=== PATIENT | female | born 1980 | race Caucasian/White ===

== ENCOUNTER 2020-09-02 14:42 | Emergency (ER) | payer MEDICAID, SELFPAY | END 2020-09-02 16:33 | disposition left against medical advice (07) | PROVIDERS: Emergency Provider Emergency Medicine | DX: R10.9 Unspecified abdominal pain (principal) ==

== ENCOUNTER → 2020-09-09 14:49 | Outpatient (BNVA) | payer MEDICAID, SELFPAY | PROVIDERS: Visit Provider Advanced Practice Midwife | DX: O09.899 Supervision of other high risk pregnancies, unspecified trimester (principal); E66.01 Morbid (severe) obesity due to excess calories; Z68.43 Body mass index [BMI] 50.0-59.9, adult; N92.6 Irregular menstruation, unspecified; F17.210 Nicotine dependence, cigarettes, uncomplicated | CPT/HCPCS: 81025; 99212 ==

== ENCOUNTER 2020-09-11 14:24 | Outpatient (REF) | payer MEDICAID, SELFPAY ==
--- NOTE | ~2020-09-11 | US_ITS ---
EXAMINATION: OBSTETRICAL ULTRASOUND, FIRST TRIMESTER HISTORY: 40-year-old with the uncertain dates AMA LMP: 07/10/2020 COMPARISON: None TECHNIQUE: Real time transabdominal imaging with color and M-mode Doppler. FINDINGS: A single, live IUP CRL of 22 mm c/w 8.6wks is noted. Heart Rate: 167 beats per minute. Unable to visualize the ovaries due to bowel gas. GESTATIONAL AGE: 1. GA from LMP: 9.0 wks 2. GA from AUA: 8.6 wks ESTIMATED DATE OF DELIVERY: 1. VILLA from LMP: 04/16/2020 2. VILLA from AUA: 04/17/2021 US/US OB <= 14 weeks fetus IMPRESSION: A single live IUP CRL is consistent with 8.6 weeks of gestation confirming her VILLA of 04/16/2021 Unable to visualize ovaries. Thank you very much for this referral. This note was generated with a voice recognition program. Please excuse any errors which may have been overlooked during my review of this note. Sometimes these errors may affect the content or meaning of a given sentence.
== END 2020-09-11 14:25 | disposition home or self-care (01) ==
LOC: HO.US 14:24
PROVIDERS: Visit Provider Family Medicine
DX: O09.511 Supervision of elderly primigravida, first trimester (principal); Z3A.08 8 weeks gestation of pregnancy
CPT/HCPCS: 76801

== ENCOUNTER 2020-10-02 12:46 | Outpatient (REF) | payer MEDICAID, SELFPAY ==
--- NOTE | ~2020-10-02 | US_ITS ---
EXAMINATION: OBSTETRICAL ULTRASOUND, FIRST TRIMESTER HISTORY: 40-year-old at 12.0 weeks of gestation AMA High BMI Family history of congenital abnormalities NT screening COMPARISON: 09/11/2020 TECHNIQUE: Real time transabdominal imaging with color and M-mode Doppler. FINDINGS: A single, live IUP CRL of 59 mm c/w 12.3wks is noted. Heart Rate: 165 beats per minute. Normal yolk sac seen. NT was 1.5.mm. NB Present The embryo appears sonographically wnl for this GA. Right ovary is within normal limits. The left ovary was not seen. GESTATIONAL AGE: 1. Established GA: 12.0 wks 2. GA from AUA: 12.3 wks ESTIMATED DATE OF DELIVERY: 1. Established VILLA: 04/16/2021 2. VILLA from [facility]: 04/13/2021 US/US OB 1T nuc measure IMPRESSION: 1. A single live IUP 2. Size equals dates 3. NT of 1.5 mm MFM Consultation: I reviewed the ultrasound findings along with significance of NT measurement. The NT of less than 3mm is generally reassuring. However, the sensitivity for T21 detection is only 60%. I reviewed the availability of serum aneuploidy screening which includes cell-free DNA and placental protein based tests. I discussed the sensitivity, false-positive rate, and other limitations associated with each test. I also reviewed the availability of invasive diagnostic tests that are associated small but definite risk of miscarriage. We also reviewed the differences between screening tests and diagnostic tests. After our discussion, she opted for the First trimester screening that is based on cell-free DNA or non-invasive testing (NIPT). She has a son who was born with hydrocephalus, open spina bifida and VSD that the closed spontaneously. He has multiple issues secondary to be open neural tube defect. Her first child was a healthy girl. Given her history, the risk to her fetus is approximately 3-5% for open neural tube defect. I recommended that she get maternal serum AFP screening for open neural tube defect at approximately 16 weeks of gestation. This should be followed by a survey at approximately 18-20 weeks of gestation. echo cardiography may be considered. I informed the patient that the survey and mid second trimester has 90% sensitivity for open neural tube defect. She is scheduled for an MFM consultation at the [facility] on October 30. Thank you very much for this referral. Total time 30 minutes. The time spent was devoted to counseling the patient about the disease and diagnosis, coordinating care including reviewing her records, pertinent lab data and studies, as well as discussing diagnostic evaluation and workup, plan therapeutic interventions and future disposition of care. This includes any additional research needed to obtain further information in formulating the plan of care of this patient. This note was generated with a voice recognition program. Please excuse any errors which may have been overlooked during my review of this note. Sometimes these errors may affect the content or meaning of a given sentence.
== END 2020-10-02 12:47 | disposition home or self-care (01) ==
LOC: HO.US 12:46
PROVIDERS: Visit Provider Advanced Practice Midwife
DX: Z36.82 Encounter for antenatal screening for nuchal translucency (principal); O09.511 Supervision of elderly primigravida, first trimester; Z3A.12 12 weeks gestation of pregnancy
CPT/HCPCS: 76813

== ENCOUNTER 2020-10-10 17:11 | Emergency (ER) | payer MEDICAID, SELFPAY ==
--- NOTE | ~2020-10-10 | US_ITS ---
EXAMINATION: US OBSTETRICAL ULTRASOUND CLINICAL INFORMATION: 13 weeks, vaginal bleeding COMPARISON: None. LMP: 07/10/2020. Gestational age by maternal dates is 13 weeks 1 day. Estimated date of delivery by maternal dates is 04/16/2021. TECHNIQUE: Ultrasound of the maternal pelvis is performed using transabdominal transducer. M-mode Doppler is also performed. FINDINGS: There is a single intrauterine gestational sac with a fetus and cardiac activity. There is no significant subchorionic hemorrhage or hematoma. HR: 169 beats per minute. CRL (crown rump length): 7.8 cm (13 weeks 6 days +/- 4 days). VILLA (estimated date of delivery): 04/11/2021 +/- 4 days. MATERNAL ADNEXA: Maternal right ovary not seen. Normal-appearing maternal left ovary measuring 2.8 x 2.3 x 1.8 cm. There is no significant maternal adnexal mass. No maternal pelvic ascites. US/US OB <= 14 weeks fetus IMPRESSION: 1. Single intrauterine gestation with ultrasound gestational age 13 weeks 6 days, 5 days less than dates. 2. Sonographic VILLA 04/11/2021. 3. No maternal adnexal mass or pelvic ascites.
[2020-10-10 17:15] VITALS: BP 130/67; PULSE 110; RESP 18; TEMP 36.9; O2SAT 97; BMI 42.0
[2020-10-10 18:38] VITALS: BP 106/68; PULSE 97; RESP 18; TEMP 36.6; O2SAT 97
[2020-10-10] MEDS: ondansetron HCL 4 MG/2 ML VIAL IVPUSH (18:57)
--- NOTE | 2020-10-10 19:00 | PC.NURSE ---
SUPPLIES FOR PELVIC EXAM BROUGHT TO BEDSIDE. AWAITING PROVIDER EVAL.
--- NOTE | 2020-10-10 19:02 | ED_ITS ---
HPI - General Chief complaint: Vaginal Bleeding Stated complaint: abd pain, bleeding 13 wks preg Time Seen by Provider: 10/10/20 18:34 Source: patient Mode of arrival: ambulatory Limitations: no limitations History of Present Illness HPI Narrative: 40-year-old female past medical history of morbid obesity, tobacco dependent, asthma, 4, para 2, both emergent with complications, miscarriage at age 20 prior to her children presents with sudden onset of lower abdominal cramping and vaginal bleeding. She is 13 weeks , and has not had any complications with her until this point. She was seen for constipation, given some medications and after large BM she noted vaginal bleeding. Vaginal bleeding has not stopped, approximately 1 pad per hour. She does not report any trauma or assault, chest pain or pressure, palpitations, shortness of breath, abdominal distention, dysuria, and edema. Related Data : 4 Para: 2 Total number of abortions (spontaneous and elective): 1 Home Medications Medication Instructions Recorded Confirmed albuterol sulfate 90 mcg/actuation 2 inh INHALATION Q4-6H PRN 09/09/20 breath activated powder inhaler Allergies Allergy/AdvReac Type Severity Reaction Status Date / Time No Known Allergies Allergy Verified 10/10/20 17:14 Review of Systems Review of Systems: Constitutional: No Fever, No Chills ENT/Mouth: No sore throat, No Rhinorrhea Eyes: No Eye Pain, No Redness Cardiovascular: No Chest Pain, No SOB Respiratory: No Cough, No Sputum, No Wheezing Gastrointestinal: positive Nausea, No Vomiting, No Diarrhea, positive abdominal pain, Genitourinary: Positive , positive irregular bleeding, No Dysuria, No Urinary Frequency, positive pelvic pain Musculoskeletal: No Myalgias Skin: No rash Neuro: No Weakness, No Headache Psych: No Anxiety/Panic, No Depression Heme/Lymph: No bruising, No Lymphadenopathy Endocrine: No Polyuria, No Polydipsia Yes all other systems are reviewed and are negative PMFSH Past Medical History Attestation statement: The following information was validated with the patient. Source: old records reviewed Medical History Asthma Bronchitis Cigarette smoker Morbid obesity with body mass index (BMI) of 50.0 to 59.9 in adult Tuberculosis Surgical History History of 2 sections : 4 Para: 2 Total number of abortions (spontaneous and elective): 1 Family History Family History Mother Diabetes mellitus Father Diabetes mellitus Sister Diabetes mellitus Social History Social History Alcohol intake: never Smoking Status: Never smoker Tobacco Type: Cigarette Cigarettes Per Day: 4 Use of substances other than those prescribed or required for medical reasons: No Advance Directives: No Advance Directives Information Provided: No Physical Exam Vital Signs: Vital Signs: Last Vital Signs Temp 98.4 F 10/10/20 21:53 Pulse 95 10/10/20 21:53 Resp 18 10/10/20 21:53 BP 113/67 10/10/20 21:53 Pulse Ox 97 10/10/20 21:53 Body Mass Index 42.0 Appearance: Alert. Oriented X3. No acute distress. Eyes: Pupils equal, round and reactive to light. EOMI, sclera nonicteric ENT: Pharynx normal. Moist mucous membranes Neck: Normal inspection. Neck supple. CVS: Normal heart rate and rhythm. Pulses normal. Respiratory: No respiratory distress. Breath sounds normal. Abdomen: Soft, obese, and nontender. Skin: Skin warm and dry. Normal skin color. Normal skin turgor. Extremities: No lower extremity edema. Moves all extremities against resistance. Neuro: No motor deficit. No sensory deficit. Cranial nerves 2-12 intact, no focal neural deficits. : General: Yes bladder normal to palpation External Female Exam: normal external appearance and normal appearance of the urethra Speculum Exam - Vagina: normal appearance of the vagina and normal palpation Speculum Exam - Cervix: normal appearance of the cervix, Cervical os closed (Two C sections, cervix appears nulliparous) and Abnormal cervical discharge present bloody Bimanual exam- vagina & uterus: normal bimanual exam, normal palpation, bladder normal to palpation and uterine mobility normal Bimanual Exam- Adnexa, other: normal adnexae, normal rectovaginal exam and no masses Course Course Course Narrative: 40-year-old female past medical history of morbid obesity, tobacco dependent, asthma, 4, para 2, both emergent with complications, miscarriage at age 20 prior to her children presents with sudden onset of lower abdominal cramping and vaginal bleeding. She is 13 weeks pr egnant, and has not had any complications with her until this point. Plan of care is for CBC, Chem 7, pelvic exam, AB0, hCG quant, and pelvic ultrasound. Labs are unremarkable, hCG quant over 15,000, A positive, there is bleeding from the os, os appears nulliparous secondary to C-sections. Pelvic ultrasound shows live intrauterine with heart rate of 165. At 9:13 p.m., discussion with Dr Wang, patient has a live intrauterine , plan is for patient to have bed rest, pelvic rest, and follow up with her OBGYN. This highly recommended that she follow up at [facility] in case she needs an emergent D and C as they have the medical equipment and providers on site. This recommendation will be discussed with the patient. Patient verbalized understanding of and agrees to plan of care discharge home. MDM - OB/Uterine Contractions MDM Narrative Medical decision making narrative: Abnormal vaginal bleeding, threatened , ectopic Medical Records Attestation: I reviewed the patient's medical records. Lab Data Attestation: I reviewed the patient's lab results. Result diagrams: 10/10/20 18:56 10/10/20 18:56 Labs: Lab Results 10/10/20 10/10/20 10/10/20 Range/Units 18:56 18:56 18:56 WBC 9.5 (4.8-10.8) X10*3/uL RBC 4.36 (4.20-5.50) X10*6/uL Hgb 12.7 (12.0-16.0) g/dl Hct 38.5 (37-47) % MCV 88.3 (80-98) fL MCH 29.1 (27.0-33.0) pg MCHC 33.0 (31.0-35.0) g/dl RDW 13.6 (11.0-16.0) % Plt Count 267 (160-400) X10*3/uL MPV 9.8 (9.4-12.3) fL Immature Gran % (Auto) 0.3 (0.0-0.4) % Neut % (Auto) 75.4 H (45-73) % Lymph % (Auto) 16.3 L (20-40) % [place] % (Auto) 6.8 (2-11) % Eos % (Auto) 0.8 (0-4) % Baso % (Auto) 0.4 (0-2) % Lymph # (Auto) 1.5 (1.2-4.9) X10*3/uL [place] # (Auto) 0.6 (0.1-1.2) X10*3/uL Eos # (Auto) 0.1 (0.0-0.4) X10*3/uL Baso # (Auto) 0.0 (0.0-0.2) X10*3/uL Abs Immat Gran (auto) 0.03 (0.00-0.03) X10*3/uL Absolute Neuts (auto) 7.1 (2.0-8.3) X10*3/uL Absolute Nucleated RBC 0.000 (0.0-0.012) X10*3/uL Nucleated RBC % (auto) 0.0 (0.0-0.2) /100WBC PT 12.1 (10.8-13.0) SEC INR 1.0 (0.9-1.1) APTT 32.1 (24.1-38.0) SEC Sodium 136 (135-145) mmol/L Potassium 4.0 (3.3-5.1) mmol/L Chloride 103 (96-108) mmol/L Carbon Dioxide 21 L (22-29) mmol/L Anion Gap 16 (12-20) BUN 6 L (9-16) mg/dL Creatinine 0.63 (0.5-1.4) mg/dL Estim Creat Clear Calc 135.8 Estimated GFR > 60 Random Glucose 82 (60-115) mg/dL Calcium 9.1 (8.4-10.2) mg/dL Beta HCG, Quant > 28015 mIU/mL Urine Color Urine Appearance Urine pH (5.0-8.0) Ur Specific [place] (1.005-1.025) Urine Protein (NEG-TRACE) MG/DL Urine Glucose (UA) (NEG) MG/DL Urine Ketones (NEG) MG/DL Urine Blood (NEG) Urine Nitrite (NEG) Ur Leukocyte Esterase (NEG) Urine RBC (0) /HPF Urine WBC (0-4) /HPF Ur Squamous Epith Cells /LPF Urine Bacteria /LPF Blood Type 10/10/20 10/10/20 Range/Units 19:11 21:15 WBC (4.8-10.8) X10*3/uL RBC (4.20-5.50) X10*6/uL Hgb (12.0-16.0) g/dl Hct (37-47) % MCV (80-98) fL MCH (27.0-33.0) pg MCHC (31.0-35.0) g/dl RDW (11.0-16.0) % Plt Count (160-400) X10*3/uL MPV (9.4-12.3) fL Immature Gran % (Auto) (0.0-0.4) % Neut % (Auto) (45-73) % Lymph % (Auto) (20-40) % [place] % (Auto) (2-11) % Eos % (Auto) (0-4) % Baso % (Auto) (0-2) % Lymph # (Auto) (1.2-4.9) X10*3/uL [place] # (Auto) (0.1-1.2) X10*3/uL Eos # (Auto) (0.0-0.4) X10*3/uL Baso # (Auto) (0.0-0.2) X10*3/uL Abs Immat Gran (auto) (0.00-0.03) X10*3/uL Absolute Neuts (auto) (2.0-8.3) X10*3/uL Absolute Nucleated RBC (0.0-0.012) X10*3/uL Nucleated RBC % (auto) (0.0-0.2) /100WBC PT (10.8-13.0) SEC INR (0.9-1.1) APTT (24.1-38.0) SEC Sodium (135-145) mmol/L Potassium (3.3-5.1) mmol/L Chloride (96-108) mmol/L Carbon Dioxide (22-29) mmol/L Anion Gap (12-20) BUN (9-16) mg/dL Creatinine (0.5-1.4) mg/dL Estim Creat Clear Calc Estimated GFR Random Glucose (60-115) mg/dL Calcium (8.4-10.2) mg/dL Beta HCG, Quant mIU/mL Urine Color RED Urine Appearance TURBID Urine pH 7.0 (5.0-8.0) Ur Specific [place] 1.025 (1.005-1.025) Urine Protein 2+ H (NEG-TRACE) MG/DL Urine Glucose (UA) NEG (NEG) MG/DL Urine Ketones 5 (NEG) MG/DL Urine Blood 3+ H (NEG) Urine Nitrite NEG (NEG) Ur Leukocyte Esterase NEG (NEG) Urine RBC 30-49 H (0) /HPF Urine WBC 0-2 (0-4) /HPF Ur Squamous Epith Cells 1+ /LPF Urine Bacteria 1+ /LPF Blood Type A Positive Imaging Data Ob transvaginal sound: Attestation: I personally reviewed and interpreted this imaging study as follows: Radiologist's impression: EXAMINATION: US OBSTETRICAL ULTRASOUND CLINICAL INFORMATION: 13 weeks, vaginal bleeding COMPARISON: None. LMP: 07/10/2020. Gestational age by maternal dates is 13 weeks 1 day. Estimated date of delivery by maternal dates is 04/16/2021. TECHNIQUE: Ultrasound of the maternal pelvis is performed using transabdominal transducer. M-mode Doppler is also performed. FINDINGS: There is a single intrauterine gestational sac with a fetus and cardiac activity. There is no significant subchorionic hemorrhage or hematoma. HR: 169 beats per minute. CRL (crown rump length): 7.8 cm (13 weeks 6 days +/- 4 days). VILLA (estimated date of delivery): 04/11/2021 +/- 4 days. MATERNAL ADNEXA: Maternal right ovary not seen. Normal-appearing maternal left ovary measuring 2.8 x 2.3 x 1.8 cm. There is no significant maternal adnexal mass. No maternal pelvic ascites. US/US OB <= 14 weeks fetus IMPRESSION: 1. Single intrauterine gestation with ultrasound gestational age 13 weeks 6 days, 5 days less than dates. 2. Sonographic VILLA 04/11/2021. 3. No maternal adnexal mass or pelvic ascites. Discharge Plan Discharge Clinical Impression: Morbid obesity with body mass index (BMI) of 50.0 to 59.9 in adult, Threatened , Dysfunctional uterine bleeding Patient Disposition: Home, Self-Care Instructions: Threatened Miscarriage (ED), at 11 to 14 Weeks (ED) Additional Instructions: You were evaluated for vaginal bleeding during 1st trimester . Your pelvic ultrasound shows intrauterine with a rate of 165, gestational age 13 weeks 6 days. Pelvic exam indicates bleeding from cervical os, you must follow-up with your OBGYN. It is highly recommended that you follow-up with [facility] as they have the equipment acquired for emergency procedures and . This was highly recommended by Dr. Wang. He also recommends pelvic rest, meaning nothing in the vagina, and bed rest until you see your OBGYN. Thank you for choosing this emergency department for evaluation. Please follow-up with primary care physician as needed. Return to the emergency department for any new, concerning, or worsening symptoms. Prescriptions: No Action albuterol sulfate 90 mcg/actuation aerosol powdr breath activated 2 inh inhalation Q4-6H PRNRF: 0 Referrals: Sang Wang MD [Physician] - 2 days (Abnormal uterine bleeding at 13 weeks 6 days .) Interventions: ED Discharge Assessment Last Done: 10/10/20 21:56 Discharge Date/Time: 10/10/20 21:56
[2020-10-10 19:05] LABS: MANUAL DIFF FLAG NO
[2020-10-10 19:07] LABS: Basophils Percent Auto 0.4 % (0-2); Eosinophils Absolute Auto 0.1 X10*3/uL (0.0-0.4); Eosinophils Percent Auto 0.8 % (0-4); Hematocrit 38.5 % (37-47); Hemoglobin 12.7 g/dl (12.0-16.0); Imm Gran Abs Auto 0.03 X10*3/uL (0.00-0.03); Imm Gran Pct Auto 0.3 % (0.0-0.4); Lymphocytes Absolute Auto 1.5 X10*3/uL (1.2-4.9); Lymphocytes Percent Auto 16.3 % (20-40); Mean Corpuscular Hemoglobin 29.1 pg (27.0-33.0); Mean Corpuscular Volume 88.3 fL (80-98); Mean Platelet Volume 9.8 fL (9.4-12.3); Monocytes Absolute Auto 0.6 X10*3/uL (0.1-1.2); Monocytes Percent Auto 6.8 % (2-11); Neutrophils Absolute Auto 7.1 X10*3/uL (2.0-8.3); Neutrophils Percent Auto 75.4 % (45-73); Platelet Count 267 X10*3/uL (160-400); Red Blood Count 4.36 X10*6/uL (4.20-5.50); Red Cell Distribution Width 13.6 % (11.0-16.0); White Blood Count 9.5 X10*3/uL (4.8-10.8)
[2020-10-10 19:20] LABS: Prothrombin Time 12.1 SEC (10.8-13.0)
[2020-10-10 19:23] LABS: Partial Thromboplastin Time 32.1 SEC (24.1-38.0)
[2020-10-10 19:31] LABS: Anion Gap 16 (12-20); Blood Urea Nitrogen 6 mg/dL (9-16); Calcium 9.1 mg/dL (8.4-10.2); Carbon Dioxide 21 mmol/L (22-29); Chloride 103 mmol/L (96-108); Creatinine Clr Calc Pharmacy 135.8; Estimated Glomerular Filt Rate > 60; Glucose Random 82 mg/dL (60-115); Sodium 136 mmol/L (135-145)
[2020-10-10 20:02] LABS: HCG Quantitative > 15000 mIU/mL
[2020-10-10 20:13] VITALS: BP 104/69; PULSE 95; RESP 18; TEMP -12.5; TEMP 9.5; O2SAT 97
[2020-10-10 21:22] LABS: Glucose Urine UA NEG (NEG); Leukocyte Esterase Urine NEG (NEG); Nitrite Urine NEG (NEG); Specific Gravity - Urine 1.025 (1.005-1.025); Urine Blood 3+ (NEG); Urine Ketones 5 MG/DL (NEG); Urine Protein 2+ MG/DL (NEG-TRACE)
[2020-10-10 21:23] LABS: Appearance Urine TURBID; Color Urine RED
[2020-10-10 21:38] LABS: RBC Urine 30-49 /HPF (0); WBC Urine 0-2 /HPF (0-4)
[2020-10-10 21:39] LABS: Bacteria Urine 1+ /LPF; Squamous Epithelial Cell Urine 1+ /LPF
[2020-10-10 21:53] VITALS: BP 113/67; PULSE 95; RESP 18; TEMP 36.9; O2SAT 97
--- NOTE | 2020-10-10 23:48 | P.CONOB_ITS ---
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 CBC within normal, Rh positive, ultrasound showed 13 weeks and 6 days gestational sac intrauterine, heart rate 169 beats per spent. cc:: CC: [employer] - Review of Systems Review of Systems ROS Unobtainable: All systems reviewed & are unremarkable except as noted in HPI and below Cardiovascular: Denies Palpatations, Loss of consciousness and Chest pain Respiratory: Denies Cough, Wheezing and Shortness of breath Musculoskeletal: Denies Low back pain Gastrointestinal: Denies Heartburn, Constipation, Diarrhea, Nausea and Vomiting Genitourinary: Denies Pain with urination, Burning with urination and Urinary frequency Neurological: Denies Migranes Psychological: Denies Depression OB PMFSH Past Medical History Medical History Asthma Bronchitis Cigarette smoker Morbid obesity with body mass index (BMI) of 50.0 to 59.9 in adult Tuberculosis Family History Family History Mother Diabetes mellitus Father Diabetes mellitus Sister Diabetes mellitus Surgical History Surgical History History of 2 sections Social History Social History Alcohol intake: never Smoking Status: Never smoker Tobacco Type: Cigarette Cigarettes Per Day: 4 Use of substances other than those prescribed or required for medical reasons: No Advance Directives: No Advance Directives Information Provided: No Meds Allergies Allergy/AdvReac Type Severity Reaction Status Date / Time No Known Allergies Allergy Verified 10/10/20 17:14 Home Medications Medication Instructions Recorded Confirmed Last Taken Type albuterol sulfate 90 mcg/actuation 2 inh INHALATION Q4-6H PRN 09/09/20 Unknown History breath activated powder inhaler [employer]HOUSE [employer] Physical Exam Vitals Vital signs: Temp Pulse Resp BP Pulse Ox 98.4 F 95 18 113/67 97 10/10/20 21:53 10/10/20 21:53 10/10/20 21:53 10/10/20 21:53 10/10/20 21:53 Body Mass Index 42.0 Additional Comments: Exam per Rina Didonoato , abdominal exam benign, Pelvic exam closed cervix with no active bleeding [employer]HOU[employer] - Results Labs CBC & Chem 7: 10/10/20 18:56 10/10/20 18:56 Labs: Short CBC 10/10/20 Range/Units 18:56 WBC 9.5 (4.8-10.8) X10*3/uL Hgb 12.7 (12.0-16.0) g/dl Hct 38.5 (37-47) % Plt Count 267 (160-400) X10*3/uL BMP 10/10/20 18:56 Sodium 136 Potassium 4.0 Chloride 103 Carbon Dioxide 21 L BUN 6 L Creatinine 0.63 Calcium 9.1 Urine 10/10/20 Range/Units 21:15 Urine Color RED Urine Appearance TURBID Urine pH 7.0 (5.0-8.0) Ur Specific [place] 1.025 (1.005-1.025) Urine Protein 2+ H (NEG-TRACE) MG/DL Urine Glucose (UA) NEG (NEG) MG/DL Assessment and Plan (1) Threatened : Status: Acute Recommended the following instructions to be given to patient , SAB warnings, she is to go to emergency room in case of heavy bleeding or worsening of the abdominal pain preferrably at [facility] given her gestational age being above 12 weeks and possible need for a D and E, otherwise follow-up with her OBGYN appointment as scheduled on October 20
== END 2020-10-10 21:56 | disposition home or self-care (01) ==
PROVIDERS: Nurse Practitioner Family; Emergency Provider Student in an Organized Health Care Education/Training Program; PCP Internal Medicine
DX: O20.0 Threatened abortion (principal); N93.8 Other specified abnormal uterine and vaginal bleeding; O99.211 Obesity complicating pregnancy, first trimester; O09.521 Supervision of elderly multigravida, first trimester; O99.331 Smoking (tobacco) complicating pregnancy, first trimester; Z3A.13 13 weeks gestation of pregnancy
CPT/HCPCS: 36415; 76801; 80048; 81001; 84702; 85025; 85610; 85730; 86900; 86901; 96374; 99282; 99284; J2405

== ENCOUNTER 2020-11-05 15:19 | Emergency (ER) | payer MEDICAID, SELFPAY ==
[2020-11-05 16:00] VITALS: BP 103/63; PULSE 100; RESP 20; TEMP 36.5; O2SAT 97; BMI 43.9
[2020-11-05 16:56] LABS: Glucose Urine UA NEG (NEG); Leukocyte Esterase Urine TRACE (NEG); Nitrite Urine NEG (NEG); PH 6.5 (5.0-8.0); UACC Culture Trigger YES; Urine Blood NEG (NEG); Urine Ketones NEG (NEG); Urine Protein NEG (NEG-TRACE)
[2020-11-05 17:05] LABS: Appearance Urine CLEAR; Color Urine YELLOW
[2020-11-05 17:26] LABS: RBC Urine 0-2 /HPF (0); Squamous Epithelial Cell Urine 2+ /LPF; WBC Urine 0-2 /HPF (0-4)
== END 2020-11-05 18:25 | disposition left against medical advice (07) ==
PROVIDERS: Nurse Practitioner Family; Emergency Provider Emergency Medicine; PCP Family Medicine
DX: O26.92 Pregnancy related conditions, unspecified, second trimester (principal); Z3A.16 16 weeks gestation of pregnancy
CPT/HCPCS: 81001; 81003; 87086; 99283

== ENCOUNTER 2020-11-08 10:30 | Emergency (ER) | payer MEDICAID, SELFPAY ==
--- NOTE | ~2020-11-08 | US_ITS ---
EXAMINATION: LIMITED OBSTETRIC ULTRASOUND - SECOND TRIMESTER CLINICAL INFORMATION: Pelvic pain. Last menstrual period 07/10/2020 COMPARISON: 10/10/2020 TECHNIQUE: Transabdominal imaging of the uterus was performed utilizing quesada scale and color doppler technique, with m-mode imaging. FINDINGS: Single live intrauterine fetus in the transverse position with cardiac activity detected at 156bpm. movement is present. Amniotic fluid is grossly within normal limits. Posterior placenta. No perigestational hemorrhage. . US/US OB limited IMPRESSION: * Single live intrauterine fetus with estimated gestational age by ultrasound of 17 weeks, 2 days, for an estimated date of delivery 04/16/2021 (by last menstrual period). * No perigestational hemorrhage.
--- NOTE | ~2020-11-08 | US_ITS ---
EXAMINATION: US RETROPERITONEAL LIMITED (RENAL ONLY) CLINICAL INFORMATION: UTI with CVA tenderness. Assess for bilateral.. COMPARISON: Ultrasound of October 06, [address] of April 05, 2015 TECHNIQUE: Renal ultrasound. FINDINGS: RIGHT KIDNEY: 12.6 x 6.2 x 6.4 cm (SAG x AP x TRV). The kidney is normal in size, contour, and echogenicity. Renal cortical thickness is normal. No calculi or focal parenchymal lesions. No hydronephrosis. LEFT KIDNEY: 12.6 x 5.5 x 6.5 cm (SAG x AP x TRV). The kidney is normal in size, contour, and echogenicity. Renal cortical thickness is normal. No calculi or focal parenchymal lesions. No hydronephrosis. US/US renal BI IMPRESSION: No renal abnormality appreciated.
[2020-11-08 10:32] VITALS: BP 126/66; PULSE 108; RESP 20; TEMP 37.2; O2SAT 97; BMI 43.9
--- NOTE | 2020-11-08 11:06 | ED_ITS ---
HPI - Female Genitourinary General Chief complaint: Urogenital-Female Stated complaint: pain w/ urination Time Seen by Provider: 11/08/20 10:41 Source: patient Mode of arrival: ambulatory Limitations: no limitations History of Present Illness HPI Narrative: 40 y/o who is currently 17 weeks presents to the ER with 1 week of on/off painful urination and increased bladder pressure and pain. She reports a history of UTI in the past and reports this feels similar. She denies blood in her urine or abdominal pain. She reports bilateral middle and lower back pain. She has had vomiting and nausea throughout her but has been tolerating PO for the most part. No fever or chills. No vaginal bleedi ng, cramping, contractions or vaginal discharge. MD elicited complaint: dysuria and flank pain Onset (ago): day(s) (5-7) Location of symptoms: suprapubic and urethra Severity: moderate Female Urogenital Radiation: Non-Radiating Quality of pain: burning Consistency: intermittent Vaginal discharge: none Vaginal bleeding: none Urinary symptoms: Dysuria and Flank Pain Exacerbating factors: urination and movement Relieving factors: none Associated symptoms: nausea and vomiting Treatment prior to arrival: none Sexual activity: No Patient : Yes Related Data : 4 Para: 2 Total number of abortions (spontaneous and elective): 1 Home Medications Medication Instructions Recorded Confirmed albuterol sulfate 90 mcg/actuation 2 inh INHALATION Q4-6H PRN 09/09/20 breath activated powder inhaler Allergies Allergy/AdvReac Type Severity Reaction Status Date / Time No Known Allergies Allergy Verified 11/08/20 10:36 Review of Systems Review of Systems: Constitutional: No Fever, No Chills Cardiovascular: No Chest Pain, No SOB, No Orthopnea, No Edema Respiratory: No Cough, No Sputum Gastrointestinal: + Nausea, + Vomiting, No Diarrhea, No abdominal Pain, No Hematochezia, No Melena Genitourinary: + Dysuria, + Urinary Frequency, No Hematuria Musculoskeletal: No joint pain, + Myalgias Skin: No Skin Lesions, No rash Neuro: No Weakness, No Numbness, No Dizziness, No Headache Psych: + Anxiety/Panic, No Depression Heme/Lymph: No Bruising, No Lymphadenopathy Endocrine: No Polyuria, No Polydipsia PMFSH Past Medical History Medical History Asthma Bronchitis Cigarette smoker Morbid obesity with body mass index (BMI) of 50.0 to 59.9 in adult Tuberculosis Surgical History History of 2 sections : 4 Para: 2 Total number of abortions (spontaneous and elective): 1 Family History Family History Mother Diabetes mellitus Father Diabetes mellitus Sister Diabetes mellitus Social History Social History Alcohol intake: never Smoking Status: Current every day smoker Tobacco Type: Cigarette Cigarettes Per Day: 4 Use of substances other than those prescribed or required for medical reasons: No Advance Directives: No Advance Directives Information Provided: No Physical Exam Vital Signs: Vital Signs: Last Vital Signs Temp 99 F 11/08/20 10:32 Pulse 108 H 11/08/20 10:32 Resp 20 11/08/20 10:32 BP 126/66 11/08/20 10:32 Pulse Ox 97 11/08/20 10:32 Body Mass Index 43.9 Appearance: Alert. Oriented X3. No acute distress. Eyes: Pupils equal, round and reactive to light. ENT: Pharynx normal. Neck: Normal inspection. Neck supple. CVS: Tachycardic, regular rhythm. Pulses normal. Respiratory: No respiratory distress. Breath sounds normal. Abdomen: morbidly obese, Soft and with suprapubic tendernss. unable to appreciate uterine fundus due to body habitus. +BS x4. +CVA tenderness bilaterally. Pelvic exam deferred. Skin: Skin warm and dry. Normal skin color. Normal skin turgor. No rashes. Extremities: No lower extremity edema. Neuro: Oriented X 3. No motor deficit. No sensory deficit. Course Course Course Narrative: 40 y/o female who is 17 weeks presents to the ED with dyuria and back pain x1 week. Tachycardic on arrival and appears uncomfortable. She is not febrile. Concern for UTI with possible ascending infection. Will get labs and UA as well as renal ultrasound to assess for changes of pyelonephritis vs obstruction. She is very anxious about having another miscarriage. She had a spontaneous at 13 weeks in the past. She is requesting a ultrasound. She denies vaginal bleeding or cramping. Will order for reassurance. Reevaluation(s) Reevaluation #1: UA completely negative. No leukocytosis. Renal US normal and US is normal 17 week fetus w/ HR 150's. No signs of infeciton. She was given tylenol for back pain with significant improvement. She is reassured with her negative workup. She has an appointment with her OB at [facility] on 11/[facility]. She is stable for discharge with plans for outpatient follow up. MDM - Female Genitourinary Lab Data Result diagrams: 11/08/20 11:05 11/08/20 11:05 Labs: Lab Results 11/08/20 11/08/20 11/08/20 Range/Units 11:05 11:05 11:05 WBC 9.4 (4.8-10.8) X10*3/uL RBC 4.06 L (4.20-5.50) X10*6/uL Hgb 11.9 L (12.0-16.0) g/dl Hct 36.0 L (37-47) % MCV 88.7 (80-98) fL MCH 29.3 (27.0-33.0) pg MCHC 33.1 (31.0-35.0) g/dl RDW 13.4 (11.0-16.0) % Plt Count 263 (160-400) X10*3/uL MPV 9.7 (9.4-12.3) fL Immature Gran % (Auto) 0.5 H (0.0-0.4) % Neut % (Auto) 79.4 H (45-73) % Lymph % (Auto) 12.8 L (20-40) % [place] % (Auto) 6.3 (2-11) % Eos % (Auto) 0.7 (0-4) % Baso % (Auto) 0.3 (0-2) % Lymph # (Auto) 1.2 (1.2-4.9) X10*3/uL [place] # (Auto) 0.6 (0.1-1.2) X10*3/uL Eos # (Auto) 0.1 (0.0-0.4) X10*3/uL Baso # (Auto) 0.0 (0.0-0.2) X10*3/uL Abs Immat Gran (auto) 0.05 H (0.00-0.03) X10*3/uL Absolute Neuts (auto) 7.5 (2.0-8.3) X10*3/uL Absolute Nucleated RBC 0.000 (0.0-0.012) X10*3/uL Nucleated RBC % (auto) 0.0 (0.0-0.2) /100WBC Sodium 135 (135-145) mmol/L Potassium 4.0 (3.3-5.1) mmol/L Chloride 104 (96-108) mmol/L Carbon Dioxide 21 L (22-29) mmol/L Anion Gap 14 (12-20) BUN 5 L (9-16) mg/dL Creatinine 0.58 (0.5-1.4) mg/dL Estim Creat Clear Calc 151.3 Estimated GFR > 60 Random Glucose 98 (60-115) mg/dL Lactic Acid 1.8 (0.5-2.0) mmol/L Calcium 9.0 (8.4-10.2) mg/dL Magnesium 2.0 (1.6-2.6) mg/dL Total Bilirubin < 0.2 (0.0-1.0) mg/dL Direct Bilirubin < 0.2 (0.0-0.5) mg/dL AST 7 (5-31) U/L ALT < 6 (0-31) U/L Alkaline Phosphatase 64 (39-117) U/L Total Protein 6.6 (6.5-8.0) g/dL Albumin 3.4 L (3.5-5.0) g/dL Beta HCG, Quant 9184 mIU/mL Urine Color Urine Appearance Urine pH (5.0-8.0) Ur Specific [place] (1.005-1.025) Urine Protein (NEG-TRACE) MG/DL Urine Glucose (UA) (NEG) MG/DL Urine Ketones (NEG) MG/DL Urine Blood (NEG) Urine Nitrite (NEG) Ur Leukocyte Esterase (NEG) 11/08/20 Range/Units 11:26 WBC (4.8-10.8) X10*3/uL RBC (4.20-5.50) X10*6/uL Hgb (12.0-16.0) g/dl Hct (37-47) % MCV (80-98) fL MCH (27.0-33.0) pg MCHC (31.0-35.0) g/dl RDW (11.0-16.0) % Plt Count (160-400) X10*3/uL MPV (9.4-12.3) fL Immature Gran % (Auto) (0.0-0.4) % Neut % (Auto) (45-73) % Lymph % (Auto) (20-40) % [place] % (Auto) (2-11) % Eos % (Auto) (0-4) % Baso % (Auto) (0-2) % Lymph # (Auto) (1.2-4.9) X10*3/uL [place] # (Auto) (0.1-1.2) X10*3/uL Eos # (Auto) (0.0-0.4) X10*3/uL Baso # (Auto) (0.0-0.2) X10*3/uL Abs Immat Gran (auto) (0.00-0.03) X10*3/uL Absolute Neuts (auto) (2.0-8.3) X10*3/uL Absolute Nucleated RBC (0.0-0.012) X10*3/uL Nucleated RBC % (auto) (0.0-0.2) /100WBC Sodium (135-145) mmol/L Potassium (3.3-5.1) mmol/L Chloride (96-108) mmol/L Carbon Dioxide (22-29) mmol/L Anion Gap (12-20) BUN (9-16) mg/dL Creatinine (0.5-1.4) mg/dL Estim Creat Clear Calc Estimated GFR Random Glucose (60-115) mg/dL Lactic Acid (0.5-2.0) mmol/L Calcium (8.4-10.2) mg/dL Magnesium (1.6-2.6) mg/dL Total Bilirubin (0.0-1.0) mg/dL Direct Bilirubin (0.0-0.5) mg/dL AST (5-31) U/L ALT (0-31) U/L Alkaline Phosphatase (39-117) U/L Total Protein (6.5-8.0) g/dL Albumin (3.5-5.0) g/dL Beta HCG, Quant mIU/mL Urine Color YELLOW Urine Appearance HAZY Urine pH 7.0 (5.0-8.0) Ur Specific [place] <= 1.005 (1.005-1.025) Urine Protein NEG (NEG-TRACE) MG/DL Urine Glucose (UA) NEG (NEG) MG/DL Urine Ketones NEG (NEG) MG/DL Urine Blood NEG (NEG) Urine Nitrite NEG (NEG) Ur Leukocyte Esterase NEG (NEG) Discharge Plan Discharge Clinical Impression: Dysuria Patient Disposition: Home, Self-Care Instructions: Dysuria (ED), at 15 to 18 Weeks (ED) Additional Instructions: Your lab workup today was unremarkable. Your urine test was normal, no signs of infection. Your kidney ultrasounds were normal. Your ultrasound was normal. Estimated delivery date of 04/16/21. Follow up with your OB on November 20 as scheduled. Take Tylenol as needed for pain. If you have worsening symptoms come back to the ER for further evaluation. Prescriptions: No Action albuterol sulfate 90 mcg/actuation aerosol powdr breath activated 2 inh inhalation Q4-6H PRNRF: 0 Discharge Date/Time: 11/08/20 13:04
[2020-11-08] MEDS: 0.9 % Sodium Chloride 1,000 ML 999 ML IVCONT (11:08)
[2020-11-08 11:11] LABS: MANUAL DIFF FLAG NO
[2020-11-08 11:13] LABS: Basophils Percent Auto 0.3 % (0-2); Eosinophils Absolute Auto 0.1 X10*3/uL (0.0-0.4); Eosinophils Percent Auto 0.7 % (0-4); Hemoglobin 11.9 g/dl (12.0-16.0); Imm Gran Abs Auto 0.05 X10*3/uL (0.00-0.03); Imm Gran Pct Auto 0.5 % (0.0-0.4); Lymphocytes Absolute Auto 1.2 X10*3/uL (1.2-4.9); Lymphocytes Percent Auto 12.8 % (20-40); Mean Corpuscular HGB Conc 33.1 g/dl (31.0-35.0); Mean Corpuscular Hemoglobin 29.3 pg (27.0-33.0); Mean Corpuscular Volume 88.7 fL (80-98); Mean Platelet Volume 9.7 fL (9.4-12.3); Monocytes Absolute Auto 0.6 X10*3/uL (0.1-1.2); Monocytes Percent Auto 6.3 % (2-11); Neutrophils Absolute Auto 7.5 X10*3/uL (2.0-8.3); Neutrophils Percent Auto 79.4 % (45-73); Platelet Count 263 X10*3/uL (160-400); Red Blood Count 4.06 X10*6/uL (4.20-5.50); Red Cell Distribution Width 13.4 % (11.0-16.0); White Blood Count 9.4 X10*3/uL (4.8-10.8)
[2020-11-08] MEDS: Acetaminophen 325 MG TABLET 975 MG PO (11:24)
--- NOTE | 2020-11-08 11:32 | PC.NURSE ---
patient a&ox3, vss, iv inserted, labs drawn, urine obtained, pt medicated per order, will continue to monitor.
[2020-11-08 11:35] LABS: Glucose Urine UA NEG (NEG); Leukocyte Esterase Urine NEG (NEG); Nitrite Urine NEG (NEG); Specific Gravity - Urine <= 1.005 (1.005-1.025); Urine Blood NEG (NEG); Urine Ketones NEG (NEG); Urine Protein NEG (NEG-TRACE)
[2020-11-08 11:36] LABS: Lactic Acid 1.8 mmol/L (0.5-2.0)
[2020-11-08 11:38] LABS: Appearance Urine HAZY; Color Urine YELLOW
[2020-11-08 11:42] LABS: Alanine Aminotransferase < 6 U/L (0-31); Albumin Level 3.4 g/dL (3.5-5.0); Alkaline Phosphatase 64 U/L (39-117); Anion Gap 14 (12-20); Aspartate Amino Transferase 7 U/L (5-31); Bilirubin Direct < 0.2 mg/dL (0.0-0.5); Bilirubin Total < 0.2 mg/dL (0.0-1.0); Blood Urea Nitrogen 5 mg/dL (9-16); Carbon Dioxide 21 mmol/L (22-29); Chloride 104 mmol/L (96-108); Creatinine Clr Calc Pharmacy 151.3; Estimated Glomerular Filt Rate > 60; Glucose Random 98 mg/dL (60-115); Sodium 135 mmol/L (135-145); Total Protein 6.6 g/dL (6.5-8.0)
[2020-11-08 11:58] LABS: HCG Quantitative 9184 mIU/mL
--- NOTE | 2020-11-08 12:01 | PC.NURSE ---
bedside US performed
== END 2020-11-08 13:04 | disposition home or self-care (01) ==
PROVIDERS: Physician Assistant; Emergency Provider Emergency Medicine; PCP Family Medicine
DX: O26.92 Pregnancy related conditions, unspecified, second trimester (principal); R10.2 Pelvic and perineal pain; Z3A.15 15 weeks gestation of pregnancy
CPT/HCPCS: 36415; 76775; 76815; 80048; 80076; 81003; 83605; 83735; 84702; 85025; 87040; 96360; 99284

== ENCOUNTER 2021-01-24 11:21 | Emergency (ER) | payer MEDICAID, SELFPAY ==
[2021-01-24 11:25] VITALS: BP 105/68; PULSE 104; RESP 18; TEMP 36.7; O2SAT 96; BMI 47.5
== END 2021-01-24 13:17 | disposition left against medical advice (07) ==
PROVIDERS: Emergency Provider Emergency Medicine; PCP Family Medicine
DX: R05 Cough (principal)
CPT/HCPCS: 99281; 99282

== ENCOUNTER 2021-02-14 15:03 | Emergency (ER) | payer MEDICAID, SELFPAY ==
--- NOTE | ~2021-02-14 | US_ITS ---
EXAMINATION: ULTRASOUND OB LIMITED CLINICAL INFORMATION: 32 weeks unable to feel movement. COMPARISON: Ultrasound of the 11/08/2020. TECHNIQUE: Transabdominal ultrasound imaging was performed. FINDINGS: There is a single live intrauterine fetus with a heart rate of 135 bpm and cephalic presentation. On biophysical profile there is normal tone-2, breathing-2, motion-2 and amniotic fluid-2. The MAZIN is 15.5. Placenta is posterior posterior. Gestational age is 31 weeks 2 days based on previous ultrasound imaging. US/US OB limited IMPRESSION: Biophysical profile is 8/8. Adequate amniotic fluid with an MAZIN of 15.5. heart rate is 135 bpm.
--- NOTE | ~2021-02-14 | US_ITS ---
EXAMINATION: US DIAGNOSTIC ULTRASOUND BREAST, RIGHT CLINICAL INFORMATION: Pain. COMPARISON: Breast ultrasound dated 10/25/2019. TECHNIQUE: Ultrasound of the breast is performed with real-time quesada scale imaging and color Doppler. FINDINGS: There is a complicated juxta dermal fluid collection measuring 4.1 x 2.2 x 3.7 cm along the 2-3:00 axis with surrounding parenchymal hyperemia. No internal blood flow. Appearance is most compatible with an abscess. US/US breast RT limited IMPRESSION: Findings compatible with a breast abscess as described ASSESSMENT: BI-RADS 2: Benign RECOMMENDATION: 1. Patient should be managed based on the clinical impression. Decision to proceed with biopsy should be based on clinical grounds and degree of clinical concern. 2. Otherwise, routine annual screening mammography beginning at age 40. This patient's information was entered into a reminder system with a target due date for their next mammogram.
[2021-02-14 15:08] VITALS: BP 107/56; PULSE 112; RESP 18; TEMP 36; O2SAT 97; BMI 42.0
[2021-02-14 16:08] LABS: Basophils Percent Auto 0.2 % (0-2); Eosinophils Absolute Auto 0.1 X10*3/uL (0.0-0.4); Hematocrit 32.9 % (37-47); Hemoglobin 10.9 g/dl (12.0-16.0); Imm Gran Abs Auto 0.19 X10*3/uL (0.00-0.03); Imm Gran Pct Auto 1.8 % (0.0-0.4); Lymphocytes Absolute Auto 1.3 X10*3/uL (1.2-4.9); Lymphocytes Percent Auto 12.7 % (20-40); MANUAL DIFF FLAG NO; Mean Corpuscular HGB Conc 33.1 g/dl (31.0-35.0); Mean Corpuscular Hemoglobin 29.5 pg (27.0-33.0); Mean Corpuscular Volume 88.9 fL (80-98); Mean Platelet Volume 9.6 fL (9.4-12.3); Monocytes Absolute Auto 0.6 X10*3/uL (0.1-1.2); Monocytes Percent Auto 6.1 % (2-11); Neutrophils Absolute Auto 8.1 X10*3/uL (2.0-8.3); Neutrophils Percent Auto 78.2 % (45-73); Platelet Count 322 X10*3/uL (160-400); Red Cell Distribution Width 13.3 % (11.0-16.0); White Blood Count 10.4 X10*3/uL (4.8-10.8)
--- NOTE | 2021-02-14 16:11 | ED.GENADULT ---
HPI - General Adult General Chief complaint: General Medical Stated complaint: 32 preg no fetus movement x2days Time Seen by Provider: 02/14/21 15:33 Source: patient Mode of arrival: ambulatory Limitations: no limitations History of Present Illness HPI narrative: 40-year-old female who is [id number] who is currently 31 weeks with a due date of April 16 being followed by [facility] presenting to the ED with multiple complaints which include intermittent dizziness. She reports that it does not worsen with change in movement. And nothing seems to make the dizziness better it is just intermittent. Her 2nd complaint is she has been unable to feel movement for the past 2 days and she is concerned. Her 3rd complaint is that she has a large abscess to her right breast near the nipple for the past few days as well. She denies any fevers, chills, headaches, neck pain/stiffness, chest pain, shortness of breath, dyspnea on exertion, orthopnea, palpitations, abdominal pain, back pain, vaginal bleeding, hematuria, abnormal vaginal discharge, dysuria, diarrhea, constipation or any other symptoms complaints or concerns at this time. Related Data Home Medications Medication Instructions Recorded Confirmed albuterol sulfate 90 mcg/actuation 2 inh INHALATION Q4-6H PRN 09/09/20 breath activated powder inhaler Previous Rx's Medication Instructions Recorded cephalexin 500 mg capsule 500 mg PO Q6H 10 Days #40 cap 02/14/21 Allergies Allergy/AdvReac Type Severity Reaction Status Date / Time No Known Allergies Allergy Verified 11/08/20 10:36 Review of Systems Review of Systems: Constitutional : No Weight loss, No Fever, No Chills, No Night Sweats, No Fatigue, No Malaise ENT/Mouth: No ear pain, No sore throat, No Difficulty swallowing Cardiovascular : No Chest Pain, No SOB, No Dyspnea on Exertion, No Orthopnea, No Edema, No Palpitations Respiratory : No Cough, No Sputum, No Wheezing, No Dyspnea Gastrointestinal : No Nausea, No Vomiting, No abdominal pain, No Diarrhea, No blood streaked emesis, No coffee-ground emesis, No gross hematemesis, No blood streak stool, No gross hematochezia, No Melena Genitourinary : No irregular bleeding, No Dysuria, No Urinary Frequency, No Hematuria,No Urinary Incontinence, No Urgency, No Flank Pain Musculoskeletal : No joint pain, No Myalgias, No Joint Swelling Skin :+ abscess to right breast c surrounding erythema, No Skin Lesions, No rash Neuro : + intermittent dizziness, No Weakness, No Numbness, No Paresthesias, No Loss of Consciousness, No Headache Psych : No Social Issues, Heme/Lymph: No Bruising, No Bleeding,No Lymphadenopathy Endocrine : No Polyuria, No Polydipsia, No Temperature Intolerance Yes all other systems are reviewed and are negative [facility] Past Medical History Attestation statement: The following information was validated with the patient. Medical History Asthma Bronchitis Cigarette smoker Gestational diabetes Morbid obesity with body mass index (BMI) of 50.0 to 59.9 in adult Tuberculosis Surgical History History of 2 sections Family History Family History Mother Diabetes mellitus Father Diabetes mellitus Sister Diabetes mellitus Social History Social History Alcohol intake: never Cigarettes Per Day: 4 Advance Directives: No Advance Directives Information Provided: Yes Patient : Yes Physical Exam Vital Signs: Vital Signs: Last Vital Signs Temp 96.8 F 02/14/21 15:08 Pulse 105 H 02/14/21 16:44 Resp 18 02/14/21 16:44 BP 103/64 02/14/21 16:44 Pulse Ox 97 02/14/21 16:44 Body Mass Index 42.0 vital signs have been reviewed as normal and appeared to be correct. Blood pressure hypotensive at 107/56 Heart rate tachycardic at 112. Respiration rate normal. Temperature normal. Oxygen saturation normal. Appearance: Alert. Oriented X3. No acute distress. Head: Normal external exam. Normocephalic. Atraumatic. Eyes: PERRLA. EOMI. Conjunctiva and sclera normal. Eyelids normal. ENT: Pharynx normal. Uvula midline. Moist mucous membranes. Neck: Normal inspection. Neck supple. FROM. No adenopathy. Thyroid Normal. No meningeal signs. No neck mass noted. CVS: Normal heart rate and rhythm. Heart sound normal. Pulses normal throughout. No murmurs/rales/gallops. Breast Exam: To right breast at the 3-4:00 o'clock aspect patient has moderate fluctuance with moderate surrounding erythema. No streaking/induration/drainage or foreign bodies noted. No axillary lymphadenopathy is noted. No rashes are noted. Respiratory: No respiratory distress. Painless inspiration. Breath sounds normal. No wheezes/rales/rhonchi noted. Chest nontender. No accessory muscle usage noted or decreased air movement noted. Abdomen: Soft and nontender. Bowel sounds normal in all 4 quadrants. No distention noted. No organomegaly noted. No visible injury noted. Normal tones at 144. Gravid uterus consistent with 32 weeks. Back: No CVA tenderness. Full range of motion noted. No rashes/lesion/induration/fluctuance or signs of infection noted. Skin: Skin warm and dry. Normal skin color. Normal skin turgor. No rashes/lesions/lacerations noted. Extremities: No lower extremity edema. No calf tenderness. Extremities exhibit normal range of motion. Extremities nontender. Neuro: Oriented X 3. No motor deficit. No sensory deficit. Reflexes normal. Moving all extremities. No focal motor deficits. Cranial nerves II-XI intact bilaterally. Facial strength normal. Normal cognition. Speech normal. Gait normal. Strength 5/5 throughout. No pronator drift. No tremor noted. No fasciculations noted. No rigidity noted. Muscle tone normal throughout. No asterixis noted. [id number] test normal. Heel to nguyen test normal. Tandem gait normal. Does not sway with eyes open. Romberg test negative. Rapid alternating movement upper extremity normal. Rapid alternating movement lower extremity normal. Hand drop from overhead Misses face. Vascular: + radial pulses/+ 2 distal pedal pulses/+2 dorsalis pedis b/l. Normal cap refill. No cyanosis noted to upper extremity nails and lower extremity toes nails. Course Course Course Narrative: 15:40pm - 40-year-old female who is [id number] who is currently 31 weeks with a due date of April 16 being followed by [facility] presenting to the ED with multiple complaints which include intermittent dizziness. She reports that it does not worsen with change in movement. And nothing seems to make the dizziness better it is just intermittent. Her 2nd complaint is she has been unable to feel movement for the past 2 days and she is concerned. Her 3rd complaint is that she has a large abscess to her right breast near the nipple for the past few days as well. Plan: Labs, Blood cultures, Lactic acid, orthostatic vitals, OB abd US and Right breast US. Provide IVF's and Zosyn for Right breast abscess and consult with Dr. Wang. Reevaluation(s) Reevaluation #1: - orthostatic vitals negative. - patient with mild baseline anemia similar when compared to prior. Carbon dioxide 19. BUN 7. Alkaline phosphate 137. Albumin 3.1. Serum quant 2767. Otherwise all other Labs are within normal limits. - UA with 5 ketones and +1 protein otherwise no evidence of UTI. - COVID swab negative. - pending ultrasound of right breast and OB ultrasound will re-evaluate. Time: 16:45 Reevaluation #2: - ultrasound revealed FINDINGS: There is a single live intrauterine fetus with a heart rate of 135 bpm and cephalic presentation. On biophysical profile there is normal tone-2, breathing-2, motion-2 and amniotic fluid-2. The MAZIN is 15.5. Placenta is posterior posterior. Gestational age is 31 weeks 2 days based on previous ultrasound imaging. US/US OB limited IMPRESSION: Biophysical profile is? 8/8. Adequate amniotic fluid with an MAZIN of 15.5.? heart rate is 135 bpm.? - Therefore I consulted with Dr. Wang the OBGYN and he reported that the patient will need to be transferred for monitoring therefore will contact based at this time to transfer. Contacting [facility] At this time Time: 16:54 Reevaluation #3: - When I explained to the patient that she needed to be transferred to [facility] for NST and heart rate monitoring she refused and was very upset reported that if she wanted to go to [facility] she would've went there in the [address]st place and that is why she came here for treatment that she does not want to be transferred to the [facility] and she will definitely not be admitted at [facility]. She attempted to pull out her own IV out. Then Dr. Wang the OBGYN consulted was able to speak to her over the phone and explained the importance of her being transferred for NST and heart monitoring due to she is at risk for , her fetus is at risk for or disability and she reports she understands this and despite all of this she refuses to be transferred. - We explained to her that her right breast abscess and her dizziness will be evaluated after NST and heart rate is assured although patient still wants to leave against medical advice. - Patient is alert and oriented x3. She is able to make her own medical decisions. And her decision at this time is to leave against medical advice despite myself and Dr. Wang explaining to her the importance of being transferred multiple times. Time: 17:31 Medical Decision Making Medical Records Medical records reviewed: Yes I reviewed the patient's medical records. Lab Data Lab results reviewed: Yes I reviewed the patient's lab results. Result diagrams: 02/14/21 15:56 02/14/21 15:56 Labs: Lab Results 02/14/21 02/14/21 02/14/21 Range/Units 15:55 15:55 15:55 WBC (4.8-10.8) X10*3/uL RBC (4.20-5.50) X10*6/uL Hgb (12.0-16.0) g/dl Hct (37-47) % MCV (80-98) fL MCH (27.0-33.0) pg MCHC (31.0-35.0) g/dl RDW (11.0-16.0) % Plt Count (160-400) X10*3/uL MPV (9.4-12.3) fL Immature Gran % (Auto) (0.0-0.4) % Neut % (Auto) (45-73) % Lymph % (Auto) (20-40) % [place] % (Auto) (2-11) % Eos % (Auto) (0-4) % Baso % (Auto) (0-2) % Lymph # (Auto) (1.2-4.9) X10*3/uL [place] # (Auto) (0.1-1.2) X10*3/uL Eos # (Auto) (0.0-0.4) X10*3/uL Baso # (Auto) (0.0-0.2) X10*3/uL Abs Immat Gran (auto) (0.00-0.03) X10*3/uL Absolute Neuts (auto) (2.0-8.3) X10*3/uL Absolute Nucleated RBC (0.0-0.012) X10*3/uL Nucleated RBC % (auto) (0.0-0.2) /100WBC Hold Purple Top PT 12.3 (9.9-13.0) SEC INR 1.1 (0.9-1.1) Sodium (135-145) mmol/L Potassium (3.3-5.1) mmol/L Chloride (96-108) mmol/L Carbon Dioxide (22-29) mmol/L Anion Gap (12-20) BUN (9-16) mg/dL Creatinine (0.5-1.4) mg/dL Estim Creat Clear Calc Estimated GFR Random Glucose (60-115) mg/dL Lactic Acid 1.1 (0.5-2.0) mmol/L Calcium (8.4-10.2) mg/dL Magnesium (1.6-2.6) mg/dL Total Bilirubin (0.0-1.0) mg/dL AST (5-31) U/L ALT (0-31) U/L Alkaline Phosphatase (39-117) U/L Total Protein (6.5-8.0) g/dL Albumin (3.5-5.0) g/dL Beta HCG, Quant mIU/mL Urine Color Urine Appearance Urine pH (5.0-8.0) Ur Specific [place] (1.005-1.025) Urine Protein (NEG-TRACE) MG/DL Urine Glucose (UA) (NEG) MG/DL Urine Ketones (NEG) MG/DL Urine Blood (NEG) Urine Nitrite (NEG) Ur Leukocyte Esterase (NEG) Urine RBC (0) /HPF Urine WBC (0-4) /HPF Ur Squamous Epith Cells /LPF Urine Bacteria /LPF COVID-19 ([facility]) Negative (Negative) COVID-19 Clin Com See Note 02/14/21 02/14/21 02/14/21 Range/Units 15:56 15:56 15:56 WBC 10.4 (4.8-10.8) X10*3/uL RBC 3.70 L (4.20-5.50) X10*6/uL Hgb 10.9 L (12.0-16.0) g/dl Hct 32.9 L (37-47) % MCV 88.9 (80-98) fL MCH 29.5 (27.0-33.0) pg MCHC 33.1 (31.0-35.0) g/dl RDW 13.3 (11.0-16.0) % Plt Count 322 (160-400) X10*3/uL MPV 9.6 (9.4-12.3) fL Immature Gran % (Auto) 1.8 H (0.0-0.4) % Neut % (Auto) 78.2 H (45-73) % Lymph % (Auto) 12.7 L (20-40) % [place] % (Auto) 6.1 (2-11) % Eos % (Auto) 1.0 (0-4) % Baso % (Auto) 0.2 (0-2) % Lymph # (Auto) 1.3 (1.2-4.9) X10*3/uL [place] # (Auto) 0.6 (0.1-1.2) X10*3/uL Eos # (Auto) 0.1 (0.0-0.4) X10*3/uL Baso # (Auto) 0.0 (0.0-0.2) X10*3/uL Abs Immat Gran (auto) 0.19 H (0.00-0.03) X10*3/uL Absolute Neuts (auto) 8.1 (2.0-8.3) X10*3/uL Absolute Nucleated RBC 0.000 (0.0-0.012) X10*3/uL Nucleated RBC % (auto) 0.0 (0.0-0.2) /100WBC Hold Purple Top SEE NOTE PT (9.9-13.0) SEC INR (0.9-1.1) Sodium 136 (135-145) mmol/L Potassium 3.9 (3.3-5.1) mmol/L Chloride 106 (96-108) mmol/L Carbon Dioxide 19 L (22-29) mmol/L Anion Gap 15 (12-20) BUN 7 L (9-16) mg/dL Creatinine 0.64 (0.5-1.4) mg/dL Estim Creat Clear Calc 133.7 Estimated GFR > 60 Random Glucose 107 (60-115) mg/dL Lactic Acid (0.5-2.0) mmol/L Calcium 8.7 (8.4-10.2) mg/dL Magnesium 1.8 (1.6-2.6) mg/dL Total Bilirubin 0.2 (0.0-1.0) mg/dL AST 11 D (5-31) U/L ALT 6 (0-31) U/L Alkaline Phosphatase 137 H D (39-117) U/L Total Protein 6.5 (6.5-8.0) g/dL Albumin 3.1 L (3.5-5.0) g/dL Beta HCG, Quant 2767 mIU/mL Urine Color Urine Appearance Urine pH (5.0-8.0) Ur Specific [place] (1.005-1.025) Urine Protein (NEG-TRACE) MG/DL Urine Glucose (UA) (NEG) MG/DL Urine Ketones (NEG) MG/DL Urine Blood (NEG) Urine Nitrite (NEG) Ur Leukocyte Esterase (NEG) Urine RBC (0) /HPF Urine WBC (0-4) /HPF Ur Squamous Epith Cells /LPF Urine Bacteria /LPF COVID-19 ([facility]) (Negative) COVID-19 Clin Com 02/14/21 Range/Units 15:56 WBC (4.8-10.8) X10*3/uL RBC (4.20-5.50) X10*6/uL Hgb (12.0-16.0) g/dl Hct (37-47) % MCV (80-98) fL MCH (27.0-33.0) pg MCHC (31.0-35.0) g/dl RDW (11.0-16.0) % Plt Count (160-400) X10*3/uL MPV (9.4-12.3) fL Immature Gran % (Auto) (0.0-0.4) % Neut % (Auto) (45-73) % Lymph % (Auto) (20-40) % [place] % (Auto) (2-11) % Eos % (Auto) (0-4) % Baso % (Auto) (0-2) % Lymph # (Auto) (1.2-4.9) X10*3/uL [place] # (Auto) (0.1-1.2) X10*3/uL Eos # (Auto) (0.0-0.4) X10*3/uL Baso # (Auto) (0.0-0.2) X10*3/uL Abs Immat Gran (auto) (0.00-0.03) X10*3/uL Absolute Neuts (auto) (2.0-8.3) X10*3/uL Absolute Nucleated RBC (0.0-0.012) X10*3/uL Nucleated RBC % (auto) (0.0-0.2) /100WBC Hold Purple Top PT (9.9-13.0) SEC INR (0.9-1.1) Sodium (135-145) mmol/L Potassium (3.3-5.1) mmol/L Chloride (96-108) mmol/L Carbon Dioxide (22-29) mmol/L Anion Gap (12-20) BUN (9-16) mg/dL Creatinine (0.5-1.4) mg/dL Estim Creat Clear Calc Estimated GFR Random Glucose (60-115) mg/dL Lactic Acid (0.5-2.0) mmol/L Calcium (8.4-10.2) mg/dL Magnesium (1.6-2.6) mg/dL Total Bilirubin (0.0-1.0) mg/dL AST (5-31) U/L ALT (0-31) U/L Alkaline Phosphatase (39-117) U/L Total Protein (6.5-8.0) g/dL Albumin (3.5-5.0) g/dL Beta HCG, Quant mIU/mL Urine Color YELLOW Urine Appearance HAZY Urine pH 6.5 (5.0-8.0) Ur Specific [place] 1.025 (1.005-1.025) Urine Protein 1+ H (NEG-TRACE) MG/DL Urine Glucose (UA) NEG (NEG) MG/DL Urine Ketones 5 (NEG) MG/DL Urine Blood NEG (NEG) Urine Nitrite NEG (NEG) Ur Leukocyte Esterase NEG (NEG) Urine RBC 0 (0) /HPF Urine WBC 0-2 (0-4) /HPF Ur Squamous Epith Cells 3+ /LPF Urine Bacteria 2+ /LPF COVID-19 ([facility]) (Negative) COVID-19 Clin Com Imaging Data Obstetric ultrasound: Attestation: I personally reviewed and interpreted this imaging study as follows: Radiologist's impression: FINDINGS: There is a single live intrauterine fetus with a heart rate of 135 bpm and cephalic presentation. On biophysical profile there is normal tone-2, breathing-2, motion-2 and amniotic fluid-2. The MAZIN is 15.5. Placenta is posterior posterior. Gestational age is 31 weeks 2 days based on previous ultrasound imaging. US/US OB limited IMPRESSION: Biophysical profile is? 02/21. ? Adequate amniotic fluid with an MAZIN of 15.5. ? heart rate is 135 bpm.? Critical Care Time Critical Care Time Critical Care Time: Yes Total Critical Care Time: 60 Attestation: I personally attest to this time spent taking care of the patient Discharge Plan Discharge Clinical Impression: Abscess of right breast, Dizziness, 31 to 32 weeks gestation of , Left against medical advice, Cellulitis of right breast Patient Disposition: Left Against Medical Advice Instructions: Against Medical Advice (ED) Prescriptions: New cephalexin 500 mg capsule 500 mg PO Q6H 10 Days Qty: 40 RF: 0 No Action albuterol sulfate 90 mcg/actuation aerosol powdr breath activated 2 inh inhalation Q4-6H PRNRF: 0 Referrals: Rosa Maria Jang RN [Emergency Nurse] - 2 days (and your OBGYN) Print Language: Burkinan
--- NOTE | 2021-02-14 16:11 | PC.NURSE ---
pt to ultrasound priro to 2nd set blood cultures drawn.
[2021-02-14 16:15] LABS: INTERNATIONAL NORM RATIO 1.1 (0.9-1.1); Prothrombin Time 12.3 SEC (9.9-13.0)
[2021-02-14 16:22] LABS: COVID-19 Test Negative (Negative)
[2021-02-14 16:30] LABS: Glucose Urine UA NEG (NEG); Leukocyte Esterase Urine NEG (NEG); Nitrite Urine NEG (NEG); PH 6.5 (5.0-8.0); Specific Gravity - Urine 1.025 (1.005-1.025); UACC Culture Trigger NO; Urine Blood NEG (NEG); Urine Ketones 5 MG/DL (NEG); Urine Protein 1+ MG/DL (NEG-TRACE)
[2021-02-14 16:31] LABS: Lactic Acid 1.1 mmol/L (0.5-2.0)
[2021-02-14 16:36] LABS: Alanine Aminotransferase 6 U/L (0-31); Albumin Level 3.1 g/dL (3.5-5.0); Alkaline Phosphatase 137 U/L (39-117); Anion Gap 15 (12-20); Aspartate Amino Transferase 11 U/L (5-31); Bilirubin Total 0.2 mg/dL (0.0-1.0); Blood Urea Nitrogen 7 mg/dL (9-16); Calcium 8.7 mg/dL (8.4-10.2); Carbon Dioxide 19 mmol/L (22-29); Chloride 106 mmol/L (96-108); Creatinine Clr Calc Pharmacy 133.7; Estimated Glomerular Filt Rate > 60; Glucose Random 107 mg/dL (60-115); Magnesium 1.8 mg/dL (1.6-2.6); Potassium 3.9 mmol/L (3.3-5.1); Sodium 136 mmol/L (135-145); Total Protein 6.5 g/dL (6.5-8.0)
[2021-02-14 16:41] VITALS: BP 109/67; PULSE 95
[2021-02-14 16:42] VITALS: BP 103/64; PULSE 105
[2021-02-14 16:42] LABS: Appearance Urine HAZY; Color Urine YELLOW; HCG Quantitative 2767 mIU/mL
[2021-02-14 16:43] VITALS: BP 119/69; PULSE 102
[2021-02-14 16:44] VITALS: BP 103/64; PULSE 105; RESP 18; O2SAT 97
--- NOTE | 2021-02-14 16:54 | PM.OBCN ---
OB Consult Note - HPI Data Service Date: 02/14/21 Primary Care Provider: Maribel Avendaño MD Narrative I was contacted by Whitney Rivera at 16:52 regarding Lynsey Casas who is a 40 year old female who presented emergency room with multiple complaints including decreased movement breast abscess and dizziness. 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 - Review of Systems Review of Systems ROS Unobtainable: All systems reviewed & are unremarkable except as noted in HPI and below OB PMFSH Past Medical History Medical History Asthma Bronchitis Cigarette smoker Gestational diabetes Morbid obesity with body mass index (BMI) of 50.0 to 59.9 in adult Tuberculosis Family History Family History Mother Diabetes mellitus Father Diabetes mellitus Sister Diabetes mellitus Surgical History Surgical History History of 2 sections Social History Social History Alcohol intake: never Cigarettes Per Day: 4 Advance Directives: No Advance Directives Information Provided: Yes Patient : Yes Meds Allergies Allergy/AdvReac Type Severity Reaction Status Date / Time No Known Allergies Allergy Verified 11/08/20 10:36 Home Medications Medication Instructions Recorded Confirmed Last Taken Type albuterol sulfate 90 mcg/actuation 2 inh INHALATION Q4-6H PRN 09/09/20 Unknown History breath activated powder inhaler OB Flowsheet OB Flowsheet & Tools History 4 Elective abortions 0 Para 2 Spontaneous abortions 1 Hx # Term Pregnancies 2 Ectopic pregnancies 0 Hx # Pregnancies 0 Multiple births 0 OB Consult Results Labs CBC & Chem 7: 02/14/21 15:56 02/14/21 15:56 Labs: Short CBC 02/14/21 Range/Units 15:56 WBC 10.4 (4.8-10.8) X10*3/uL Hgb 10.9 L (12.0-16.0) g/dl Hct 32.9 L (37-47) % Plt Count 322 (160-400) X10*3/uL BMP 02/14/21 15:56 Sodium 136 Potassium 3.9 Chloride 106 Carbon Dioxide 19 L BUN 7 L Creatinine 0.64 Calcium 8.7 Liver Function 02/14/21 Range/Units 15:56 Total Bilirubin 0.2 (0.0-1.0) mg/dL AST 11 D (5-31) U/L ALT 6 (0-31) U/L Alkaline Phosphatase 137 H D (39-117) U/L Albumin 3.1 L (3.5-5.0) g/dL Urine 02/14/21 Range/Units 15:56 Urine Color YELLOW Urine Appearance HAZY Urine pH 6.5 (5.0-8.0) Ur Specific [place] 1.025 (1.005-1.025) Urine Protein 1+ H (NEG-TRACE) MG/DL Urine Glucose (UA) NEG (NEG) MG/DL OB - CN: A/P Assessment and Plan (1) Decreased movement: Status: Acute Assessment and Plan: Recommended transfer to [facility] for NST and heart rate monitoring. I was contacted on the phone regarding this patient, and did not take history nor examined her (2) Breast abscess: Status: Acute Assessment and Plan: Other complaint are to be evaluated after NSTs reactive and heart rate is reassured (3) Dizziness: Status: Acute Assessment and Plan: Other complaint are to be evaluated after NSTs reactive and heart rate is reassured
[2021-02-14 17:11] LABS: Bacteria Urine 2+ /LPF; RBC Urine 0 /HPF (0); Squamous Epithelial Cell Urine 3+ /LPF; WBC Urine 0-2 /HPF (0-4)
[2021-02-14] MEDS: Piperacillin Sodium/Tazobactam 3.375 GM in 0.9 % Sodium Chloride 50 ML IV (17:16)
--- NOTE | 2021-02-14 17:34 | PC.NURSE ---
PT BECOMING INCREASINGLY RESISTANT TO CARE. PT REFUSES TRANSFER TO [facility] I AIN'T STAYING THERE . ADVISED BY PA OF RISKS ASSOCIATED WITH LEAVING AMA, PT REMAINED STRONGLY OPPOSED. REFUSING IVF, CONVINCED TO ACCEPT IV ABX.
--- NOTE | 2021-02-14 18:09 | PC.NURSE ---
PT AGREEABLE TO SINGLE DOSE IV ABX. DISCHARGED AMA WITH RISKS OF SPREAD OF INFECTION AND HARM TO FETUS WITH REFUSAL TO TRANSFER TO [facility]. ENCOURAGED TO SEEK MEDICAL CARE WITH WORSENING SXS. ALL QUESTIONS ANSWERED.
== END 2021-02-14 18:12 | disposition left against medical advice (07) ==
PROVIDERS: Physician Assistant Medical; Emergency Provider Internal Medicine; PCP Family Medicine
DX: O91.113 Abscess of breast associated with pregnancy, third trimester (principal); R42 Dizziness and giddiness; Z3A.31 31 weeks gestation of pregnancy; Z20.822 Contact with and (suspected) exposure to COVID-19; F17.210 Nicotine dependence, cigarettes, uncomplicated; Z71.6 Tobacco abuse counseling; Z79.899 Other long term (current) drug therapy
CPT/HCPCS: 36415; 76642; 76815; 80053; 81001; 83605; 83735; 84702; 85025; 85610; 87040; 87635; 96360; 99284; 99291; J2543

== ENCOUNTER 2021-05-07 19:20 | Emergency (ER) | payer MEDICAID, SELFPAY ==
[2021-05-07 20:35] VITALS: BP 117/74; PULSE 100; RESP 20; TEMP 36.6; O2SAT 98; BMI 35.8
[2021-05-07] MEDS: Clindamycin HCL 300 MG CAPSULE PO (22:14)
[2021-05-07] MEDS: Lidocaine HCl 1 % MPF 5 ML VIAL INFILTRATI (22:14)
--- NOTE | 2021-05-07 22:14 | ED.SKABFB ---
HPI - Skin/Abscess/Foreign Bdy General Chief complaint: Skin/Abscess/Foreign Body Stated complaint: cyst Time Seen by Provider: 05/07/21 21:00 Source: patient Mode of arrival: ambulatory Limitations: no limitations History of Present Illness HPI narrative: Patient history of recurrent abscesses notice small pimple which gradually increased in size on the right breast for last 3 days with surrounding erythema no fever no chills patient breast-feeding but unable to breast-feed for last 1 week Related Data Home Medications Medication Instructions Recorded Confirmed albuterol sulfate 90 mcg/actuation 2 inh INHALATION Q4-6H PRN 09/09/20 breath activated powder inhaler Previous Rx's Medication Instructions Recorded cephalexin 500 mg capsule 500 mg PO Q6H 10 Days #40 cap 02/14/21 clindamycin HCl 300 mg capsule 300 mg PO QID #40 cap 05/07/21 doxycycline hyclate 100 mg tablet 100 mg PO BID #20 tab 05/07/21 tramadol 50 mg tablet 50 mg PO Q6H PRN #20 tab 05/07/21 Allergies Allergy/AdvReac Type Severity Reaction Status Date / Time No Known Allergies Allergy Verified 05/07/21 20:42 Review of Systems Review of Systems: Yes all other systems are reviewed and are negative PMFSH Past Medical History Medical History Asthma Bronchitis Cigarette smoker Gestational diabetes Morbid obesity with body mass index (BMI) of 50.0 to 59.9 in adult Tuberculosis Surgical History History of 2 sections Family History Family History Mother Diabetes mellitus Father Diabetes mellitus Sister Diabetes mellitus Social History Social History Alcohol intake: never Cigarettes Per Day: 4 Advance Directives: No Advance Directives Information Provided: No Patient : No Physical Exam Vital Signs: Vital Signs: Last Vital Signs Temp 97.8 F 05/07/21 20:35 Pulse 100 05/07/21 20:35 Resp 20 05/07/21 20:35 BP 117/74 05/07/21 20:35 Pulse Ox 98 05/07/21 20:35 Body Mass Index 35.8 Const: General: no acute distress Chest: Chest/axillae images: 1. 3 x 3 cm abscess with surrounding cellulitis Resp: Effort & Inspection: normal respiratory effort Auscultation: clear to auscultation bilaterally Cardio: Palpation: normal PMI Rate: regular rate Rhythm: regular rhythm Heart sounds: S1 normal heart sound present and S2 normal heart sound present MDM - Skin/Abscess/Foreign Bdy MDM Narrative Medical decision making narrative: Patient had a large abscess of right breast I and D was done and packed Procedures Abscess I/D Site: face ([place]) Local Anesthetic: lidocaine 2% Amount of anesthesia used (mL): 5 Technique: incised with blade Amount of fluid expressed (mL): 10 Sent for culture/gram staining?: Yes Packing used?: iodoform Discharge Plan Discharge Clinical Impression: Abscess of breast Patient Disposition: Home, Self-Care Instructions: Abscess (ED) Additional Instructions: Local care as advised Packing removal in 2 days Antibiotics as prescribed Recheck of wound in 2 days in ER/PCP Follow-up with surgery Prescriptions: New doxycycline hyclate 100 mg tablet 100 mg PO BID Qty: 20 RF: 0 clindamycin HCl 300 mg capsule 300 mg PO QID Qty: 40 RF: 0 tramadol 50 mg tablet 50 mg PO Q6H PRN (Reason: pain) Qty: 20 RF: 0 No Action cephalexin 500 mg capsule 500 mg PO Q6H 10 Days Qty: 40 RF: 0 albuterol sulfate 90 mcg/actuation aerosol powdr breath activated 2 inh inhalation Q4-6H PRNRF: 0 Referrals: Darshan Mccarthy MD [Physician] - 3 days Interventions: ED Discharge Assessment Last Done: 05/07/21 22:38 Discharge Date/Time: 05/07/21 22:39
== END 2021-05-07 22:39 | disposition home or self-care (01) ==
PROVIDERS: Emergency Provider Internal Medicine; PCP Nurse Practitioner Pediatrics
DX: N61.1 Abscess of the breast and nipple (principal); F17.210 Nicotine dependence, cigarettes, uncomplicated; Z71.6 Tobacco abuse counseling; Z79.899 Other long term (current) drug therapy
CPT/HCPCS: 10060; 87071; 87205; 99284

== ENCOUNTER 2021-05-09 15:53 | Emergency (ER) | payer MEDICAID, SELFPAY ==
[2021-05-09 16:00] VITALS: BP 112/74; PULSE 92; RESP 16; TEMP 36.1; O2SAT 98; BMI 34.7
--- NOTE | 2021-05-09 16:28 | ED.WOUNDLAC ---
HPI - Wound/Laceration General Chief Complaint: Wound/Laceration Stated Complaint: Wound check Time Seen by Provider: 05/09/21 16:28 Source: patient Mode of arrival: ambulatory Limitations: no limitations History of Present Illness HPI narrative: Patient status post I&D for right abscess 2 days ago came here for packing removal taking doxycycline and clindamycin. Patient denies any fever had significant pus discharge plan to see surgery in next 1-2 days Onset (ago): day(s) Related Data Home Medications Medication Instructions Recorded Confirmed albuterol sulfate 90 mcg/actuation 2 inh INHALATION Q4-6H PRN 09/09/20 breath activated powder inhaler Previous Rx's Medication Instructions Recorded cephalexin 500 mg capsule 500 mg PO Q6H 10 Days #40 cap 02/14/21 clindamycin HCl 300 mg capsule 300 mg PO QID #40 cap 05/07/21 doxycycline hyclate 100 mg tablet 100 mg PO BID #20 tab 05/07/21 tramadol 50 mg tablet 50 mg PO Q6H PRN #20 tab 05/07/21 Allergies Allergy/AdvReac Type Severity Reaction Status Date / Time No Known Allergies Allergy Verified 05/09/21 16:00 Review of Systems Review of Systems: Yes all other systems are reviewed and are negative PMFSH Past Medical History Medical History Asthma Bronchitis Cigarette smoker Gestational diabetes Morbid obesity with body mass index (BMI) of 50.0 to 59.9 in adult Tuberculosis Surgical History History of 2 sections Family History Family History Mother Diabetes mellitus Father Diabetes mellitus Sister Diabetes mellitus Social History Social History Alcohol intake: never Cigarettes Per Day: 4 Advance Directives: No Advance Directives Information Provided: No Physical Exam Vital Signs: Vital Signs: Last Vital Signs Temp 97.0 F 05/09/21 16:00 Pulse 92 05/09/21 16:00 Resp 16 05/09/21 16:00 BP 112/74 05/09/21 16:00 Pulse Ox 98 05/09/21 16:00 Body Mass Index 34.7 Chest: Chest/axillae images: 1. Packing in place with surrounding erythema MDM - Wound/Laceration MDM Narrative Medical decision making narrative: Packing removed from right breast abscess patient advised to follow with surgeon as scheduled and take antibiotics as prescribed Discharge Plan Discharge Clinical Impression: Breast abscess Patient Disposition: Home, Self-Care Instructions: Abscess Follow-up (ED) Additional Instructions: Local care as advised See surgeon in 1-2 days as planned Continue antibiotics as prescribed Prescriptions: No Action cephalexin 500 mg capsule 500 mg PO Q6H 10 Days Qty: 40 RF: 0 doxycycline hyclate 100 mg tablet 100 mg PO BID Qty: 20 RF: 0 clindamycin HCl 300 mg capsule 300 mg PO QID Qty: 40 RF: 0 tramadol 50 mg tablet 50 mg PO Q6H PRN (Reason: pain) Qty: 20 RF: 0 albuterol sulfate 90 mcg/actuation aerosol powdr breath activated 2 inh inhalation Q4-6H PRNRF: 0 Referrals: Darshan Mccarthy MD [Physician] - 2 days Interventions: ED Discharge Assessment Last Done: 05/09/21 16:46 Discharge Date/Time: 05/09/21 16:47
== END 2021-05-09 16:47 | disposition home or self-care (01) ==
PROVIDERS: Emergency Provider Internal Medicine; PCP Nurse Practitioner Pediatrics
DX: Z48.00 Encounter for change or removal of nonsurgical wound dressing (principal); Z79.899 Other long term (current) drug therapy
CPT/HCPCS: 99283; 99284

== ENCOUNTER 2022-09-17 17:27 | Emergency (ER) | payer MEDICAID, SELFPAY ==
--- NOTE | ~2022-09-17 | XR_ITS ---
EXAMINATION: XR LUMBAR SPINE XR HIP, RIGHT CLINICAL INFORMATION: Pain following fall. COMPARISON: Lumbar spine and hip radiographs dated 08/21/2015. TECHNIQUE: AP, lateral, and coned-down views of the lumbar spine. AP view of the pelvis as well as AP and frog-leg lateral views of the right hip. FINDINGS: LUMBAR SPINE: Normal vertebral body alignment. The lumbar lordosis is maintained. No acute fracture or subluxation. No loss of vertebral body height. No loss of intervertebral disc height. Tiny anterior endplate osteophytes at L2-L3 and L3-L4, similar when compared to the prior examination. No concerning lytic or blastic osseous lesion. No abnormal soft tissue calcification. RIGHT HIP: No acute fracture or dislocation. Mild right hip joint space narrowing with tiny lateral acetabular marginal osteophytes, slightly more prominent when compared to the prior examination. No concerning lytic or blastic osseous lesion. No abnormal soft tissue calcification. XR/XR hip RT min 2V IMPRESSION: LUMBAR SPINE: No acute osseous abnormality. Minimal degenerative disc disease at L2-L3 and L3-L4, similar when compared to the prior examination. RIGHT HIP: No acute osseous abnormality. Mild right hip osteoarthritis, slightly more prominent when compared to the prior examination.
--- NOTE | ~2022-09-17 | XR_ITS ---
EXAMINATION: XR LUMBAR SPINE XR HIP, RIGHT CLINICAL INFORMATION: Pain following fall. COMPARISON: Lumbar spine and hip radiographs dated 08/21/2015. TECHNIQUE: AP, lateral, and coned-down views of the lumbar spine. AP view of the pelvis as well as AP and frog-leg lateral views of the right hip. FINDINGS: LUMBAR SPINE: Normal vertebral body alignment. The lumbar lordosis is maintained. No acute fracture or subluxation. No loss of vertebral body height. No loss of intervertebral disc height. Tiny anterior endplate osteophytes at L2-L3 and L3-L4, similar when compared to the prior examination. No concerning lytic or blastic osseous lesion. No abnormal soft tissue calcification. RIGHT HIP: No acute fracture or dislocation. Mild right hip joint space narrowing with tiny lateral acetabular marginal osteophytes, slightly more prominent when compared to the prior examination. No concerning lytic or blastic osseous lesion. No abnormal soft tissue calcification. XR/XR lumbar spine 2-3V IMPRESSION: LUMBAR SPINE: No acute osseous abnormality. Minimal degenerative disc disease at L2-L3 and L3-L4, similar when compared to the prior examination. RIGHT HIP: No acute osseous abnormality. Mild right hip osteoarthritis, slightly more prominent when compared to the prior examination.
--- NOTE | 2022-09-17 17:58 | ED_ITS ---
HPI - Back Pain/Injury General Chief Complaint: Back Pain/Injury <Francesca Caceres CNP - Last Filed: 09/17/22 18:02> Stated Complaint: lower back pain <Francesca Caceres CNP - Last Filed: 09/17/22 18:02> Time Seen by Provider: 09/17/22 18:55 <Francesca Caceres CNP - Last Filed: 09/17/22 18:02> History of Present Illness HPI Narrative: Patient complains of right-sided back pain radiating to the right leg for the past 3 days after a slip and fall which she twisted her back and then fell on her back at home, she fell from standing height and has no neck pain no headache did not lose consciousness has no extremity injuries or pains, denies any weakness, no difficulty ambulating no changes to bowel or bladder no incontinence no dysuria <CRISTY Ta - Last Filed: 09/17/22 19:21> Related Data Home Medications: Home Medications Medication Instructions Recorded Confirmed albuterol sulfate 90 mcg/actuation 2 inh inhalation Q4-6H PRN 09/09/20 breath activated powder inhaler Previous Rx's Medication Instructions Recorded cephalexin 500 mg capsule 500 mg PO Q6H 10 days #40 caps 02/14/21 clindamycin HCl 300 mg capsule 300 mg PO QID #40 caps 05/07/21 doxycycline hyclate 100 mg tablet 100 mg PO BID #20 tabs 05/07/21 tramadol 50 mg tablet 50 mg PO Q6H PRN pain #20 tabs 05/07/21 acetaminophen 500 mg capsule 1,000 mg PO Q8H PRN pain #30 caps 09/17/22 diazepam 5 mg tablet (Valium) 5 mg PO BID PRN muscle spasm #10 09/17/22 tabs ibuprofen 600 mg tablet 600 mg PO Q6H PRN pain #20 tabs 09/17/22 oxycodone 5 mg tablet 5 mg PO Q6H PRN pain #14 tabs 09/17/22 prednisone 20 mg tablet 60 mg PO DAILY 3 days #9 tabs 09/17/22 <Francesca Caceres CNP - Last Filed: 09/17/22 18:02> Allergies/Adverse Reactions: Allergies Allergy/AdvReac Type Severity Reaction Status Date / Time No Known Allergies Allergy Verified 09/17/22 18:03 <Francesca Caceres CNP - Last Filed: 09/17/22 18:02> [facility] Past Medical History Source: nursing notes reviewed <CRISTY Ta - Last Filed: 09/17/22 19:21> Medical History: Medical History Asthma Bronchitis Cigarette smoker Gestational diabetes Morbid obesity with body mass index (BMI) of 50.0 to 59.9 in adult Tuberculosis <Francesca Caceres CNP - Last Filed: 09/17/22 18:02> Surgical History: Surgical History History of 2 sections <Francesca Caceres CNP - Last Filed: 09/17/22 18:02> Family History Family History: Family History Mother Diabetes mellitus Father Diabetes mellitus Sister Diabetes mellitus <Francesca Caceres CNP - Last Filed: 09/17/22 18:02> Social History Social History: Social History Alcohol intake: never Cigarettes Per Day: 4 Advance Directives: No Advance Directives Information Provided: No <Francesca Caceres CNP - Last Filed: 09/17/22 18:02> Physical Exam Vital Signs: Vital Signs: Last Vital Signs Temp 97.8 F 09/17/22 18:00 Pulse 105 H 09/17/22 18:00 Resp 20 09/17/22 18:00 BP 118/74 09/17/22 18:00 Pulse Ox 95 09/17/22 18:00 O2 Del Method 09/17/22 18:00 BMI result Body Mass Index 40.2 <Francesca Caceres CNP - Last Filed: 09/17/22 18:02> Vital Signs: Last Vital Signs Temp 97.8 F 09/17/22 18:00 Pulse 105 H 09/17/22 18:00 Resp 20 09/17/22 18:00 BP 118/74 09/17/22 18:00 Pulse Ox 95 09/17/22 18:00 O2 Del Method 09/17/22 18:00 BMI result Body Mass Index 40.2 <CRISTY Ta - Last Filed: 09/17/22 19:21> General appearance uncomfortable but no distress Head is normocephalic atraumatic Neck is supple nontender Respiratory no distress Chest clear to auscultation bilateral no chest wall tenderness Abdomen soft nontender The back had right lower lumbar soft tissue tenderness, there was no focal bony tenderness, skin of the back was normal Extremities full range of motion x4 Neuro gait and balance are normal, motor is 5/5 x4 and sensation is intact and symmetrical <CRISTY Ta - Last Filed: 09/17/22 19:21> Course Course Course Narrative: This is an RME: Additional HPI, ROS, PE not included below will be deferred to primary provider. Patient is a 42-year-old female who presents to the emergency department for evaluation of back pain. onset 3 days ago, after a mechanical fall, landing on her right side. Denies any head strike or loss of consciousness. Pain is present to the right lower back and right hip and extends all the way down the leg. Has associated numbness intermittently. She has trialed Tylenol, ibuprofen, Flexeril without any significant improvement. She has the Flexeril due to chronic lumbar radiculopathy. Denies any bladder bowel dysfunction. <Francesca Caceres CNP - Last Filed: 09/17/22 18:02> This is an RME: Additional HPI, ROS, PE not included below will be deferred to primary provider. Patient is a 42-year-old female who presents to the emergency department for evaluation of back pain. onset 3 days ago, after a mechanical fall, landing on her right side. Denies any head strike or loss of c onsciousness. Pain is present to the right lower back and right hip and extends all the way down the leg. Has associated numbness intermittently. She has trialed Tylenol, ibuprofen, Flexeril without any significant improvement. She has the Flexeril due to chronic lumbar radiculopathy. Denies any bladder bowel dysfunction. Patient with right-sided sciatica, x-ray negative for fracture of the the right hip or lumbar spine, is treated with prednisone which may reduce inflammation around the nerve and analgesics She is neuro vascular intact, able to ambulate and is discharged from the ER to follow with her doctor <CRISTY Ta - Last Filed: 09/17/22 19:21> Discharge Plan Discharge Clinical Impression: Sciatica <Francesca Caceres CNP - Last Filed: 09/17/22 18:02> Patient Disposition: Home, Self-Care <Francesca Caceres CNP - Last Filed: 09/17/22 18:02> Additional Instructions: X-rays of your hip and back showed arthritis but no broken bones Your exam is consistent with strained muscles and pinched nerve on the right side shooting pain down her leg We are trying prednisone which sometimes reduce is inflammation around the nerve You said Valium is sometimes more helpful than Flexeril for muscle relaxer so I wrote for a few Valiums You can use oxycodone if needed for severe pain, otherwise the Tylenol and Motrin you have at home Follow with primary doctor for further evaluation if pain continues Return any time for weakness incontinence any worse condition or any concerns <Francesca Caceres CNP - Last Filed: 09/17/22 18:02> Prescriptions: New oxycodone 5 mg tablet 5 mg PO Q6H PRN (Reason: pain) Qty: 14 0RF Rx Instructions: Partial Fill upon patient request. diazepam [Valium] 5 mg tablet 5 mg PO BID PRN (Reason: muscle spasm) Qty: 10 0RF prednisone 20 mg tablet 60 mg PO DAILY 3 Days Qty: 9 0RF ibuprofen 600 mg tablet 600 mg PO Q6H PRN (Reason: pain) Qty: 20 0RF acetaminophen 500 mg capsule 1,000 mg PO Q8H PRN (Reason: pain) Qty: 30 0RF No Action cephalexin 500 mg capsule 500 mg PO Q6H 10 Days Qty: 40 0RF doxycycline hyclate 100 mg tablet 100 mg PO BID Qty: 20 0RF clindamycin HCl 300 mg capsule 300 mg PO QID Qty: 40 0RF tramadol 50 mg tablet 50 mg PO Q6H PRN (Reason: pain) Qty: 20 0RF albuterol sulfate 90 mcg/actuation aerosol powdr breath activated 2 inh inhalation Q4-6H PRN <Francesca Caceres CNP - Last Filed: 09/17/22 18:02>
[2022-09-17 18:00] VITALS: BP 118/74; PULSE 105; RESP 20; TEMP 36.6; O2SAT 95; BMI 40.2
[2022-09-17] MEDS: NaPROXEN 500 MG TABLET PO (19:29)
[2022-09-17] MEDS: predniSONE 20 MG TABLET 60 MG PO (19:29)
[2022-09-17] MEDS: Acetaminophen 325 MG TABLET 975 MG PO (19:30)
== END 2022-09-17 19:31 | disposition home or self-care (01) ==
PROVIDERS: Emergency Provider Emergency Medicine Emergency Medical Services
DX: M54.41 Lumbago with sciatica, right side (principal); F17.210 Nicotine dependence, cigarettes, uncomplicated; E66.01 Morbid (severe) obesity due to excess calories; Z68.41 Body mass index [BMI] 40.0-44.9, adult
CPT/HCPCS: 72100; 73502; 99283

== ENCOUNTER → 2022-09-19 12:59 | Outpatient (BNVA) | payer MEDICAID, SELFPAY | PROVIDERS: Visit Provider Nurse Practitioner Family | DX: M47.816 Spondylosis without myelopathy or radiculopathy, lumbar region (principal); M25.561 Pain in right knee; M54.16 Radiculopathy, lumbar region; E66.01 Morbid (severe) obesity due to excess calories; Z68.43 Body mass index [BMI] 50.0-59.9, adult | CPT/HCPCS: 99202 ==

== ENCOUNTER 2022-10-06 21:57 | Emergency (ER) | payer MEDICAID, SELFPAY ==
[2022-10-06 22:15] VITALS: BP 125/76; PULSE 105; RESP 20; TEMP 35.8; O2SAT 94; BMI 39.9
[2022-10-06 22:48] LABS: Appearance Urine Turbid; Color Urine RED; Glucose Urine UA Negative (Negative); Leukocyte Esterase Urine Trace (Negative); Nitrite Urine Negative (Negative); Specific Gravity - Urine >= 1.030 (1.005-1.025); UMIC TRIGGER UACC YES; Urine Blood Large (3+) (Negative); Urine Ketones Negative (Negative); Urine Protein 100 (2+) mg/dL (Neg-Trace)
[2022-10-06 22:49] LABS: UACC Culture Trigger YES; WBC Urine 21-50 /HPF (0-5)
[2022-10-06 22:50] LABS: Bacteria Urine 1+ (None Seen); Hyaline Casts Urine 0-2 /LPF (0-2); RBC Urine >20 /HPF (0-2); Squamous Epithelial Cell Urine 0-2 /HPF (0-2); WBC Clumps Urine Present
[2022-10-06 22:51] LABS: UPreg QC Valid YES; Urine Pregnancy NEGATIVE (NEGATIVE)
[2022-10-06 22:53] LABS: Basophils Absolute Auto 0.1 X10*3/uL (0.0-0.2); Basophils Percent Auto 0.6 % (0-2); Eosinophils Absolute Auto 0.2 X10*3/uL (0.0-0.4); Eosinophils Percent Auto 1.7 % (0-4); Hematocrit 38.6 % (37.0-47.0); Hemoglobin 12.4 g/dl (12.0-16.0); Imm Gran Abs Auto 0.04 X10*3/uL (0.00-0.03); Imm Gran Pct Auto 0.4 % (0.0-0.4); Lymphocytes Absolute Auto 2.1 X10*3/uL (1.2-4.9); Lymphocytes Percent Auto 20.6 % (20-40); MANUAL DIFF FLAG NO; Mean Corpuscular HGB Conc 32.1 g/dl (31.0-35.0); Mean Corpuscular Hemoglobin 27.8 pg (27.0-33.0); Mean Corpuscular Volume 86.5 fL (80.0-98.0); Mean Platelet Volume 9.4 fL (9.4-12.3); Monocytes Absolute Auto 0.5 X10*3/uL (0.1-1.2); Neutrophils Absolute Auto 7.4 x10*3/uL (2.0-8.3); Neutrophils Percent Auto 71.7 % (45-73); Platelet Count 330 X10*3/uL (160-400); Red Blood Count 4.46 X10*6/uL (4.20-5.50); Red Cell Distribution Width 13.2 % (11.0-16.0); White Blood Count 10.3 X10*3/uL (4.8-10.8)
[2022-10-06 23:03] LABS: Prothrombin Time 10.9 SEC (10.0-13.1)
[2022-10-06 23:07] LABS: Anion Gap 14 (12-20); Blood Urea Nitrogen 16 mg/dL (9-16); Calcium 8.6 mg/dL (8.4-10.2); Carbon Dioxide 21 mmol/L (22-29); Chloride 109 mmol/L (96-108); Creatinine Clr Calc Pharmacy 105.7; Estimated Glomerular Filt Rate > 60; Glucose Random 135 mg/dL (60-115); Potassium 3.9 mmol/L (3.3-5.1); Sodium 140 mmol/L (135-145)
--- NOTE | 2022-10-07 | ED_ITS ---
HPI - General Adult General Chief complaint: Vaginal Bleeding Stated complaint: lower back and abd pain Time Seen by Provider: 10/06/22 23:44 Source: patient and family Mode of arrival: ambulatory Limitations: no limitations History of Present Illness HPI narrative: A 42-year-old female presented with lower abdominal pain and vaginal bleeding. Patient's symptoms started since early today had to change multiple pads for the heavy vaginal bleeding, patient been feeling cramps and contractions pain in the lower abdomen that radiates to the right groin/right flank area. Frequent urination, dysuria is also present. No nausea, no vomiting, no diarrhea. Related Data Home Medications Medication Instructions Recorded Confirmed albuterol sulfate 90 mcg/actuation 2 inh inhalation Q4-6H PRN 09/09/20 breath activated powder inhaler fluticasone propionate 50 1 - 2 spray intranasal DAILY PRN 09/19/22 mcg/actuation nasal spray,suspension naloxone 4 mg/actuation nasal spray intranasal 09/19/22 nicotine (polacrilex) 2 mg buccal 2 mg PO Q2H PRN 09/19/22 lozenge nicotine (polacrilex) 4 mg buccal 4 mg PO Q2H PRN 09/19/22 lozenge Previous Rx's Medication Instructions Recorded cephalexin 500 mg capsule 500 mg PO Q6H 10 days #40 caps 02/14/21 doxycycline hyclate 100 mg tablet 100 mg PO BID #20 tabs 05/07/21 acetaminophen 500 mg capsule 1,000 mg PO Q8H PRN pain #30 caps 09/17/22 diazepam 5 mg tablet (Valium) 5 mg PO BID PRN muscle spasm #10 09/17/22 tabs ibuprofen 600 mg tablet 600 mg PO Q6H PRN pain #20 tabs 09/17/22 oxycodone 5 mg tablet 5 mg PO Q6H PRN pain #14 tabs 09/17/22 prednisone 20 mg tablet 60 mg PO DAILY 3 days #9 tabs 09/17/22 cane #1 ea 09/19/22 lidocaine 5 % topical patch 2 patch topical DAILY pain 30 days 09/19/22 #30 ea walker #1 ea 09/19/22 cefuroxime axetil 500 mg tablet 500 mg PO BID #14 tabs 10/07/22 Allergies Allergy/AdvReac Type Severity Reaction Status Date / Time No Known Allergies Allergy Verified 10/06/22 22:20 Review of Systems Review of Systems: All other systems are reviewed and are negative Constitutional: Reports as per HPI and Reports no additional constitutional complaints Eyes: Reports as per HPI and Reports no additional eye complaints Reports system reviewed and no additional complaints, except as documented Cardiovascular: Reports as per HPI and Reports no additional cardiovascular complaints Respiratory: Reports as per HPI and Reports no additional respiratory complaints Gastrointestinal: Reports as per HPI and Reports no additional gastrointestinal complaints Genitourinary: Reports no additional female genitourinary complaints Musculoskeletal: Reports no additional musculoskeletal complaints Skin/Breast: Reports system reviewed and no additional complaints, except as docu Psychiatric: Reports no additional psychiatric complaints Endocrine: Reports no additional endocrine complaints Hematologic/Lymphatic: Reports no additional hematologic/lymphatic complaints Allergic/Immunologic: Reports no additional allergic/immunologic complaints Reports system reviewed and no additional complaints, except as documented and Reports Abnormal speech present [facility] Past Medical History Medical History Asthma Bipolar disorder Bronchitis Chronic low back pain Cigarette smoker Gestational diabetes Hidradenitis suppurativa Morbid obesity with body mass index (BMI) of 50.0 to 59.9 in adult Tuberculosis Surgical History History of 2 sections Family History Family History Mother Diabetes mellitus Father Diabetes mellitus Sister Diabetes mellitus Social History Social History Alcohol intake: never Cigarettes Per Day: 4 Advance Directives: No Physical Exam ED Vital Signs: Vital Signs - 24 hr 10/06/22 22:15 Temperature 96.5 F L Pulse Rate 105 H Respiratory Rate 20 Blood Pressure 125/76 Pulse Oximetry 94 Oxygen Delivery Method Room Air BMI result Body Mass Index 39.9 Vital signs have been reviewed as appeared to be correct. Blood pressure nor mal. Heart rate normal. Respiration rate normal. Temperature normal. Oxygen saturation normal. Appearance: Alert. Oriented X3. No acute distress. Head: Normal external exam. Normocephalic. Atraumatic. No Ross signs noted. No raccoon eyes noted Eyes: PERRLA. EOMI. Conjunctiva and sclera normal. Eyelids normal. ENT: TM's Normal. Pharynx normal. Uvula midline. Moist mucous membranes. No trismus noted. No drooling noted. No muffled voice noted. Neck: Normal inspection. Neck supple. FROM. No adenopathy. Thyroid Normal. No meningeal signs. No neck mass noted. CVS: Normal heart rate and rhythm. Heart sound normal. No murmurs noted. Pulses normal throughout. Respiratory: No respiratory distress. Painless inspiration. Breath sounds normal. No wheezes/rales/rhonchi noted. Chest nontender. No accessory muscle usage noted or decreased air movement noted. Abdomen: Soft and nontender. Bowel sounds normal in all 4 quadrants. No distention noted. No organomegaly noted. No visible injury noted. Pelvic exam: Patient refused pelvic exam. Back: No CVA tenderness. Full range of motion noted. Skin: Skin warm and dry. Normal skin color. Normal skin turgor. No rashes/lesions/lacerations noted. Extremities: No lower extremity edema. Extremities exhibit normal range of motion. Extremities nontender. Neuro: Oriented X 3. Cranial nerve exam: II-XII are grossly intact No motor deficit. No sensory deficit. Reflexes normal. Course Course Course Narrative: 42-year-old female came in with lower abdominal pain and vaginal bleeding, patient is refusing pelvic exam for complete evaluation of the presentation I explained to the patient that I am the only provider available to do the pelvic exam and I will be using a female global clinical leader in the room, VSS, patient fully understand that it is important to do the pelvic exam in order to complete the workup she still refuse patient understand the risk of signing out against medical advise and still would leave against medical advice. UTI in the urine will start the patient on antibiotic and drink plenty of fluids. Medical Decision Making Differential Diagnosis Differential Diagnoses: The differential diagnosis associated with the presentation includes (Abdominal pain, vaginal bleeding, appendicitis, colitis, pyelonephritis, UTI.) Lab Data MDM Lab Attestation statement: I reviewed the patient's lab results. 10/06/22 22:46 10/06/22 22:46 Labs: Lab Results 10/06/22 10/06/22 10/06/22 Range/Units 22:34 22:34 22:46 WBC 10.3 (4.8-10.8) X10*3/uL RBC 4.46 (4.20-5.50) X10*6/uL Hgb 12.4 (12.0-16.0) g/dl Hct 38.6 (37.0-47.0) % MCV 86.5 (80.0-98.0) fL MCH 27.8 (27.0-33.0) pg MCHC 32.1 (31.0-35.0) g/dl RDW 13.2 (11.0-16.0) % Plt Count 330 (160-400) X10*3/uL MPV 9.4 (9.4-12.3) fL Immature Gran % (Auto) 0.4 (0.0-0.4) % Neut % (Auto) 71.7 (45-73) % Lymph % (Auto) 20.6 (20-40) % Davis % (Auto) 5.0 (2-11) % Eos % (Auto) 1.7 (0-4) % Baso % (Auto) 0.6 (0-2) % Lymph # (Auto) 2.1 (1.2-4.9) X10*3/uL Davis # (Auto) 0.5 (0.1-1.2) X10*3/uL Eos # (Auto) 0.2 (0.0-0.4) X10*3/uL Baso # (Auto) 0.1 (0.0-0.2) X10*3/uL Abs Immat Gran (auto) 0.04 H (0.00-0.03) X10*3/uL Absolute Neuts (auto) 7.4 (2.0-8.3) x10*3/uL Absolute Nucleated RBC 0.000 (0.0-0.012) X10*3/uL Nucleated RBC % (auto) 0.0 (0.0-0.2) /100WBC PT (10.0-13.1) SEC INR (0.9-1.1) Sodium (135-145) mmol/L Potassium (3.3-5.1) mmol/L Chloride (96-108) mmol/L Carbon Dioxide (22-29) mmol/L Anion Gap (12-20) BUN (9-16) mg/dL Creatinine (0.5-1.4) mg/dL Estim Creat Clear Calc Estimated GFR Random Glucose (60-115) mg/dL Calcium (8.4-10.2) mg/dL Urine Color RED Urine Appearance Turbid Urine pH 6.0 (5.0-9.0) Ur Specific [place] >= 1.030 H (1.005-1.025) Urine Protein 100 (2+) H (Neg-Trace) mg/dL Urine Glucose (UA) Negative (Negative) mg/dL Urine Ketones Negative (Negative) mg/dL Urine Blood Large (3+) H (Negative) Urine Nitrite Negative (Negative) Ur Leukocyte Esterase Trace H (Negative) Urine RBC >20 H (0-2) /HPF Urine WBC 21-50 H (0-5) /HPF Urine WBC Clumps Present Ur Squamous Epith Cells 0-2 (0-2) /HPF Urine Bacteria 1+ (None Seen) Hyaline Casts 0-2 (0-2) /LPF Urine Test NEGATIVE (NEGATIVE) Blood Type Antibody Screen 10/06/22 10/06/22 10/06/22 Range/Units 22:46 22:46 22:46 WBC (4.8-10.8) X10*3/uL RBC (4.20-5.50) X10*6/uL Hgb (12.0-16.0) g/dl Hct (37.0-47.0) % MCV (80.0-98.0) fL MCH (27.0-33.0) pg MCHC (31.0-35.0) g/dl RDW (11.0-16.0) % Plt Count (160-400) X10*3/uL MPV (9.4-12.3) fL Immature Gran % (Auto) (0.0-0.4) % Neut % (Auto) (45-73) % Lymph % (Auto) (20-40) % Davis % (Auto) (2-11) % Eos % (Auto) (0-4) % Baso % (Auto) (0-2) % Lymph # (Auto) (1.2-4.9) X10*3/uL Davis # (Auto) (0.1-1.2) X10*3/uL Eos # (Auto) (0.0-0.4) X10*3/uL Baso # (Auto) (0.0-0.2) X10*3/uL Abs Immat Gran (auto) (0.00-0.03) X10*3/uL Absolute Neuts (auto) (2.0-8.3) x10*3/uL Absolute Nucleated RBC (0.0-0.012) X10*3/uL Nucleated RBC % (auto) (0.0-0.2) /100WBC PT 10.9 (10.0-13.1) SEC INR 1.0 (0.9-1.1) Sodium 140 (135-145) mmol/L Potassium 3.9 (3.3-5.1) mmol/L Chloride 109 H (96-108) mmol/L Carbon Dioxide 21 L (22-29) mmol/L Anion Gap 14 (12-20) BUN 16 (9-16) mg/dL Creatinine 0.77 (0.5-1.4) mg/dL Estim Creat Clear Calc 105.7 Estimated GFR > 60 Random Glucose 135 H (60-115) mg/dL Calcium 8.6 (8.4-10.2) mg/dL Urine Color Urine Appearance Urine pH (5.0-9.0) Ur Specific [place] (1.005-1.025) Urine Protein (Neg-Trace) mg/dL Urine Glucose (UA) (Negative) mg/dL Urine Ketones (Negative) mg/dL Urine Blood (Negative) Urine Nitrite (Negative) Ur Leukocyte Esterase (Negative) Urine RBC (0-2) /HPF Urine WBC (0-5) /HPF Urine WBC Clumps Ur Squamous Epith Cells (0-2) /HPF Urine Bacteria (None Seen) Hyaline Casts (0-2) /LPF Urine Test (NEGATIVE) Blood Type A Positive Antibody Screen NEGATIVE Discharge Plan Discharge Clinical Impression: Abdominal pain, Vaginal bleeding, UTI (urinary tract infection) Patient Disposition: Left Against Medical Advice Instructions: Urinary Tract Infection in Women (DC), Abdominal Pain (ED) Prescriptions: New cefuroxime axetil 500 mg tablet 500 mg PO BID Qty: 14 0RF No Action cephalexin 500 mg capsule 500 mg PO Q6H 10 Days Qty: 40 0RF doxycycline hyclate 100 mg tablet 100 mg PO BID Qty: 20 0RF oxycodone 5 mg tablet 5 mg PO Q6H PRN (Reason: pain) Qty: 14 0RF Rx Instructions: Partial Fill upon patient request. diazepam [Valium] 5 mg tablet 5 mg PO BID PRN (Reason: muscle spasm) Qty: 10 0RF prednisone 20 mg tablet 60 mg PO DAILY 3 Days Qty: 9 0RF ibuprofen 600 mg tablet 600 mg PO Q6H PRN (Reason: pain) Qty: 20 0RF acetaminophen 500 mg capsule 1,000 mg PO Q8H PRN (Reason: pain) Qty: 30 0RF albuterol sulfate 90 mcg/actuation aerosol powdr breath activated 2 inh inhalation Q4-6H PRN naloxone 4 mg/actuation spray,non-aerosol intranasal nicotine (polacrilex) 2 mg lozenge 2 mg PO Q2H PRN nicotine (polacrilex) 4 mg lozenge 4 mg PO Q2H PRN fluticasone propionate 50 mcg/actuation spray,suspension 1 - 2 spray intranasal DAILY PRN lidocaine 5 % adhesive patch,medicated 2 patch topical DAILY 30 Days Qty: 30 1RF (DME) cane Device See Rx Instructions .Route Qty: 1 0RF Rx Instructions: As directed (DME) [facility] [place] .Route Qty: 1 0RF Rx Instructions: As directed Referrals: Sang Wang MD [Physician] - Stand Alone Forms: Against Medical Advice
--- NOTE | 2022-10-07 00:24 | PC.NURSE ---
patient upset at time of discharge. patient declining pelvic examination because the doctor is male. patient requesting female doctor to do the pelvic examination. patient informed that there are no female providers on and able to do the exam for her at this time. 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 instructed to either return back during the day shift when there are more providers on in hopes of getting a female doctor to do examination, or follow up with pcp for further evaluation of symptoms, also provided with contact information for obgyn here at [facility] [place]. patient leaving AMA, declining pelvic examination by MD Krause. reassured lab work within normal limits, no cause for concern at this time per MD Krause. urinalysis showing slight urinary infection. antibiotics prescribed and sent over to patient preferred pharmacy. patient signed AMA form and discharge papers. instructed to complete full course of antibiotics for UTI. no further questions, no apparent distress at time of discharge, ambulatory with steady gait out of treatment room.
== END 2022-10-07 00:28 | disposition left against medical advice (07) ==
PROVIDERS: Emergency Provider Emergency Medicine
DX: N93.9 Abnormal uterine and vaginal bleeding, unspecified (principal); N39.0 Urinary tract infection, site not specified; R10.30 Lower abdominal pain, unspecified; E66.9 Obesity, unspecified; Z68.39 Body mass index [BMI] 39.0-39.9, adult
CPT/HCPCS: 36415; 80048; 81001; 81025; 85025; 85610; 86850; 86900; 86901; 87086; 99282; 99283

== ENCOUNTER 2023-02-20 14:05 | Emergency (ER) | payer MEDICAID, SELFPAY ==
--- NOTE | 2023-02-20 14:10 | ED.GENADULT ---
HPI - General Adult General Chief complaint: General Medical Stated complaint: Vomiting/R flank pain Time Seen by Provider: 02/20/23 15:13 Source: patient Mode of arrival: EMS Limitations: no limitations History of Present Illness HPI narrative: Patient comes to the emergency room complaining of lumbar pain radiating towards the right leg. Patient states it started 3 days ago, patient denies any fall or heavy lifting, no obvious injuries. Patient has tried Flexeril, Tylenol, Motrin without relief. Patient denies lower extremity weakness, no urinary/fecal incontinence/retention. Related Data Home Medications Medication Instructions Recorded Confirmed albuterol sulfate 90 mcg/actuation 2 inh inhalation Q4-6H PRN 09/09/20 breath activated powder inhaler fluticasone propionate 50 1 - 2 spray intranasal DAILY PRN 09/19/22 mcg/actuation nasal spray,suspension naloxone 4 mg/actuation nasal spray intranasal 09/19/22 nicotine (polacrilex) 2 mg buccal 2 mg PO Q2H PRN 09/19/22 lozenge nicotine (polacrilex) 4 mg buccal 4 mg PO Q2H PRN 09/19/22 lozenge Previous Rx's Medication Instructions Recorded cephalexin 500 mg capsule 500 mg PO Q6H 10 days #40 caps 02/14/21 doxycycline hyclate 100 mg tablet 100 mg PO BID #20 tabs 05/07/21 acetaminophen 500 mg capsule 1,000 mg PO Q8H PRN pain #30 caps 09/17/22 diazepam 5 mg tablet (Valium) 5 mg PO BID PRN muscle spasm #10 09/17/22 tabs ibuprofen 600 mg tablet 600 mg PO Q6H PRN pain #20 tabs 09/17/22 oxycodone 5 mg tablet 5 mg PO Q6H PRN pain #14 tabs 09/17/22 prednisone 20 mg tablet 60 mg PO DAILY 3 days #9 tabs 09/17/22 cane #1 ea 09/19/22 lidocaine 5 % topical patch 2 patch topical DAILY pain 30 days 09/19/22 #30 ea walker #1 ea 09/19/22 cefuroxime axetil 500 mg tablet 500 mg PO BID #14 tabs 10/07/22 Allergies Allergy/AdvReac Type Severity Reaction Status Date / Time No Known Allergies Allergy Verified 02/20/23 14:18 Review of Systems Review of Systems: Constitutional : No Weight loss, No Fever, No Chills, No Night Sweats, No Fatigue, No Malaise ENT/Mouth : No Hearing loss, No Ear Pain, No Nasal Congestion, No Sinus Pain, No Hoarseness, No sore throat, No Rhinorrhea, No Swallowing Difficulty Eyes: No Eye Pain, No Swelling, No Redness, No Foreign Body, No Discharge, No Vision Changes Cardiovascular : No Chest Pain, No SOB, No Dyspnea on Exertion, No Orthopnea, No Edema, No Palpitations Respiratory : No Cough, No Sputum, No Wheezing, No Smoke Exposure, No Dyspnea Gastrointestinal : Patient complaining of nausea and vomiting, No Diarrhea, No Constipation, No abdominal Pain, No Hematochezia, No Melena Genitourinary : no irregular bleeding, No Dysuria, No Urinary Frequency, No Hematuria, No Urinary Incontinence, No Urgency, No Flank Pain, No Urinary Flow Changes, No Hesitancy Musculoskeletal : Complaining of lower back pain radiating towards the right leg with certain movements, No joint pain, No Myalgias, No Joint Swelling Skin : No Skin Lesions, No rash Neuro : No Weakness, No Numbness, No Paresthesias, No Loss of Consciousness, No Dizziness, No Headache Psych : No Anxiety/Panic, No Depression, No SI/HI/AH/VH, No Social Issues, Heme/Lymph: No Bruising, No Bleeding,No Lymphadenopathy Endocrine : No Polyuria, No Polydipsia, No Temperature Intolerance [facility] Past Medical History Medical History Asthma Bipolar disorder Bronchitis Chronic low back pain Cigarette smoker Gestational diabetes Hidradenitis suppurativa Morbid obesity with body mass index (BMI) of 50.0 to 59.9 in adult Tuberculosis Surgical History History of 2 sections Family History Family History Mother Diabetes mellitus Father Diabetes mellitus Sister Diabetes mellitus Social History Social History Alcohol intake: never Cigarettes Per Day: 4 Smoked in Last 30 Days: No Use of substances other than those prescribed or required for medical reasons: No Advance Directives: No Advance Directives Information Provided: No Patient : No Physical Exam ED Vital Signs: Vital Signs - 24 hr 02/20/23 14:16 02/20/23 15:32 Temperature 97.6 F 97.6 F Pulse Rate 98 84 Respiratory Rate 18 18 Blood Pressure 102/71 111/72 Pulse Oximetry 99 98 Oxygen Delivery Method Room Air Room Air BMI result Body Mass Index 37.6 Const Other: Appearance: Alert. Oriented X3. Seems uncomfortable Eyes: Pupils equal, round and reactive to light. ENT: Pharynx normal. Neck: Normal inspection. Neck supple. No lymph nodes noted. No crepitus CVS: Normal heart rate and rhythm. Pulses normal. Normal S1 and S2 Respiratory: No respiratory distress. Breath sounds normal. No Wheezing. No rales Abdomen: Soft and nontender. No rigidity. No distention. Skin: Skin warm and dry. Normal skin color. Normal skin turgor. Extremities: Patient complaining lower back pain radiating towards right leg, positive straight leg raise test No lower extremity edema. No Lacerations. No Rash. Patient ambulatory, normal strength in both lower extremities Neuro: Oriented X 3. No motor deficit. No sensory deficit. Moving all extremities. No slurred speech. CN 2 through 12 grossly intact Psych: calm, cooperative, normal affect Course Course Course Narrative: RME performed by Pamela Bradley PA-C. Patient is a 42 year old assigned female at presenting to the emergency department with nausea and vomiting. Labs and swabs ordered. Patient placed back in the waiting room pending room availability and results. Medications Administered Discontinued Medications Generic Name Dose Route Start Last Admin Trade Name Koryq PRN Reason Stop Dose Admin Ondansetron HCl 4 mg 02/20/23 14:11 02/20/23 14:19 Ondansetron Odt 4 Mg Tab.Rapdis TRANSLINGU 02/20/23 14:12 4 mg ONCE ONE Administration Medical Decision Making Medical Decision Making MDM Narrative: -my interpretation of labs: Normal white blood cell count, urinalysis positive for trace leukocyte esterase. I do not see any blood in the urine. Based on physical exam with a positive straight leg raise test, patient likely has sciatica versus herniated disc. -patient declined IM medication, patient was ordered a p.o. oxycodone. -a CT scan was ordered. Patient states that she does not want to wait because it is taking way too long. Also, pain medication has been ordered but patient's nurse has been unable to be in the room. It was explained to the patient that her nurses with a patient that is critically ill and will be a few minutes until she can get her medication. Patient stated she wanted to leave. I discussed with the patient that some of her labs especially the chemistry pending, CT scan pending. She would be leaving against medical advice. Patient said that was fine with her and she walked out. -cauda equina is not suspected. Patient ambulatory, normal strength bilaterally, denies urinary retention or incontinence Differential Diagnosis Differential Diagnoses: The differential diagnosis associated with the presentation includes (Renal colic, ureterolithiasis, sciatica, herniated disc) Lab Data MDM Lab Attestation statement: I reviewed the patient's lab results. 02/20/23 14:35 02/20/23 14:35 Labs: Lab Results 02/20/23 02/20/23 02/20/23 Range/Units 14:35 14:35 14:35 WBC 9.8 (4.8-10.8) X10*3/uL RBC 4.48 (4.20-5.50) X10*6/uL Hgb 12.7 (12.0-16.0) g/dl Hct 39.4 (37.0-47.0) % MCV 87.9 (80.0-98.0) fL MCH 28.3 (27.0-33.0) pg MCHC 32.2 (31.0-35.0) g/dl RDW 13.1 (11.0-16.0) % Plt Count 345 (160-400) X10*3/uL MPV 9.6 (9.4-12.3) fL Immature Gran % (Auto) 0.6 H (0.0-0.4) % Neut % (Auto) 75.8 H (45-73) % Lymph % (Auto) 17.5 L (20-40) % [place] % (Auto) 4.9 (2-11) % Eos % (Auto) 0.7 (0-4) % Baso % (Auto) 0.5 (0-2) % Lymph # (Auto) 1.7 (1.2-4.9) X10*3/uL [place] # (Auto) 0.5 (0.1-1.2) X10*3/uL Eos # (Auto) 0.1 (0.0-0.4) X10*3/uL Baso # (Auto) 0.1 (0.0-0.2) X10*3/uL Abs Immat Gran (auto) 0.06 H (0.00-0.03) X10*3/uL Absolute Neuts (auto) 7.4 (2.0-8.3) x10*3/uL Absolute Nucleated RBC 0.000 (0.0-0.012) X10*3/uL Nucleated RBC % (auto) 0.0 (0.0-0.2) /100WBC Sodium 135 (135-145) mmol/L Potassium 4.5 (3.3-5.1) mmol/L Chloride 102 (96-108) mmol/L Carbon Dioxide 24 (22-29) mmol/L Anion Gap 14 (12-20) BUN 12 (9-16) mg/dL Creatinine 0.70 (0.5-1.4) mg/dL Estim Creat Clear Calc 116.7 Estimated GFR > 60 Random Glucose 92 (60-115) mg/dL Calcium 9.2 D (8.4-10.2) mg/dL Magnesium 2.0 (1.6-2.6) mg/dL Total Bilirubin 0.2 (0.0-1.0) mg/dL AST 16 (5-31) U/L ALT 16 (0-31) U/L Alkaline Phosphatase 81 (39-117) U/L Troponin I High Sens < 2.7 (<3.5-17.0) ng/L Total Protein 7.7 (6.5-8.0) g/dL Albumin 3.9 (3.5-5.0) g/dL Urine Color Urine Appearance Urine pH (5.0-9.0) Ur Specific [place] (1.005-1.025) Urine Protein (Neg-Trace) mg/dL Urine Glucose (UA) (Negative) mg/dL Urine Ketones (Negative) mg/dL Urine Blood (Negative) Urine Nitrite (Negative) Ur Leukocyte Esterase (Negative) Urine RBC (0-2) /HPF Urine WBC (0-5) /HPF Ur Squamous Epith Cells (0-2) /HPF Urine Bacteria (None Seen) Hyaline Casts (0-2) /LPF COVID-19 ([facility]) (Negative) COVID-19 Clin Com 02/20/23 02/20/23 Range/Units 14:35 15:44 WBC (4.8-10.8) X10*3/uL RBC (4.20-5.50) X10*6/uL Hgb (12.0-16.0) g/dl Hct (37.0-47.0) % MCV (80.0-98.0) fL MCH (27.0-33.0) pg MCHC (31.0-35.0) g/dl RDW (11.0-16.0) % Plt Count (160-400) X10*3/uL MPV (9.4-12.3) fL Immature Gran % (Auto) (0.0-0.4) % Neut % (Auto) (45-73) % Lymph % (Auto) (20-40) % [place] % (Auto) (2-11) % Eos % (Auto) (0-4) % Baso % (Auto) (0-2) % Lymph # (Auto) (1.2-4.9) X10*3/uL [place] # (Auto) (0.1-1.2) X10*3/uL Eos # (Auto) (0.0-0.4) X10*3/uL Baso # (Auto) (0.0-0.2) X10*3/uL Abs Immat Gran (auto) (0.00-0.03) X10*3/uL Absolute Neuts (auto) (2.0-8.3) x10*3/uL Absolute Nucleated RBC (0.0-0.012) X10*3/uL Nucleated RBC % (auto) (0.0-0.2) /100WBC Sodium (135-145) mmol/L Potassium (3.3-5.1) mmol/L Chloride (96-108) mmol/L Carbon Dioxide (22-29) mmol/L Anion Gap (12-20) BUN (9-16) mg/dL Creatinine (0.5-1.4) mg/dL Estim Creat Clear Calc Estimated GFR Random Glucose (60-115) mg/dL Calcium (8.4-10.2) mg/dL Magnesium (1.6-2.6) mg/dL Total Bilirubin (0.0-1.0) mg/dL AST (5-31) U/L ALT (0-31) U/L Alkaline Phosphatase (39-117) U/L Troponin I High Sens (<3.5-17.0) ng/L Total Protein (6.5-8.0) g/dL Albumin (3.5-5.0) g/dL Urine Color Yellow Urine Appearance Cloudy Urine pH 5.5 (5.0-9.0) Ur Specific [place] 1.025 (1.005-1.025) Urine Protein Negative (Neg-Trace) mg/dL Urine Glucose (UA) Negative (Negative) mg/dL Urine Ketones Negative (Negative) mg/dL Urine Blood Negative (Negative) Urine Nitrite Negative (Negative) Ur Leukocyte Esterase Trace H (Negative) Urine RBC 0-2 (0-2) /HPF Urine WBC 0-5 (0-5) /HPF Ur Squamous Epith Cells 6-10 (0-2) /HPF Urine Bacteria 1+ (None Seen) Hyaline Casts 0-2 (0-2) /LPF COVID-19 ([facility]) Negative (Negative) COVID-19 Clin Com See Note Discharge Plan Discharge Clinical Impression: Left lumbar radiculopathy Patient Disposition: Left Against Medical Advice Prescriptions: No Action cephalexin 500 mg capsule 500 mg PO Q6H 10 Days Qty: 40 0RF doxycycline hyclate 100 mg tablet 100 mg PO BID Qty: 20 0RF oxycodone 5 mg tablet 5 mg PO Q6H PRN (Reason: pain) Qty: 14 0RF Rx Instructions: Partial Fill upon patient request. diazepam [Valium] 5 mg tablet 5 mg PO BID PRN (Reason: muscle spasm) Qty: 10 0RF prednisone 20 mg tablet 60 mg PO DAILY 3 Days Qty: 9 0RF ibuprofen 600 mg tablet 600 mg PO Q6H PRN (Reason: pain) Qty: 20 0RF acetaminophen 500 mg capsule 1,000 mg PO Q8H PRN (Reason: pain) Qty: 30 0RF cefuroxime axetil 500 mg tablet 500 mg PO BID Qty: 14 0RF albuterol sulfate 90 mcg/actuation aerosol powdr breath activated 2 inh inhalation Q4-6H PRN naloxone 4 mg/actuation spray,non-aerosol intranasal nicotine (polacrilex) 2 mg lozenge 2 mg PO Q2H PRN nicotine (polacrilex) 4 mg lozenge 4 mg PO Q2H PRN fluticasone propionate 50 mcg/actuation spray,suspension 1 - 2 spray intranasal DAILY PRN lidocaine 5 % adhesive patch,medicated 2 patch topical DAILY 30 Days Qty: 30 1RF (DME) cane Device See Rx Instructions .Route Qty: 1 0RF Rx Instructions: As directed (DME) [facility] See Rx Instructions .Route Qty: 1 0RF Rx Instructions: As directed Interventions: ED Discharge Assessment Last Done: 02/20/23 17:29 Discharge Date/Time: 02/20/23 17:29
--- NOTE | 2023-02-20 14:11 | ECG_ITS ---
Test Reason : back pain Blood Pressure : / mmHG Vent. Rate : 093 BPM Atrial Rate : 093 BPM P-R Int : 152 ms QRS Dur : 084 ms QT Int : 344 ms P-R-T Axes : 024 017 016 degrees QTc Int : 427 ms Normal sinus rhythm Normal ECG No previous ECGs available Referred By: Pamela Bradley Electronically Signed By:Jayson Paz
[2023-02-20 14:16] VITALS: BP 102/71; PULSE 98; RESP 18; TEMP 36.4; O2SAT 99; BMI 37.6
[2023-02-20] MEDS: Ondansetron ODT 4 MG TAB.RAPDIS TRANSLINGU (14:19)
[2023-02-20 14:44] LABS: MANUAL DIFF FLAG NO
[2023-02-20 14:46] LABS: Basophils Absolute Auto 0.1 X10*3/uL (0.0-0.2); Basophils Percent Auto 0.5 % (0-2); Eosinophils Absolute Auto 0.1 X10*3/uL (0.0-0.4); Eosinophils Percent Auto 0.7 % (0-4); Hematocrit 39.4 % (37.0-47.0); Hemoglobin 12.7 g/dl (12.0-16.0); Imm Gran Abs Auto 0.06 X10*3/uL (0.00-0.03); Imm Gran Pct Auto 0.6 % (0.0-0.4); Lymphocytes Absolute Auto 1.7 X10*3/uL (1.2-4.9); Lymphocytes Percent Auto 17.5 % (20-40); Mean Corpuscular HGB Conc 32.2 g/dl (31.0-35.0); Mean Corpuscular Hemoglobin 28.3 pg (27.0-33.0); Mean Corpuscular Volume 87.9 fL (80.0-98.0); Mean Platelet Volume 9.6 fL (9.4-12.3); Monocytes Absolute Auto 0.5 X10*3/uL (0.1-1.2); Monocytes Percent Auto 4.9 % (2-11); Neutrophils Absolute Auto 7.4 x10*3/uL (2.0-8.3); Neutrophils Percent Auto 75.8 % (45-73); Platelet Count 345 X10*3/uL (160-400); Red Blood Count 4.48 X10*6/uL (4.20-5.50); Red Cell Distribution Width 13.1 % (11.0-16.0); White Blood Count 9.8 X10*3/uL (4.8-10.8)
[2023-02-20 15:02] LABS: COVID-19 Test Negative (Negative); IDNOW Serial# BCCEAD1C
[2023-02-20 15:20] LABS: Troponin-I High Sensitivity < 2.7 ng/L (<3.5-17.0)
[2023-02-20 15:32] VITALS: BP 111/72; PULSE 84; RESP 18; TEMP 36.4; O2SAT 98
[2023-02-20 16:04] LABS: Appearance Urine Cloudy; Color Urine Yellow; Glucose Urine UA Negative (Negative); Leukocyte Esterase Urine Trace (Negative); Nitrite Urine Negative (Negative); PH 5.5 (5.0-9.0); Specific Gravity - Urine 1.025 (1.005-1.025); UMIC TRIGGER UACC YES; Urine Blood Negative (Negative); Urine Ketones Negative (Negative); Urine Protein Negative (Neg-Trace)
[2023-02-20 16:07] LABS: Bacteria Urine 1+ (None Seen); Hyaline Casts Urine 0-2 /LPF (0-2); RBC Urine 0-2 /HPF (0-2); WBC Urine 0-5 /HPF (0-5)
[2023-02-20 17:06] LABS: Alanine Aminotransferase 16 U/L (0-31); Albumin Level 3.9 g/dL (3.5-5.0); Alkaline Phosphatase 81 U/L (39-117); Anion Gap 14 (12-20); Aspartate Amino Transferase 16 U/L (5-31); Bilirubin Total 0.2 mg/dL (0.0-1.0); Blood Urea Nitrogen 12 mg/dL (9-16); Calcium 9.2 mg/dL (8.4-10.2); Carbon Dioxide 24 mmol/L (22-29); Chloride 102 mmol/L (96-108); Creatinine Clr Calc Pharmacy 116.7; Estimated Glomerular Filt Rate > 60; Glucose Random 92 mg/dL (60-115); Potassium 4.5 mmol/L (3.3-5.1); Sodium 135 mmol/L (135-145); Total Protein 7.7 g/dL (6.5-8.0)
[2023-02-20 17:28] VITALS: BP 128/81; PULSE 105; RESP 24; TEMP 36.3; O2SAT 93
--- NOTE | 2023-02-20 17:29 | PC.NURSE ---
pt told md she didnt want to wait and left. eloped
== END 2023-02-20 17:29 | disposition left against medical advice (07) ==
PROVIDERS: Physician Assistant Medical; Emergency Provider Emergency Medicine; PCP Family Medicine
DX: M54.16 Radiculopathy, lumbar region (principal); Z20.822 Contact with and (suspected) exposure to COVID-19; F17.210 Nicotine dependence, cigarettes, uncomplicated; E66.9 Obesity, unspecified; Z68.37 Body mass index [BMI] 37.0-37.9, adult
CPT/HCPCS: 80053; 81001; 81003; 83735; 84484; 85025; 87635; 93005; 99284

== ENCOUNTER → 2023-02-20 14:11 | Outpatient (BNV) | payer MEDICAID, SELFPAY | PROVIDERS: Emergency Provider Emergency Medicine; PCP Family Medicine; Visit Provider Internal Medicine Cardiovascular Disease | DX: M54.59 Other low back pain (principal) | CPT/HCPCS: 93010 ==

== ENCOUNTER 2023-02-26 13:43 | Emergency (ER) | payer MEDICAID, SELFPAY ==
[2023-02-26 14:46] VITALS: BP 139/94; PULSE 105; RESP 20; TEMP 36.2; O2SAT 98; BMI 52.4
--- NOTE | 2023-02-26 16:02 | ED_ITS ---
HPI - General Adult General Chief complaint: Upper Respiratory Symptoms Stated complaint: Back pain/Cough Time Seen by Provider: 02/26/23 16:00 Source: patient Mode of arrival: ambulatory Limitations: no limitations History of Present Illness HPI narrative: Patient is a 42-year-old female with history of lumbar back pain with radiculopathy, lumbar spondylosis, and obesity presenting to the emergency department with complaint of right lumbar pain radiating down right leg for several weeks as well as fever cough, cough, nausea, vomiting for the past 3 days. Patient reports that her lumbar pain is chronic, has been using ibuprofen, Tylenol, lidocaine patches, Flexeril, prednisone, has been to PT, has been to pain management all without relief. Denies any recent falls or other trauma. Denies any new numbness or tingling, denies any saddle anesthesia or bowel or bladder incontinence. Also reports sore throat, nonproductive cough, subjective fevers, nausea and vomiting for 3 days. Denies abdominal pain. Denies urinary symptoms. States son and daughter have similar symptoms. MD complaint: back pain, nausea, vomiting Onset (ago): day(s) Location: back Radiation: extremity and distal Severity: severe Quality: burning Pain Consistency: constant Relieving factors: none Exacerbating factors: none Associated symptoms: cough, fever/chills and nausea/vomiting Treatments prior to arrival: NSAID, cold therapy, heat therapy and other (flexeril, prednisone) Related Data Home Medications Medication Instructions Recorded Confirmed albuterol sulfate 90 mcg/actuation 2 inh inhalation Q4-6H PRN 09/09/20 breath activated powder inhaler fluticasone propionate 50 1 - 2 spray intranasal DAILY PRN 09/19/22 mcg/actuation nasal spray,suspension naloxone 4 mg/actuation nasal spray intranasal 09/19/22 nicotine (polacrilex) 2 mg buccal 2 mg PO Q2H PRN 09/19/22 lozenge nicotine (polacrilex) 4 mg buccal 4 mg PO Q2H PRN 09/19/22 lozenge Previous Rx's Medication Instructions Recorded cephalexin 500 mg capsule 500 mg PO Q6H 10 days #40 caps 02/14/21 doxycycline hyclate 100 mg tablet 100 mg PO BID #20 tabs 05/07/21 acetaminophen 500 mg capsule 1,000 mg PO Q8H PRN pain #30 caps 09/17/22 diazepam 5 mg tablet (Valium) 5 mg PO BID PRN muscle spasm #10 09/17/22 tabs ibuprofen 600 mg tablet 600 mg PO Q6H PRN pain #20 tabs 09/17/22 oxycodone 5 mg tablet 5 mg PO Q6H PRN pain #14 tabs 09/17/22 prednisone 20 mg tablet 60 mg PO DAILY 3 days #9 tabs 09/17/22 cane #1 ea 09/19/22 lidocaine 5 % topical patch 2 patch topical DAILY pain 30 days 09/19/22 #30 ea walker #1 ea 09/19/22 cefuroxime axetil 500 mg tablet 500 mg PO BID #14 tabs 10/07/22 ondansetron 4 mg disintegrating 4 mg PO Q8H PRN nausea and 02/26/23 tablet vomiting #10 tabs Allergies Allergy/AdvReac Type Severity Reaction Status Date / Time No Known Allergies Allergy Verified 02/26/23 14:46 Review of Systems Review of Systems: As per HPI. Yes all other systems are reviewed and are negative Constitutional: Constitutional: Reports as per HPI [facility] Past Medical History Medical History Asthma Bipolar disorder Bronchitis Chronic low back pain Cigarette smoker Gestational diabetes Hidradenitis suppurativa Morbid obesity with body mass index (BMI) of 50.0 to 59.9 in adult Tuberculosis Surgical History History of 2 sections Family History Family History Mother Diabetes mellitus Father Diabetes mellitus Sister Diabetes mellitus Social History Social History Alcohol intake: never Cigarettes Per Day: 4 Advance Directives: No Advance Directives Information Provided: Yes Physical Exam ED Vital Signs: Vital Signs - 24 hr 02/26/23 14:46 Temperature 97.2 F Pulse Rate 105 H Respiratory Rate 20 Blood Pressure 139/94 H Pulse Oximetry 98 Oxygen Delivery Method Room Air BMI result Body Mass Index 52.4 Vital signs have been reviewed and appear to be correct. Blood pressure elevated. Heart rate mildly elevated. Respiratory rate normal. Temperature normal. Oxygen saturation normal. Const General: cooperative and no acute distress Nutritional Appearance: obese Orientation/consciousness: oriented to person, oriented to place, oriented to time and patient oriented x3 Limitations: no limitations HENMT Head: Yes normocephalic and Yes atraumatic Ears: external ears normal General nose exam: Normal external nose present Face and sinus: Yes face symmetric Mouth: oropharynx normal and moist mucous membranes Throat: Yes uvula midline Eyes Pupils: Equal, round and reactive pupils present Neck Neck: Yes normal visual inspection and Yes supple Resp Effort & Inspection: normal respiratory effort and able to speak in complete sentences Auscultation: clear to auscultation bilaterally Cardio Rate: regular rate Rhythm: regular rhythm Heart sounds: S1 normal heart sound present and S2 normal heart sound present GI Inspection: Yes normal to inspection Palpation (GI): Soft to palpation, nontender, no guarding and No Rebound tenderness present Auscultation: normoactive bowel sounds General: Yes no CVA tenderness Back/Spine/Pelvis Back: no CVA tenderness Cervical Spine: No Cervical spine tenderness Thoracic/Lumbar Spine: thoracic and lumbar spine normal to inspection, thoraco- lumbar ROM normal, straight leg raise negative bilaterally, pain with thoraco- lumbar ROM, paraspinal muscle tenderness on the right in the upper lumbar and in the mid lumbar, No thoracic spinal tenderness and No lumbar spinal tenderness Pelvis: no pain with anterior-posterior compression and no pain with lateral compression Skin General skin exam: elasticity normal and turgor normal Neuro General: oriented to person, oriented to place, oriented to time, patient oriented x3, moves all extremities, no focal motor deficits and CN's II-XI inta ct bilaterally Cranial nerves: Yes Equal, round and reactive pupils present Cognition (Neuro): normal cognition Extrem General: Yes full ROM, Yes no pedal edema and Yes no calf tenderness Psych Mental Status: mental status grossly normal Affect: normal affect Thought process: Normal thought process present Medical Decision Making Medical Decision Making MDM Narrative: Patient is a 42-year-old female with history of lumbar back pain with radiculopathy, lumbar spondylosis, and obesity presenting to the emergency de partment with complaint of right lumbar pain radiating down right leg for several weeks as well as fever cough, cough, nausea, vomiting for the past 3 days. On exam patient is awake, A+Ox3, VS WNL, afebrile, normal neurological exam without focal deficits, LS CTA throughout, abdomen soft and nontender, no CVA tenderness, no midline spinal tenderness, DTRs 2+ throughout, right lumbar paraspinal tenderness. Given reported symptoms and physical exam findings, initial differential includes viral upper respiratory infection, flu, Covid, strep pharyngitis, viral gastroenteritis, lumbar radiculopathy, lumbar strain. Patient eating and drinking in exam room without vomiting. No red flag findings concerning for cauda equina or spinal epidural abscess. Do not feel imaging is indicated at this time as patient has known lumbar spondylosis and denies recent trauma. Labs notable for no evidence of infection on UA, negative Covid/flu/strep. Feel back pain is likely related to chronic spondylosis. Offered to prescribe patient a short course of prednisone or refer to spine and sport, all of which patient refused, states she will continue with the ibuprofen, Tylenol, and lidocaine patches she has been using. Feel fever, cough, nausea and vomiting are likely related to viral illness. Will prescribe ondansetron as needed for nausea. Instructed patient to ensure adequate rest, adequate fluid intake, follow-up with primary care provider this week. Return precautions discussed at bedside. Patient verbalized understanding of and agreement with plan. Differential Diagnosis Differential Diagnoses: The differential diagnosis associated with the presentation includes As per MDM. Lab Data [facility] Lab Attestation statement: I reviewed the patient's lab results. As per [facility]. Labs: Lab Results 02/26/23 02/26/23 02/26/23 Range/Units 15:39 15:39 15:39 Urine Color Urine Appearance Urine pH (5.0-9.0) Ur Specific [place] (1.005-1.025) Urine Protein (Neg-Trace) mg/dL Urine Glucose (UA) (Negative) mg/dL Urine Ketones (Negative) mg/dL Urine Blood (Negative) Urine Nitrite (Negative) Ur Leukocyte Esterase (Negative) Urine Test (NEGATIVE) COVID-19 ([facility]) Negative (Negative) COVID-19 Clin Com See Note Influenza Type A ([facility]) Negative (Negative) Influenza Type B ([facility]) Negative (Negative) Influenza A & B Note See Note S. pyogenes GrpA [facility] Negative (Negative) 02/26/23 02/26/23 Range/Units 16:22 16:22 Urine Color Yellow Urine Appearance Cloudy Urine pH 5.5 (5.0-9.0) Ur Specific [place] 1.025 (1.005-1.025) Urine Protein Negative (Neg-Trace) mg/dL Urine Glucose (UA) Negative (Negative) mg/dL Urine Ketones Negative (Negative) mg/dL Urine Blood Negative (Negative) Urine Nitrite Negative (Negative) Ur Leukocyte Esterase Negative (Negative) Urine Test NEGATIVE (NEGATIVE) COVID-19 ([facility]) (Negative) COVID-19 Clin Com Influenza Type A ([facility]) (Negative) Influenza Type B ([facility]) (Negative) Influenza A & B Note S. pyogenes GrpA [facility] (Negative) External Record Review External record reviewed: Inpatient record, Office record and Outpatient record Prescription Management I considered prescription management with: Other (Ondansetron) Discharge Plan Discharge Clinical Impression: Chronic lumbar radiculopathy, Viral illness Patient Disposition: Home, Self-Care Instructions: Lumbar Radiculopathy (ED), Viral Syndrome (ED), Arthritis (ED) Additional Instructions: You were evaluated in the emergency department today for back pain, fever, cough, nausea and vomiting. Your evaluation did not show signs of medical conditions requiring emergent intervention at this time. We recommended that you use ibuprofen or Tylenol per package directions every 6 hours as needed for pain. If necessary, you can alternate these medications so that you take one medication every 3 hours. For instance, at noon take ibuprofen, then at 3:00 p.m. take Tylenol, then at 6:00 p.m. take ibuprofen. You are also being prescribed ondansetron for nausea which you can use every 8 hours. Please schedule an appointment for follow-up with your primary care physician this week for further evaluation of your symptoms. Return to the emergency department if you experience worsening back pain, difficulty walking, fevers, numbness, tingling, incontinence, groin numbness or tingling, or any other concerning symptoms. Prescriptions: New ondansetron 4 mg tablet,disintegrating 4 mg PO Q8H PRN (Reason: nausea and vomiting) Qty: 10 0RF No Action cephalexin 500 mg capsule 500 mg PO Q6H 10 Days Qty: 40 0RF doxycycline hyclate 100 mg tablet 100 mg PO BID Qty: 20 0RF oxycodone 5 mg tablet 5 mg PO Q6H PRN (Reason: pain) Qty: 14 0RF Rx Instructions: Partial Fill upon patient request. diazepam [Valium] 5 mg tablet 5 mg PO BID PRN (Reason: muscle spasm) Qty: 10 0RF prednisone 20 mg tablet 60 mg PO DAILY 3 Days Qty: 9 0RF ibuprofen 600 mg tablet 600 mg PO Q6H PRN (Reason: pain) Qty: 20 0RF acetaminophen 500 mg capsule 1,000 mg PO Q8H PRN (Reason: pain) Qty: 30 0RF cefuroxime axetil 500 mg tablet 500 mg PO BID Qty: 14 0RF albuterol sulfate 90 mcg/actuation aerosol powdr breath activated 2 inh inhalation Q4-6H PRN naloxone 4 mg/actuation spray,non-aerosol intranasal nicotine (polacrilex) 2 mg lozenge 2 mg PO Q2H PRN nicotine (polacrilex) 4 mg lozenge 4 mg PO Q2H PRN fluticasone propionate 50 mcg/actuation spray,suspension 1 - 2 spray intranasal DAILY PRN lidocaine 5 % adhesive patch,medicated 2 patch topical DAILY 30 Days Qty: 30 1RF (DME) cane Device See Rx Instructions .Route Qty: 1 0RF Rx Instructions: As directed (DME) emily [facility] [place] See Rx Instructions .Route Qty: 1 0RF Rx Instructions: As directed Referrals: [facility] [Provider Group]
[2023-02-26 16:10] LABS: COVID-19 Test Negative (Negative); IDNOW Serial# BCCEAD1C
[2023-02-26 16:14] LABS: IDNOW Serial# 55D5AD1C; Influenza A Negative (Negative); Influenza B2 Negative (Negative)
[2023-02-26 16:19] LABS: IDNOW Serial# 08D9AD1C; Strep A Nucleic Acid Negative (Negative)
[2023-02-26 16:30] LABS: Appearance Urine Cloudy; Color Urine Yellow; Glucose Urine UA Negative (Negative); Leukocyte Esterase Urine Negative (Negative); Nitrite Urine Negative (Negative); PH 5.5 (5.0-9.0); Specific Gravity - Urine 1.025 (1.005-1.025); Urine Blood Negative (Negative); Urine Ketones Negative (Negative); Urine Protein Negative (Neg-Trace)
[2023-02-26 16:35] LABS: UPreg QC Valid YES; Urine Pregnancy NEGATIVE (NEGATIVE)
== END 2023-02-26 17:42 | disposition home or self-care (01) ==
PROVIDERS: Physician Assistant; Emergency Provider Internal Medicine; PCP Family Medicine
DX: M54.2 Cervicalgia (principal); R05.9 Cough, unspecified; Z79.899 Other long term (current) drug therapy
CPT/HCPCS: 81003; 81025; 87502; 87635; 87651; 99283

== ENCOUNTER 2023-03-20 15:05 | Emergency (ER) | payer MEDICAID, SELFPAY ==
[2023-03-20 15:26] VITALS: BP 114/80; PULSE 101; RESP 18; TEMP 36.9; O2SAT 97; BMI 40.2
--- NOTE | 2023-03-20 15:26 | ED_ITS ---
HPI - General Adult General Chief complaint: Eye Problems Stated complaint: Right eye pain Time Seen by Provider: 03/20/23 15:49 Source: patient Mode of arrival: ambulatory Limitations: no limitations History of Present Illness HPI narrative: 42-year-old female with history of morbid obesity, bipolar disorder, asthma, bronchitis, tuberculosis, hidradenitis suppurativa, R sided myopia presenting to the ED today with a complaint of right eye pain after small rock struck her in the right eye while doing yard work yesterday. Reports minimal pain initially, worsening over night. Also reports pain w/ opening R eye and swelling. Patient reports constant headache since last night. Denies vision changes, blurred vision, vision loss, nausea, vomiting, dizziness. She only wears contacts to her L eye not her right. Related Data Home Medications Medication Instructions Recorded Confirmed albuterol sulfate 90 mcg/actuation 2 inh inhalation Q4-6H PRN 09/09/20 breath activated powder inhaler fluticasone propionate 50 1 - 2 spray intranasal DAILY PRN 09/19/22 mcg/actuation nasal spray,suspension naloxone 4 mg/actuation nasal spray intranasal 09/19/22 nicotine (polacrilex) 2 mg buccal 2 mg PO Q2H PRN 09/19/22 lozenge nicotine (polacrilex) 4 mg buccal 4 mg PO Q2H PRN 09/19/22 lozenge Previous Rx's Medication Instructions Recorded cephalexin 500 mg capsule 500 mg PO Q6H 10 days #40 caps 02/14/21 doxycycline hyclate 100 mg tablet 100 mg PO BID #20 tabs 05/07/21 acetaminophen 500 mg capsule 1,000 mg PO Q8H PRN pain #30 caps 09/17/22 diazepam 5 mg tablet (Valium) 5 mg PO BID PRN muscle spasm #10 09/17/22 tabs ibuprofen 600 mg tablet 600 mg PO Q6H PRN pain #20 tabs 09/17/22 oxycodone 5 mg tablet 5 mg PO Q6H PRN pain #14 tabs 09/17/22 prednisone 20 mg tablet 60 mg PO DAILY 3 days #9 tabs 09/17/22 cane #1 ea 09/19/22 lidocaine 5 % topical patch 2 patch topical DAILY pain 30 days 09/19/22 #30 ea walker #1 ea 09/19/22 cefuroxime axetil 500 mg tablet 500 mg PO BID #14 tabs 10/07/22 ondansetron 4 mg disintegrating 4 mg PO Q8H PRN nausea and 02/26/23 tablet vomiting #10 tabs neomycin 3.5 mg/g-polymyxin B 1 appl ophthalmic-Right QID #3.5 03/20/23 10,000 unit/g-dexameth 0.1 % eye grams oint (Maxitrol) timolol 0.25 % eye drops 1 drp ophthalmic (eye) BID #5 mL 03/20/23 Allergies Allergy/AdvReac Type Severity Reaction Status Date / Time No Known Allergies Allergy Verified 03/20/23 15:29 Review of Systems Review of Systems: Constitutional : No Weight loss, No Fever, No Chills ENT/Mouth : No sore throat, No Rhinorrhea Eyes: + Eye Pain, No Swelling, No Redness Cardiovascular : No Chest Pain, No SOB, No Dyspnea on Exertion, No Orthopnea, No Edema, No Palpitations Respiratory : No Cough, No Sputum, No Wheezing Gastrointestinal : No Nausea, No Vomiting, No Diarrhea, No Constipation, No abdominal Pain, No Hematochezia, No Melena Genitourinary : No Dysuria, No Urinary Frequency, No Hematuria, Musculoskeletal : No joint pain, No Myalgias, No Joint Swelling Skin : No Skin Lesions, No rash Neuro : No Weakness, No Numbness, No Dizziness, + Headache All other systems reviewed and are negative Yes all other systems are reviewed and are negative [facility] Past Medical History Attestation statement: The following information was validated with the patient. Source: old records reviewed and nursing notes reviewed Medical History Asthma Bipolar disorder Bronchitis Chronic low back pain Cigarette smoker Gestational diabetes Hidradenitis suppurativa Morbid obesity with body mass index (BMI) of 50.0 to 59.9 in adult Tuberculosis Surgical History History of 2 sections Family History Family History Mother Diabetes mellitus Father Diabetes mellitus Sister Diabetes mellitus Social History Social History Alcohol intake: never Cigarettes Per Day: 4 Advance Directives: No Advance Directives Information Provided: No Physical Exam ED Vital Signs: Vital Signs - 24 hr 03/20/23 15:26 Temperature 98.4 F Pulse Rate 101 H Respiratory Rate 18 Blood Pressure 114/80 Pulse Oximetry 97 Oxygen Delivery Method Room Air BMI result Body Mass Index 40.2 Vital signs stable Appearance: Alert.? Oriented X3.? No acute distress.? Head: Normocephalic, atraumatic, no step-offs or deformities Eyes: Pupils equal, round and reactive to light.?EOMI pain free. Negative sidel sign. Small conrneal abrasion to R eye 12 o'clock position R eye pressure: 44, L eye pressure 13 CVS: Normal heart rate and rhythm.? Pulses normal.? Respiratory: No respiratory distress.? Breath sounds normal.? Skin: Skin warm and dry.? Normal skin color.? Normal skin turgor.? Neuro: Oriented X 3.? No motor deficit.? No sensory deficit. CN 2-12 intact Course Course Course Narrative: This is a rapid medical exam: Additional HPI, ROS, PE not included below will be deferred to primary provider. Patient is a 42-year-old female presenting to the emergency department with complaint of right eye pain. Was raking yesterday and a rock flew into her right eye. Pain was minimal initially, then worsened last night, also c/o headache. Did irrigate eye last night. Wears contact lenses, does not have lens in R eye now. Unable to obtain IOPs in triage. 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 Call out to Dr. White Time: 17:15 Reevaluation #2: Spoke to Dr. Masterson who recommends ruling out retinal detachment recommends Timolol drops 2X a day until she sees an eye doctor and Maxitrol QID until she sees ophthalmology. Patient eloped from the department because she wants to leave. Right-sided eye ultrasound with no retinal detachment appreciated on my exam. Time: 17:31 Reevaluation #3: Patient is stating that she needs to leave she has no ride home, explained to patient that this is very dangerous of it is not treated she is willing to get 1st dose of drops here in the department however unwilling to stay for further pressure is, eye drops, imaging. Will be leaving against medical advice she states she will follow-up with eye doctor tomorrow. Will be signing out against medical advice risks include , vision loss, infection, worsening pain., misdiagnosis. Patient verbalizes understanding of this Time: 17:42 Consultations Consultation #1: My attending evaluated this patient and agrees with diagnosis and treatment plan Medications Administered Discontinued Medications Generic Name Dose Route Start Last Admin Trade Name Freq PRN Reason Stop Dose Admin Apraclonidine HCl 1 drop 03/20/23 17:12 03/20/23 17:38 Apraclonidine Hcl 1 % Oph Eve 1 Each Droperette EYE-RIGHT 03/20/23 17:13 1 drop ONCE ONE Administration Fluorescein Sodium 1 strip 03/20/23 16:21 03/20/23 17:03 Fluorescein Sodium Strip EYE-BOTH 03/20/23 16:22 1 strip ONCE ONE Administration Neomycin/Polymyxin/Dexamethasone 0.5 inch 03/20/23 17:25 03/20/23 17:38 Neomy/Polymyx/Dexameth Oph Oin 3.5 Gm Tube EYE-RIGHT 03/20/23 17:26 0.5 inch ONCE ONE Administration Tetracaine HCl 3 drop 03/20/23 16:21 03/20/23 17:03 Tetracaine Hcl/Pf 0.5% Oph Vee 4 Ml Drops EYE-BOTH 03/20/23 16:22 3 drop ONCE ONE Administration Timolol Maleate 1 drop 03/20/23 17:12 03/20/23 17:38 Timolol Maleate 0.5 % Oph Vee 5 Ml Drbtl EYE-RIGHT 03/20/23 17:13 1 drop ONCE ONE Administration Medical Decision Making Medical Decision Making MDM Narrative: 42 yo female presenting with right eye pain x1 day PE- Pupils equal, round and reactive to light.?EOMI pain free. Negative sidel sign. Small conrneal abrasion to R eye 12 ocklock position R eye pressure: 44, L eye pressure 13 Clinical suspicion for corneal abrasion vs eye foreign body vs iritis vs keratitis. Unlikely acute angle closure glaucoma however will rule out. HX and PE w/ low suspicion for blow out fracture, wet macular degeneration, venous or arterial occlusion, globe rupure, preseptal or orbital cellulitis Plan: Visual acuity, fluorescein stain, eye pressures, Differential Diagnosis Differential Diagnoses: The differential diagnosis associated with the presentation includes Clinical suspicion for corneal abrasion vs eye foreign body vs iritis vs keratitis. Unlikely acute angle closure glaucoma however will rule out. HX and PE w/ low suspicion for blow out fracture, wet macular degeneration, venous or arterial occlusion, globe rupure, preseptal or orbital cellulitis Admission/Observation Consideration of admission/observation: Escalation of care including admissio n/observation considered No indication Tests considered The following testing was considered but not selected: Extraocular movements intact, pain-free, no signs of globe rupture, unlikely orbital fracture. No indication for imaging. Core Measures AMI core measures followed: Yes Measure exclusions: not indicated Critical Care Time Critical Care Time Critical Care Time: Yes Total Critical Care Time: 35 Attestation: I attest to this time spent taking care of the patient, obtaining history, physical, reviewing labs, imaging, speaking to my attending, speaking to specialist. Discharge Plan Discharge Clinical Impression: Acute closed-angle glaucoma, Acute right eye pain, Abrasion, corneal, Left against medical advice Patient Disposition: Home, Self-Care Instructions: Corneal Abrasion (ED), Eye Pain (ED) Additional Instructions: Take your medications as prescribed. If you were prescribed antibiotics today, it is important that you take your medication to their entirety, do not skip any doses, do not finish them early. Follow-up with your primary care provider this week. Follow up with Ophthalmology tomorrow Return to the emergency department with new or worsening symptoms. Such as fevers, chills, chest pain, shortness of breath, nausea, vomiting, dizziness, headache, vision changes, lethargy In case of emergency call 911 You left against medical advice risks include worsening condition, worsening pain, loss of vision completely, headache, vision changes, dizziness, , stroke, infection. Prescriptions: New neomycin-polymyxin B-dexameth [Maxitrol] 3.5 mg/g-10,000 unit/g-0.1 % ointment 1 appl ophthalmic-Right QID Qty: 3.5 0RF Rx Instructions: space evenly during waking hours timolol 0.25 % drops 1 drp ophthalmic (eye) BID Qty: 5 0RF No Action cephalexin 500 mg capsule 500 mg PO Q6H 10 Days Qty: 40 0RF doxycycline hyclate 100 mg tablet 100 mg PO BID Qty: 20 0RF oxycodone 5 mg tablet 5 mg PO Q6H PRN (Reason: pain) Qty: 14 0RF Rx Instructions: Partial Fill upon patient request. diazepam [Valium] 5 mg tablet 5 mg PO BID PRN (Reason: muscle spasm) Qty: 10 0RF prednisone 20 mg tablet 60 mg PO DAILY 3 Days Qty: 9 0RF ibuprofen 600 mg tablet 600 mg PO Q6H PRN (Reason: pain) Qty: 20 0RF acetaminophen 500 mg capsule 1,000 mg PO Q8H PRN (Reason: pain) Qty: 30 0RF ondansetron 4 mg tablet,disintegrating 4 mg PO Q8H PRN (Reason: nausea and vomiting) Qty: 10 0RF cefuroxime axetil 500 mg tablet 500 mg PO BID Qty: 14 0RF albuterol sulfate 90 mcg/actuation aerosol powdr breath activated 2 inh inhalation Q4-6H PRN naloxone 4 mg/actuation spray,non-aerosol intranasal nicotine (polacrilex) 2 mg lozenge 2 mg PO Q2H PRN nicotine (polacrilex) 4 mg lozenge 4 mg PO Q2H PRN fluticasone propionate 50 mcg/actuation spray,suspension 1 - 2 spray intranasal DAILY PRN lidocaine 5 % adhesive patch,medicated 2 patch topical DAILY 30 Days Qty: 30 1RF (DME) cane Device See Rx Instructions .Route Qty: 1 0RF Rx Instructions: As directed (DME) emily [facility] [place] See Rx Instructions .Route Qty: 1 0RF Rx Instructions: As directed Referrals: Eloy White [Physician] - 1 day Leigh Self MD [Primary Care Provider] - 2 days Stand Alone Forms: Against Medical Advice, Work/School Release
[2023-03-20] MEDS: Tetracaine HCl/PF 0.5% Oph Sol 4 ML DROPS 3 DROP EYE-BOTH (17:03)
[2023-03-20] MEDS: Fluorescein Sodium STRIP 1 STRIP EYE-BOTH (17:03)
[2023-03-20] MEDS: Apraclonidine HCl 1 % Oph Sol 1 EACH DROPERETTE 1 DROP EYE-RIGHT (17:38)
[2023-03-20] MEDS: NeoMY/Polymyx/Dexameth Oph Oin 3.5 GM TUBE 0.5 INCH EYE-RIGHT (17:38)
[2023-03-20] MEDS: timoloL maleate 0.5 % Oph Sol 5 ML DRBTL 1 DROP EYE-RIGHT (17:38)
[2023-03-20 17:57] LABS: MANUAL DIFF FLAG NO
[2023-03-20 18:06] LABS: Basophils Percent Auto 0.5 % (0-2); Eosinophils Absolute Auto 0.2 X10*3/uL (0.0-0.4); Eosinophils Percent Auto 2.2 % (0-4); Hematocrit 36.8 % (37.0-47.0); Hemoglobin 11.8 g/dl (12.0-16.0); Imm Gran Abs Auto 0.04 X10*3/uL (0.00-0.03); Imm Gran Pct Auto 0.5 % (0.0-0.4); Lymphocytes Absolute Auto 1.9 X10*3/uL (1.2-4.9); Lymphocytes Percent Auto 21.9 % (20-40); Mean Corpuscular HGB Conc 32.1 g/dl (31.0-35.0); Mean Corpuscular Volume 87.2 fL (80.0-98.0); Mean Platelet Volume 9.6 fL (9.4-12.3); Monocytes Absolute Auto 0.6 X10*3/uL (0.1-1.2); Monocytes Percent Auto 6.5 % (2-11); Neutrophils Percent Auto 68.4 % (45-73); Platelet Count 358 X10*3/uL (160-400); Red Blood Count 4.22 X10*6/uL (4.20-5.50); Red Cell Distribution Width 13.2 % (11.0-16.0); White Blood Count 8.8 X10*3/uL (4.8-10.8)
[2023-03-20 18:14] LABS: Alanine Aminotransferase 17 U/L (0-31); Albumin Level 3.7 g/dL (3.5-5.0); Alkaline Phosphatase 87 U/L (39-117); Anion Gap 11 (12-20); Aspartate Amino Transferase 12 U/L (5-31); Bilirubin Total 0.2 mg/dL (0.0-1.0); Blood Urea Nitrogen 15 mg/dL (9-16); Carbon Dioxide 21 mmol/L (22-29); Chloride 111 mmol/L (96-108); Creatinine Clr Calc Pharmacy 99.7; Estimated Glomerular Filt Rate > 60; Glucose Random 102 mg/dL (60-115); Potassium 3.9 mmol/L (3.3-5.1); Sodium 139 mmol/L (135-145); Total Protein 7.2 g/dL (6.5-8.0)
[2023-03-20 18:14] LABS: INTERNATIONAL NORM RATIO 0.9 (0.9-1.1); Prothrombin Time 11.4 SEC (11.1-13.3)
== END 2023-03-20 18:38 | disposition home or self-care (01) ==
PROVIDERS: Physician Assistant; Emergency Provider Internal Medicine; PCP Family Medicine
DX: S05.02XA Injury of conjunctiva and corneal abrasion without foreign body, left eye, initial encounter (principal); H40.211 Acute angle-closure glaucoma, right eye; H52.11 Myopia, right eye; H57.11 Ocular pain, right eye; X58.XXXA Exposure to other specified factors, initial encounter; Y93.9 Activity, unspecified; Y92.9 Unspecified place or not applicable; Y99.9 Unspecified external cause status; Z79.899 Other long term (current) drug therapy
CPT/HCPCS: 36415; 80053; 85025; 85610; 99282; 99283

== ENCOUNTER 2023-09-04 18:01 | Emergency (ER) | payer MEDICAID, SELFPAY ==
--- NOTE | 2023-09-04 19:15 | ED_ITS ---
HPI - Extremity Injury (Upper) General Chief Complaint: General Medical Stated Complaint: R shoulder pain/R eye issues Related Data Home Medications Medication Instructions Recorded Confirmed albuterol sulfate 90 mcg/actuation 2 inh inhalation Q4-6H PRN 09/09/20 breath activated powder inhaler fluticasone propionate 50 1 - 2 spray intranasal DAILY PRN 09/19/22 mcg/actuation nasal spray,suspension naloxone 4 mg/actuation nasal spray intranasal 09/19/22 nicotine (polacrilex) 2 mg buccal 2 mg PO Q2H PRN 09/19/22 lozenge nicotine (polacrilex) 4 mg buccal 4 mg PO Q2H PRN 09/19/22 lozenge Previous Rx's Medication Instructions Recorded cephalexin 500 mg capsule 500 mg PO Q6H 10 days #40 caps 02/14/21 doxycycline hyclate 100 mg tablet 100 mg PO BID #20 tabs 05/07/21 acetaminophen 500 mg capsule 1,000 mg (2 x 500 mg) PO Q8H PRN 09/17/22 pain #30 caps diazepam 5 mg tablet (Valium) 5 mg PO BID PRN muscle spasm #10 09/17/22 tabs ibuprofen 600 mg tablet 600 mg PO Q6H PRN pain #20 tabs 09/17/22 oxycodone 5 mg tablet 5 mg PO Q6H PRN pain #14 tabs 09/17/22 prednisone 20 mg tablet 60 mg (3 x 20 mg) PO DAILY 3 days 09/17/22 #9 tabs cane #1 ea 09/19/22 lidocaine 5 % topical patch 2 patch topical DAILY pain 30 days 09/19/22 #30 ea walker #1 ea 09/19/22 cefuroxime axetil 500 mg tablet 500 mg PO BID #14 tabs 10/07/22 ondansetron 4 mg disintegrating 4 mg PO Q8H PRN nausea and 02/26/23 tablet vomiting #10 tabs neomycin 3.5 mg/g-polymyxin B 1 appl ophthalmic-Right QID #3.5 03/20/23 10,000 unit/g-dexameth 0.1 % eye grams oint (Maxitrol) timolol 0.25 % eye drops 1 drp ophthalmic (eye) BID #5 mL 03/20/23 Allergies Allergy/AdvReac Type Severity Reaction Status Date / Time No Known Allergies Allergy Verified 09/04/23 19:16 FORMERLY [facility], [facility] Past Medical History Medical History Asthma Bipolar disorder Bronchitis Chronic low back pain Cigarette smoker Gestational diabetes Hidradenitis suppurativa Morbid obesity with body mass index (BMI) of 50.0 to 59.9 in adult Tuberculosis Surgical History History of 2 sections Family History Family History Mother Diabetes mellitus Father Diabetes mellitus Sister Diabetes mellitus Social History Social History Alcohol intake: never Cigarettes Per Day: 4 Advance Directives: No Advance Directives Information Provided: No Physical Exam Vital Signs: Vital Signs: Last Vital Signs Temp 97.3 F 09/04/23 19:16 Pulse 85 09/04/23 19:16 Resp 18 09/04/23 19:16 BP 101/53 L 09/04/23 19:16 Pulse Ox 97 09/04/23 19:16 O2 Del Method Room Air 09/04/23 19:16 BMI result Body Mass Index 48.7 Course Course Course Narrative: RME: 43 year-old F w/ PMHx bipolar, hidradenitis, bronchitis, asthma, cataracts, glaucoma presenting to the ED c/o acute on chronic bilateral shoulder pain x last night & right eye itching/redness x3 days w/ FB sensation. 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 admits to wearing contacts, no glasses EKG, VA, tetricaine/fluorescein ordered Full HPI, ROS and PE to be performed by primary ED provider. Discharge Plan Discharge Clinical Impression: Chronic shoulder pain Patient Disposition: Left W/O Completing Treatment Prescriptions: No Action cephalexin 500 mg capsule 500 mg PO Q6H 10 Days Qty: 40 0RF doxycycline hyclate 100 mg tablet 100 mg PO BID Qty: 20 0RF oxycodone 5 mg tablet 5 mg PO Q6H PRN (Reason: pain) Qty: 14 0RF Rx Instructions: Partial Fill upon patient request. diazepam [Valium] 5 mg tablet 5 mg PO BID PRN (Reason: muscle spasm) Qty: 10 0RF prednisone 20 mg tablet 60 mg PO DAILY 3 Days Qty: 9 0RF ibuprofen 600 mg tablet 600 mg PO Q6H PRN (Reason: pain) Qty: 20 0RF acetaminophen 500 mg capsule 1,000 mg PO Q8H PRN (Reason: pain) Qty: 30 0RF ondansetron 4 mg tablet,disintegrating 4 mg PO Q8H PRN (Reason: nausea and vomiting) Qty: 10 0RF neomycin-polymyxin B-dexameth [Maxitrol] 3.5 mg/g-10,000 unit/g-0.1 % ointment 1 appl ophthalmic-Right QID Qty: 3.5 0RF Rx Instructions: space evenly during waking hours timolol 0.25 % drops 1 drp ophthalmic (eye) BID Qty: 5 0RF cefuroxime axetil 500 mg tablet 500 mg PO BID Qty: 14 0RF albuterol sulfate 90 mcg/actuation aerosol powdr breath activated 2 inh inhalation Q4-6H PRN naloxone 4 mg/actuation spray,non-aerosol intranasal nicotine (polacrilex) 2 mg lozenge 2 mg PO Q2H PRN nicotine (polacrilex) 4 mg lozenge 4 mg PO Q2H PRN fluticasone propionate 50 mcg/actuation spray,suspension 1 - 2 spray intranasal DAILY PRN lidocaine 5 % adhesive patch,medicated 2 patch topical DAILY 30 Days Qty: 30 1RF (DME) cane Device See Rx Instructions .Route Qty: 1 0RF Rx Instructions: As directed (ANDRESSA) [place] [facility] [place] .Route Qty: 1 0RF Rx Instructions: As directed Discharge Date/Time: 09/04/23 21:38
[2023-09-04 19:16] VITALS: BP 101/53; PULSE 85; RESP 18; TEMP 36.3; O2SAT 97; BMI 48.7
--- NOTE | 2023-09-04 20:34 | MHC.EDTECH ---
Patient refused EKG
--- NOTE | 2023-09-04 21:36 | PC.NURSE ---
pt called multiple times to be roomed in [facility]. no answer per registration staff pt states I'm not going to wait long
== END 2023-09-04 21:38 | disposition left against medical advice (07) ==
PROVIDERS: Emergency Provider Emergency Medicine; PCP Family Medicine
DX: M25.511 Pain in right shoulder (principal)
CPT/HCPCS: 99281

== ENCOUNTER 2023-12-08 13:40 | Outpatient (REF) | payer MEDICAID, SELFPAY ==
[2023-12-08 16:44] LABS: Estimated Average Glucose 111 mg/dL; Hemoglobin A1c % 5.5 % (<6.0)
[2023-12-08 17:08] LABS: Alanine Aminotransferase 17 U/L (0-31); Albumin Level 3.9 g/dL (3.5-5.0); Alkaline Phosphatase 88 U/L (39-117); Anion Gap 10 (12-20); Aspartate Amino Transferase 14 U/L (5-31); Bilirubin Total 0.2 mg/dL (0.0-1.0); Blood Urea Nitrogen 13 mg/dL (9-16); Calcium 9.3 mg/dL (8.4-10.2); Carbon Dioxide 22 mmol/L (22-29); Chloride 111 mmol/L (96-108); Cholesterol 160 mg/dL (<200); Estimated Glomerular Filt Rate > 60; Glucose Random 86 mg/dL (60-115); HDL Cholesterol 44 mg/dL (>40); LDL Cholesterol Calculated 95 mg/dL (<100); Potassium 4.1 mmol/L (3.3-5.1); Sodium 139 mmol/L (135-145); Total Protein 7.8 g/dL (6.5-8.0); Triglycerides 105 mg/dL (<150)
[2023-12-08 17:23] LABS: TSH reflex Free T4 0.38 uIU/mL (0.32-4.0)
[2023-12-08 18:40] LABS: Reflex LDLD? No
== END 2023-12-08 13:41 | disposition home or self-care (01) ==
LOC: HO.HHCL 13:40
PROVIDERS: Visit Provider Family Medicine
DX: E66.01 Morbid (severe) obesity due to excess calories (principal); Z68.43 Body mass index [BMI] 50.0-59.9, adult; R73.03 Prediabetes
CPT/HCPCS: 36415; 80053; 80061; 83036; 84443

== ENCOUNTER 2024-04-10 17:10 | Emergency (ER) | payer MEDICAID, SELFPAY ==
--- NOTE | 2024-04-10 17:20 | ED_ITS ---
HPI - Back Pain/Injury General Chief Complaint: Back Pain/Injury Stated Complaint: low back pain radiating to right leg Related Data Home Medications ?Medication ?Instructions ?Recorded ?Confirmed albuterol sulfate 90 mcg/actuation 2 inh inhalation Q4-6H PRN 09/09/20 breath activated powder inhaler fluticasone propionate 50 1 - 2 spray intranasal DAILY PRN 09/19/22 mcg/actuation nasal spray,suspension naloxone 4 mg/actuation nasal spray intranasal 09/19/22 nicotine (polacrilex) 2 mg buccal 2 mg PO Q2H PRN 09/19/22 lozenge nicotine (polacrilex) 4 mg buccal 4 mg PO Q2H PRN 09/19/22 lozenge Previous Rx's ?Medication ?Instructions ?Recorded cephalexin 500 mg capsule 500 mg PO Q6H 10 days #40 caps 02/14/21 doxycycline hyclate 100 mg tablet 100 mg PO BID #20 tabs 05/07/21 acetaminophen 500 mg capsule 1,000 mg (2 x 500 mg) PO Q8H PRN 09/17/22 pain #30 caps diazepam 5 mg tablet (Valium) 5 mg PO BID PRN muscle spasm #10 09/17/22 tabs ibuprofen 600 mg tablet 600 mg PO Q6H PRN pain #20 tabs 09/17/22 oxycodone 5 mg tablet 5 mg PO Q6H PRN pain #14 tabs 09/17/22 prednisone 20 mg tablet 60 mg (3 x 20 mg) PO DAILY 3 days 09/17/22 #9 tabs cane #1 ea 09/19/22 lidocaine 5 % topical patch 2 patch topical DAILY pain 30 days 09/19/22 #30 ea walker #1 ea 09/19/22 cefuroxime axetil 500 mg tablet 500 mg PO BID #14 tabs 10/07/22 ondansetron 4 mg disintegrating 4 mg PO Q8H PRN nausea and 02/26/23 tablet vomiting #10 tabs neomycin 3.5 mg/g-polymyxin B 1 appl ophthalmic-Right QID #3.5 03/20/23 10,000 unit/g-dexameth 0.1 % eye grams oint (Maxitrol) timolol 0.25 % eye drops 1 drp ophthalmic (eye) BID #5 mL 03/20/23 Allergies Allergy/AdvReac Type Severity Reaction Status Date / Time No Known Allergies Allergy Verified 04/10/24 17:25 FORMERLY [facility], [facility] Past Medical History Medical History Asthma Bipolar disorder Bronchitis Chronic low back pain Cigarette smoker Gestational diabetes Hidradenitis suppurativa Morbid obesity with body mass index (BMI) of 50.0 to 59.9 in adult Tuberculosis Surgical History History of 2 sections Family History Family History Mother Diabetes mellitus Father Diabetes mellitus Sister Diabetes mellitus Social History Social History Alcohol intake: never Cigarettes Per Day: 4 Advance Directives: No Advance Directives Information Provided: No Physical Exam Vital Signs: Vital Signs: Last Vital Signs Temp 98 F 04/10/24 17:23 Pulse 95 04/10/24 17:23 Resp 18 04/10/24 17:23 BP 106/72 04/10/24 17:23 Pulse Ox 98 04/10/24 17:23 O2 Del Method Room Air 04/10/24 17:23 BMI result Body Mass Index 43.9 Course Course Course Narrative: This is a Rapid Medical Exam performed in triage by Apple Mock PA-C. Full HPI, ROS and PE to be performed by primary ED provider. 43 yo M w/PMHx obesity, smoker, spondylosis presenting to the ED c/o R sided low back pain radiating down RLE x yesterday morning. Admits slipped in the bathroom on wet floor, did not fall all the way to ground. Has been taking Motrin/Tylenol w/o relief. Also admits to growing right breast abscess x3 days. denies drainage, nipple d/c. denies incontinence or retention. PE: breast not evaluated in triage, +R lumbar MSK reproducible ttp. ambulating w/antalgic gait. No midline spinous ttp Plan: Pain control, full eval by ED provider Discharge Plan Discharge Clinical Impression: Low back pain Patient Disposition: Left W/O Completing Treatment Prescriptions: No Action cephalexin 500 mg capsule 500 mg PO Q6H 10 Days Qty: 40 0RF doxycycline hyclate 100 mg tablet 100 mg PO BID Qty: 20 0RF oxycodone 5 mg tablet 5 mg PO Q6H PRN (Reason: pain) Qty: 14 0RF Rx Instructions: Partial Fill upon patient request. diazepam [Valium] 5 mg tablet 5 mg PO BID PRN (Reason: muscle spasm) Qty: 10 0RF prednisone 20 mg tablet 60 mg PO DAILY 3 Days Qty: 9 0RF ibuprofen 600 mg tablet 600 mg PO Q6H PRN (Reason: pain) Qty: 20 0RF acetaminophen 500 mg capsule 1,000 mg PO Q8H PRN (Reason: pain) Qty: 30 0RF ondansetron 4 mg tablet,disintegrating 4 mg PO Q8H PRN (Reason: nausea and vomiting) Qty: 10 0RF neomycin-polymyxin B-dexameth [Maxitrol] 3.5 mg/g-10,000 unit/g-0.1 % ointment 1 appl ophthalmic-Right QID Qty: 3.5 0RF Rx Instructions: space evenly during waking hours timolol 0.25 % drops 1 drp ophthalmic (eye) BID Qty: 5 0RF cefuroxime axetil 500 mg tablet 500 mg PO BID Qty: 14 0RF albuterol sulfate 90 mcg/actuation aerosol powdr breath activated 2 inh inhalation Q4-6H PRN naloxone 4 mg/actuation spray,non-aerosol intranasal nicotine (polacrilex) 2 mg lozenge 2 mg PO Q2H PRN nicotine (polacrilex) 4 mg lozenge 4 mg PO Q2H PRN fluticasone propionate 50 mcg/actuation spray,suspension 1 - 2 spray intranasal DAILY PRN lidocaine 5 % adhesive patch,medicated 2 patch topical DAILY 30 Days Qty: 30 1RF (DME) cane Device See Rx Instructions .Route Qty: 1 0RF Rx Instructions: As directed (ANDRESSA) emily [facility] See Rx Instructions .Route Qty: 1 0RF Rx Instructions: As directed Discharge Date/Time: 04/10/24 22:22
[2024-04-10 17:23] VITALS: BP 106/72; PULSE 95; RESP 18; TEMP 36.6; O2SAT 98; BMI 43.9
--- NOTE | 2024-04-10 21:16 | PC.NURSE ---
no answer for triage reaasesment
--- NOTE | 2024-04-10 22:14 | PC.NURSE ---
T/w contacting pt. Per pt, she left at 1999.
== END 2024-04-10 22:22 | disposition left against medical advice (07) ==
LOC: HO.ED 22:20
PROVIDERS: Emergency Provider Emergency Medicine; PCP Internal Medicine Geriatric Medicine
DX: M54.50 Low back pain, unspecified (principal); F17.210 Nicotine dependence, cigarettes, uncomplicated
CPT/HCPCS: 99281

== ENCOUNTER 2024-10-14 15:07 | Outpatient (REF) | payer MEDICAID, SELFPAY ==
--- OUTSIDE RECORDS SUMMARY | 2024-10-14 17:09 | XMS_ITS | Encounter Summary ---
Author Organization [employer] Address [address] [facility] [address] [place] [address] Care Team Providers Care Director Of Radio Services Name Role Phone Leigh Self MD Primary Care Provider [phone] Baldomero Fuentes Unavailable Unavailable Name, Acosta VALE Primary Care Provider [phone] Reason for Visit * Reason Comments Med Refill Encounter Details Date Type Department Care Team (Late st Contact Info) Description 06/12/2023 Refill [facility] [address] [place] [address] Leigh Self MD [address] [place], [place] [phone] Lumbar spondylosis; Chronic bilateral low back pain, unspecified whether sciatica present Social History Tobacco Use Types Packs/Day Years Used Date Smoking Tobacco: Former Cigarettes Passive Smoke Exposure: Past Smokeless Tobacco: Never Alcohol Use Standard Drinks/Week Comments Never 0 (1 standard drink = 0.6 oz pur e alcohol) Depression Answer Date Recorded Patient Health Questionnaire-9 Score 17 05/22/2023 Patient Health Questionnaire-9 Score 17 05/22/2023 Last PHQ-9: Questionnaire Data Not on file 1 07/22/2022 Housing Stability Answer Date Recorded What is your housing situation today? I have angel luis watson 05/01/[address] you li ve. Do you have problems with any of the following? None of the above 05/01/2023 Food Insecurity Answer Date Recorded Within the past 12 months, y ou worried that your food would run out before you got money to buy more: Often true 05/01/2023 Within the past 12 months,th e food you bought just didn't last and you didn't have enough money to get more: Often true Transportation Answer Date Recorded In the past 12 months, has l ack of transportation kept you from medical appts, meetings, work or from getting things needed for daily living? Yes, it has kept me from medical appointments or getting medications. 2023 Utilities Answer Date Recorded In the past 12 months, has t he electric, gas, oil or water company threatened to shut off services in your home? No 05/01/2023 Depression Answer Date Recorded Patient Health Questionnaire-2 Score 4 05/22/2023 Comments Unknown Sex and Gender Information Value Date Recorded Sex Assigned at Female 05/16/2022 10:15 AM EDT Legal Sex Female 10:15 AM EDT Gender Identity Female 05/16/2022 10:15 AM EDT Sexual Orientation Choose not to disclose 2021 10:15 AM EDT documented as of this encounter Plan of Treatment Upcoming Encounters Date Type Department Care Team (Late st Contact Info) Description 01/08/2025 11:15 AM EDT Office Visit [facility] [address] [place] [phone] NameAcosta MD [address] [place] [phone] documented as of this encounter Visit Diagnoses Diagnosis Lumbar spondylosis Lumbosacral spondylosis without myelopathy Chronic bilateral low back pain, unspecified whether sciatica present documented in this encounter Additional Health Concerns Assessment Noted Time PHQ-9 Depression Total Score: 17 023 11:17 AM EST documented as of this encounter Care Teams Director Of Radio Services Relationship Specialty Start Date End Date Leigh Self MD [address] [place] [id number] PCP - General Family Medicine 11/17/22 09/10/23 Acosta Jerez MD [address] [place] [phone] PCP - General Internal Medicine 12/08/23 Baldomero Fuentes FNP [address] [place] [address] Nurse Practitioner Family Medicine 06/20/23 documented as of this encounter
--- OUTSIDE RECORDS SUMMARY | 2024-10-14 17:09 | XMS_ITS | Encounter Summary ---
Author Organization [employer] Address [address] [facility] 7t [place] [address] Care Team Providers Care Home Care Rn Name Role Phone Leigh Self MD Primary Care Provider [phone] Baldomero Fuentes Unavailable Unavailable NameAcosta MD Primary Care Provider [phone] Reason for Visit * Reason Comments Med Refill Encounter Details Date Type Department Care Team (Late Contact Info) Description 01/03/2023 Refill [facility] [address] [place] [address] Jolie Ojeda, ANP [address] [place] [address] Lumbar spondylosis; Chronic bilateral low back pain, unspecified whether sciatica present Social History Tobacco Use Types Packs/Day Years Used Date Smoking Tobacco: Former Cigarettes Passive Smoke Exposure: Past Smokeless Tobacco: Never Alcohol Use Standard Drinks/Week Comments Never 0 (1 standard drink = 0.6 oz pur e alcohol) Comments Unknown Sex and Gender Information Value Date Recorded Sex Assigned at Female 05/16/2022 10:15 AM EDT Legal Sex Female 10:15 AM EDT Gender Identity Female 05/16/2022 10:15 AM EDT Sexual Orientation Choose not to disclose 2021 10:15 AM EDT COVID-19 Exposure Response Date Recorded In the last 10 days, have yo u been in contact with someone who was confirmed or suspected to have Coronavirus/COVID-19? No / Unsure 12/13/2022 9:54 AM EDT documented as of this encounter Plan of Treatment Upcoming Encounters Date Type Department Care Team (Late Contact Info) Description 01/08/2025 11:15 AM EDT Office Visit [facility] [address] [place] [address] Name, MD Acosta [address] [place] [address] documented as of this encounter Visit Diagnoses Diagnosis Lumbar spondylosis Lumbosacral spondylosis without myelopathy Chronic bilateral low back pain, unspecified whether sciatica present documented in this encounter Additional Health Concerns Assessment Noted Time PHQ-9 Depression Total Score: 16 023 11:30 AM EDT documented as of this encounter Care Teams Home Care Rn Relationship Specialty Start Date End Date Leigh Self MD [address] [place] [phone] PCP - General Family Medicine 11/17/22 09/10/23 Name, MD Acosta [address] [place] [phone] PCP - General Internal Medicine 12/08/23 Baldomero Fuentes FNP [address] [place] [address] Nurse Practitioner Family Medicine 06/20/23 documented as of this encounter
--- OUTSIDE RECORDS SUMMARY | 2024-10-14 17:09 | XMS_ITS | Encounter Summary ---
Author Organization [employer] Address [address] [facility] [address] [place] [address] Care Team Providers Care Hydraulic Corrugating Machine Operator Name Role Phone Leigh Self MD Primary Care Provider [phone] Baldomero Fuentes Unavailable Unavailable Name, Acosta VALE Primary Care Provider [phone] Encounter Details Date Type Department Care Team (Late st Contact Info) Description 04/19/2023 Orders Only [facility] [address] [place] [phone] Leigh Self MD [address] [place] [address] [phone] Glaucoma, unspecified glaucoma type, unspecified laterality (Primary Dx); Pain in eye, unspecified laterality Social History Tobacco Use Types Packs/Day Years Used Date Smoking Tobacco: Former Cigarettes Passive Smoke Exposure: Past Smokeless Tobacco: Never Alcohol Use Standard Drinks/Week Comments Never 0 (1 standard drink = 0.6 oz pur e alcohol) Depression Answer Date Recorded Patient Health Questionnaire-9 Score 19 04/06/2023 Depression Answer Date Recorded Patient Health Questionnaire-2 Score 6 04/06/2023 Comments Unknown Sex and Gender Information Value [...] Description 01/08/2025 11:15 AM EDT Office Visit [facility] [address] [place] [phone] Name, MD Acosta [address] [place] [address] documented as of this encounter Visit Diagnoses Diagnosis Glaucoma, unspecified glaucoma type, unspecified laterality- Primary Pain in eye, unspecified laterality documented in this encounter Additional Health Concerns Assessment Noted Time PHQ-9 Depression Total Score: 19 023 11:00 AM EDT documented as of this encounter Care Teams Hydraulic Corrugating Machine Operator Relationship Specialty Start Date End Date Leigh Self MD [address] [place] [phone] PCP - General Family Medicine 11/17/22 09/10/23 NameAcosta MD [address] [place] [phone] PCP - General Internal Medicine 12/08/23 Baldomero Fuentes FNP [address] [place] [phone] Nurse Practitioner Family Medicine 06/20/23 documented as of this encounter
--- OUTSIDE RECORDS SUMMARY | 2024-10-14 17:09 | XMS_ITS | Encounter Summary ---
Author Organization [employer] Address [address] [facility] [address] [place] [address] Care Team Providers Care Research Editor Name Role Phone Baldomero Fuentes Unavailable Unavailable Name, Acosta VALE Primary Care Provider [phone] Reason for Visit * Reason Comments Med Refill Encounter Details Date Type Department Care Team (Late st Contact Info) Description 09/25/2024 Refill [facility] [address] [place] [address] AjErin, OD [address] [place] [address] Social History Tobacco Use Types Packs/Day Years Used Date Smoking Tobacco: Every Day Cigarettes Passive Smoke Exposure: Past Smokeless Tobacco: Never Alcohol Use Standard Drinks/Week Comments Never 0 (1 standard drink = 0.6 oz pur e alcohol) Depression Answer Date Recorded Patient Health Questionnaire-9 Score 14 08/08/2023 Patient Health Questionnaire-9 Score 14 08/08/2023 Last PHQ-9: Questionnaire Data Not on file 0 08/08/2023 Housing Stability Answer Date Recorded What is your housing situation today? I have angel luis watson 12/08/[address] you li ve. Do you have problems with any of the following? None of the above 12/08/2023 Food Insecurity Answer Date Recorded Within the past 12 months, y ou worried that your food would run out before you got money to buy more: Often true 12/08/2023 Within the past 12 months,th e food you bought just didn't last and you didn't have enough money to get more: Often true Transportation Answer Date Recorded In the past 12 months, has l ack of transportation kept you from medical appts, meetings, work or from getting things needed for daily living? Yes, it has kept me from medical appointments or getting medications. 12/08/2023 Utilities Answer Date Recorded In the past 12 months, has t he electric, gas, oil or water company threatened to shut off services in your home? No 12/08/2023 Depression Answer Date Recorded Patient Health Questionnaire-2 Score 6 08/08/2023 Comments Unknown Sex and Gender Information Value [...] Description 01/08/2025 11:15 AM EDT Office Visit [facility] [address] [place] [phone] Name, MD Acosta [address] [place] [phone] documented as of this encounter Visit Diagnoses Not on filedocumented in this encounter Additional Health Concerns Assessment Noted Time PHQ-9 Depression Total Score: 14 024 11:32 AM EST documented as of this encounter Care Teams Research Editor Relationship Specialty Start Date End Date NameAcosta MD [address] [place] [phone] PCP - General Internal Medicine 12/08/23 Baldomero Fuentes FNP Nurse Practitioner Family Medicine 06/20/23 documented as of this encounter
--- OUTSIDE RECORDS SUMMARY | 2024-10-14 17:09 | XMS_ITS | Encounter Summary ---
Author Organization [employer] Address [address] [facility] [address]t [place] [address] Care Team Providers Care Skin Grader Name Role Phone Leigh Self MD Primary Care Provider [phone] Baldomero Fuentes Unavailable Unavailable Name, Acosta VALE Primary Care Provider [phone] Reason for Visit * Reason Onset Date Comments FYI 08/11/2023 Encounter Details Date Type Department Care Team ([facility] st Contact Info) Description 08/11/2023 Telephone [facility] [address] [place], [place] [phone] Leigh Self MD [address] [place], [place] [phone] FY Social History Tobacco Use Types Packs/Day Years [...] AM EDT documented as of this encounter Miscellaneous Notes * Telephone Encounter - Medina Marquez - 08/11/2023 9:33 AM EST TC from Monica with [facility] supervisor photoengraving calling to inform they will be screening pt out . All of pt evacuation will be faxed over to provided fax # [phone]. Any question contact phone # [phone] documented in this encounter Plan of Treatment Upcoming Encounters Date Type Department Care Team (Late st Contact Info) Description 01/08/2025 11:15 AM EDT Office Visit [facility] [address] [place] [address] Name, MD Acosta [address] [place] [address] documented as of this encounter Visit Diagnoses Not on filedocumented in this encounter Additional Health Concerns Assessment Noted Time PHQ-9 Depression Total Score: 14 024 11:32 AM EST documented as of this encounter Care Teams Skin Grader Relationship Specialty Start Date End Date Leigh Self MD [address] [place] [address] PCP - General Family Medicine 11/17/22 09/10/23 Name, MD Acosta [address] [place] [address] PCP - General Internal Medicine 12/08/23 Baldomero Fuentes FNP [address] [place] [address] Nurse Practitioner Family Medicine 06/20/23 documented as of this encounter
--- OUTSIDE RECORDS SUMMARY | 2024-10-14 17:09 | XMS_ITS | Encounter Summary ---
Author Organization [employer] Address [address] [facility] 7t [place] [address] Care Team Providers Care Machine Printer Hose Name Role Phone Eboni Cannon Primary Care Provider [phone] Leigh Self MD Primary Care Provider [phone] Baldomero Fuentes Unavailable Unavailable Name, Acosta VALE Primary Care Provider [phone] Reason for Visit * Reason Comments Med Refill Encounter Details Date Type Department Care Team (Late st Contact Info) Description 09/08/2022 Refill [facility] [address] [place] [address] Eboni Cannon FNP [address] [place], [place] [phone] Pain Social History Tobacco Use Types Packs/Day Years Used Date Smoking Tobacco: Former Cigarettes Smokeless Tobacco: Never Alcohol Use Standard Drinks/Week [...] suspected to have Coronavirus/COVID-19? No / Unsure 09/06/2022 12:24 PM EST documented as of this encounter Plan of Treatment Upcoming Encounters Date Type Department Care Team (Late st Contact Info) Description 01/08/2025 11:15 AM EDT Office Visit [facility] [address] [place] [address] [place] [address] documented as of this encounter Visit Diagnoses Diagnosis Pain Generalized pain documented in this encounter Additional Health Concerns Assessment Noted Time PHQ-9 Depression Total Score: 21 022 3:41 PM EST documented as of this encounter Care Teams Machine Printer Hose Relationship Specialty Start Date End Date Ebon[place] [address] PCP - General Family Medicine 03/14/22 10/04/22 Leigh Self MD [address] [place] [address] PCP - General Family Medicine 11/17/22 09/10/23 Name, MD Acosta [address] [place] [address] PCP - General Internal Medicine 12/08/23 Baldomero Fuentes FNP [address] [place] [address] Nurse Practitioner Family Medicine 06/20/23 documented as of this encounter
--- OUTSIDE RECORDS SUMMARY | 2024-10-14 17:09 | XMS_ITS | Encounter Summary ---
Author Organization [employer] Address [address] [facility] 7t [place] [address] Care Team Providers Care Bottom Liner Name Role Phone Leigh Self MD Primary Care Provider [phone] Baldomero Fuentes Unavailable Unavailable Name, Acosta VALE Primary Care Provider [phone] Reason for Visit * Reason Onset Date Comments Results 01/09/2023 Encounter Details Date Type Department Care Team ([facility] st Contact Info) Description 01/09/2023 Telephone [facility] [address] [place], [place] [phone] Leigh Self MD [address] [place], [place] [phone] Results Social History Tobacco Use Types Packs/Day Years [...] encounter Miscellaneous Notes * Telephone Encounter - Jeremias Olivares RN - 01/09/2023 3:56 PM EDT Noted. Thanks. * Telephone Encounter - Terence Bansal - 01/09/2023 9:12 AM EDT Tc from pt requesting results from lab results done last week. Please contact pt at [phone] documented in this encounter Plan of Treatment Upcoming Encounters Date Type Department Care Team (Late st Contact Info) Description 01/08/2025 11:15 AM EDT Office Visit [facility] [address] [place] [phone] NameAcosta MD [address] [place] [address] documented as of this encounter Visit Diagnoses Not on filedocumented in this encounter Additional Health Concerns Assessment Noted Time PHQ-9 Depression Total Score: 16 023 11:30 AM EDT documented as of this encounter Care Teams Bottom Liner Relationship Specialty Start Date End Date Leigh Self MD [address] [place] [phone] PCP - General Family Medicine 11/17/22 09/10/23 NameAcosta MD [address] [place] [address] PCP - General Internal Medicine 12/08/23 Baldomero Fuentes FNP [address] [place] [address] Nurse Practitioner Family Medicine 06/20/23 documented as of this encounter
--- OUTSIDE RECORDS SUMMARY | 2024-10-14 17:09 | XMS_ITS | Encounter Summary ---
Author Organization [employer] Address [address] [facility] 7t [place] [address] Care Team Providers Care Streetcar Motorman Name Role Phone GinaLuisroopa OSPINA Unavailable Unavailable Name, Acosta VALE Primary Care Provider Reason for Visit * Reason Onset Date Comments Med Refill 02/13/2024 Encounter Details Date Type Department Care Team ([facility] st Contact Info) Description 02/13/2024 Refill [facility] [address] [place], [place] [phone] Name, MD Acosta [address] [place] [address] Morbid obesity with BMI of 45.0-49.9, adult (CMS/HCC) Social History Tobacco Use Types Packs/Day Years [...] Visit [facility] [address] [place] [phone] Name, MD Acosta [address] [place] [address] documented as of this encounter Visit Diagnoses Diagnosis Morbid obesity with BMI of 45.0-49.9, adult (CMS/HCC) documented in this encounter Additional Health Concerns Assessment Noted Time PHQ-9 Depression Total Score: 14 024 11:32 AM EST documented as of this encounter Care Teams Streetcar Motorman Relationship Specialty Start Date End Date NameAcosta MD [address] [place] [phone] PCP - General Internal Medicine 12/08/23 Baldomero Fuentes FNP Nurse Practitioner Family Medicine 06/20/23 documented as of this encounter
--- OUTSIDE RECORDS SUMMARY | 2024-10-14 17:09 | XMS_ITS | Encounter Summary ---
Author Organization [employer] Address [address] [facility] 7t [place] [address] Care Team Providers Care Business Performance Specialist Name Role Phone Leigh Self MD Primary Care Provider [phone] Baldomero Fuentes Unavailable Unavailable Name, Acosta VALE Primary Care Provider [phone] Reason for Visit * Reason Comments Med Refill Encounter Details Date Type Department Care Team (Late st Contact Info) Description 06/01/2023 Refill [facility] [address] [place], [place] [phone] Leigh Self MD [address] [place], [place] [phone] Chronic bilateral low back pain, unspecified whether [...] Description 01/08/2025 11:15 AM EDT Office Visit [facility] [address] [place] [phone] NameAcosta MD [address] [place] [phone] documented as of this encounter Visit Diagnoses Diagnosis Chronic bilateral low back pain, unspecified whether sciatica present documented in this encounter Additional Health Concerns Assessment Noted Time PHQ-9 Depression Total Score: 17 023 11:17 AM EST documented as of this encounter Care Teams Business Performance Specialist Relationship Specialty Start Date End Date Leigh Self MD [address] [place] [address] PCP - General Family Medicine 11/17/22 09/10/23 Acosta Jerez MD [address] [place] [phone] PCP - General Internal Medicine 12/08/23 Baldomero Fuentes FNP [address] [place] [address], [place] [address] Nurse Practitioner Family Medicine 06/20/23 documented as of this encounter
--- OUTSIDE RECORDS SUMMARY | 2024-10-14 17:09 | XMS_ITS | Clinical Summary ---
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 irritability with increased Seroquel 100 mg, without improved sleep. Also worsened mood with Gabapentin 300 mg BID. She is still having hallucinations despite Zyprexa 5 mg in am and 20 mg at bedtime. Explained that this was a high dose and we would not increase. Did find the Topiramate somewhat helpful for mood, and will now increase to Topiramate 100 mg BID. Clonidine did not help anxiety or sleep. Will stop the morning dose, then a few days later also stop the bedtime dose. For crisis, SI, unable to function, call Crisis or seek care at [facility] as needed, do NOT attempt to call this provider for emergency support. Today 05/22/2023 provider informed pt that I would be retiring within the next year of so, and recommend she establish care with therapist and then psychiatric prescriber at outpatient agency. She is agreeable to referral at this time. F/U with me in 6 weeks. She agrees with the plan. Assessment & Plan (04/06/2023 12:03 PM EDT): Also high likelihood BPD. With irritability, decreased need for sleep. 2 of her children suspected BPD. Supported by lack of efficacy of antidepressants. Long hx mental health treatment, never particularly helpful. Auditory hallucinations, nightmares. Reported NOVOA with Lamotrigine, worsened irritability with increased Seroquel 100 mg, without improved sleep. Also worsened mood with Gabapentin 300 mg BID. She is still not doing well. Visual hallucinations persist, possibly increased at night. Anxiety, irritability. She has apparently run out of medications (although refills should have been available.). Will add Clonidine 0.1 mg at bedtime then BID, cautioned about dizziness. Resume Topiramate 50 mg BID. Resume Zyprexa 5 mg in am, Zyprexa 20 mg at bedtime. For crisis, SI, unable to function, call Crisis or seek care at [facility] as needed, do NOT attempt to call this provider for emergency support. F/U with me in 3-4 weeks. She agrees with the plan. Assessment & Plan (01/10/2023 12:44 PM EDT): Also high likelihood BPD. With irritability, decreased need for sleep. 2 of her children suspected BPD. Supported by lack of efficacy of antidepressants. Long hx mental health treatment, never particularly helpful. Auditory hallucinations, nightmares. Reported NOVOA with Lamotrigine, worsened irritability with increased Seroquel 100 mg, without improved sleep. Also worsened mood with Gabapentin 300 mg BID. She is still not doing well. Visual hallucinations persist. Labs of 12/29/2022 showed Depakote undetectable, no other concerns. At this time she will stop Depakote ER 500 mg once daily. Tolerating starting dose of Topiramate And will now increase to Topiramate 50 mg BID. Continue Zyprexa 5 mg in am, Zyprexa 20 mg at bedtime. For crisis, SI, unable to function, call Crisis or seek care at [facility] as needed, do NOT attempt to call this provider for emergency support. F/U with me in 6 weeks. She agrees with the plan. Assessment & Plan (11/28/2022 12:35 PM EDT): Also high likelihood BPD. With irritability, decreased need for sleep. 2 of her children suspected BPD. Supported by lack of efficacy of antidepressants. Long hx mental health treatment, never particularly helpful. Auditory hallucinations, nightmares. Reported NOVOA with Lamotrigine, worsened irritability with increased Seroquel 100 mg, without improved sleep. Also worsened mood with Gabapentin 300 mg BID. She is still not doing well, mood is not stable. Gaining weight (which may be r/t Zyprexa and/or Depakote). She has not been able to get the regular blood test monitoring required for Depakote treatment. At this time she will decrease to Depakote ER 500 mg once daily. Will start Topiramate 25 mg once daily for 1 week then BID. She will not start Duloxetine as it is likely to be destabilizing of her mood, similar to the other antidepressants she has previously tried. Continue Zyprexa 5 mg in am, Zyprexa 20 mg at bedtime. For crisis, SI, unable to function, call Crisis or seek care at [facility] as needed, do NOT attempt to call this provider for emergency support. F/U with me in 4-6 weeks. She agrees with the plan. Assessment & Plan (10/20/2022 12:10 PM EDT): Also high likelihood BPD. With irritability, decreased need for sleep. 2 of her children suspected BPD. Supported by lack of efficacy of antidepressants. Long hx mental health treatment, never particularly helpful. Auditory hallucinations, nightmares. Reported NOVOA with Lamotrigine, worsened irritability with increased Seroquel 100 mg, without improved sleep. Also worsened mood with Gabapentin 300 mg BID. Although she says she doesn't notice any difference, her presentation today is significantly improved, calmer, brighter affect. Will now add Zyprexa 5 mg in am, continue Zyprexa 20 mg at bedtime. Continue Depakote ER 500 mg twice daily. Check labs. For crisis, SI, unable to function, call Crisis or seek care at [facility] as needed, do NOT attempt to call this provider for emergency support. Will also refer for BE by integrated clinician. F/U with me in 3 weeks. She agrees with the plan. Resolved Problems Problem Noted Date Diagnosed Date Resolved Date Decreased movement 05/03/2023 05/03/2023 Left against medical advice 05/03/2023 05/03/2023 05/24/2023 Bipolar affective disorder in remission 07/11/2022 07/11/2022 Gallstone 08/21/2015 12/18/2022 Obesity 02/09/2012 12/09/2023 Encounters Date Type Department Care Team Description 10/04/2024 Orders Only [facility] [address] [place] [address] Erin Rocha, OD Acute angle-closure glaucoma of right eye (Primary Dx); Chronic angle-closure glaucoma of both eyes, severe stage 09/27/2024 Population Health [facility] () Department [address] [place] [phone] Provider, Population Health Generic 09/25/2024 Refill [facility] [address] [place] [address] Erin Rocha, OD 09/25/2024 Refill [facility] [address] [place] [address] Acosta Jerez MD 09/19/2024 Refill [facility] [address] [place] [address] Acosta Jerez MD Bipolar 2 disorder ([facility]) 09/19/2024 Refill [facility] [address] [place] [address] Erin Rocha, OD 09/17/2024 Refill [facility] [address] [place] [address] Acosta Jerez MD Pain in right knee; Spondylosis without myelopathy or radiculopathy, lumbar region 09/13/2024 Refill [facility] [address] [place] [address] Katie Hardy NP 09/13/2024 Refill [facility] [address] [place] [address] Marti Rasheed MD Chronic bilateral low back pain, unspecified whether sciatica present 08/28/2024 Refill [facility] [address] [place] [address] Katie Hardy NP 08/26/2024 1:45 PM EST Office Visit [facility] [address] [place] [phone] Acosta Jerez MD Morbid obesity with body mass index (BMI) of 50.0 to 59.9 in adult ([facility]) (Primary Dx); Chronic bilateral back pain, unspecified back location 08/26/2024 Telephone [facility] [address] [place] [phone] Acosta Jerez MD Prior Authorization ([employer]) 08/26/2024 Travel 08/15/2024 Refill [facility] [address] [place] [address] Acosta Jerez MD 07/22/2024 Refill [facility] [address] [place], [place] [phone] Acosta Jerez MD 07/21/2024 Refill [facility] [address] [place], [place] [phone] Acosta Jerez MD Chronic bilateral low back pain, unspecified whether sciatica present 07/19/[address] [address] Mayelin Spear, VALENTINE from Last 3 Months Immunizations Name Administration Dates Next Due DTP 1981,1981,1981 DTaP 11/14/1985 Hep B, Adolescent or Pediatric 05/23/2011,1996 Hep B, adult 09/19/1996 IPV 11/14/1985, 2,1981,05/18 Influenza, IIV3, injectable 05/23/2011 MMR 06/18/1993,06/23/1987 Pfizer Covid-19 Vaccine 12+ 10/29/2021 Pfizer Covid-19 Vaccine 12+ jonelle-sucrose (Bolanos Cap) 10/29/2021 Pneumococcal Polysaccharide PPSV23 11/15/2010 Pneumococcal, Unspecified 11/15/2010 TD (adult), 2 Lf tetanus tox oid, preservative free, adsorbed 09/14/1988,08/17/1987,06/16/1987 Tdap 11/15/2010 Family History Medical History Relation Name Comments Diabetes Mother Obesity Mother Diabetes Sister Relation Name Status Comments Mother Sister Social History Tobacco Use Types Packs/Day Years Used Date Smoking Tobacco: Every Day Cigarettes Passive Smoke Exposure: Past Smokeless Tobacco: Never Tobacco Cessation:Ready to Q uit: Not Asked; Counseling Given: Not Answered Alcohol Use Standard Drinks/Week Comments Never 0 (1 standard drink = 0.6 oz pur e alcohol) Depression Answer Date Recorded Patient Health Questionnaire-9 Score 14 08/08/2023 Patient Health Questionnaire-9 Score 14 08/08/2023 Last PHQ-9: Questionnaire Data Not on file 0 08/08/2023 Housing Stability Answer Date Recorded What is your housing situation today? I have angel luisdavina watson 12/08/[address] you [...] not to disclose 2021 10:15 AM EDT Last Filed Vital Signs Vital Sign Reading Time Taken Comments Blood Pressure 91/54 08/26/2024 1:33 PM EST Pulse 88 08/26/2024 1:33 PM EST Temperature 36.6 ??C (97.8 ??F) 08/26/2024 1:33 PM ES T Respiratory Rate 18 08/26/2024 1:33 PM EST Oxygen Saturation 99% 08/26/2024 1:33 PM EST Inhaled Oxygen Concentration - - Weight 122 kg (269 lb 6.4 oz) 08/26/2024 1:33 PM EST Height 154.9 cm (5' 0.98 ) 12/08/2023 1:02 PM ED T Body Mass Index 50.94 12/08/2023 1:02 PM EDT Plan of Treatment Upcoming Encounters Date Type Department Care Team (Late st Contact Info) Description 01/08/2025 11:15 AM EDT Office Visit [facility] [address] [place] [address] Name, MD Acosta [address] [place] [address] Health Maintenance Due Date Last Done Comments Alcohol/Substance Use Screening 1993 Family Planning (PISQ) 1996 Pap Smear 2002 Cervical Cancer Screening 2011 HPV/Cotest 2011 Hepatitis B Vaccines (3 of 3 - 3-dose series) 07/18/2011 05/23/2011, 10/23/1996, 09/19/1996 Pneumococcal Vaccine: Pediatrics (0 to 5 Years) and At-Risk Patients (6 to 49) Years) (2 of 2 - PCV) 11/16/2011 11/15/2010, 11/15/2010 DTaP/Tdap/Td Vaccines (6 - Td or Tdap) 11/15/2020 11/15/2010, 09/14/1988, 08/17/1987, Additional history exists Mammogram 2021 Depression Monitoring (PHQ-9) 02/06/2024 08/08/2023, 08/08/2023 COVID-19 Vaccine ( - season) 2024 10/29/2021, 10/29/2021 Influenza Vaccine (#1) 2024 05/23/2011 Depression Screening 08/08/2024 08/08/2023, 08/08/19 24 Diabetes: Hemoglobin A1C 12/07/2024 024, 12/29/2022, 07/29/2022, Additional history exists SDOH Screening 12/07/2024 12/08/2023 Tobacco Screening 12/20/2024 12/21/2023 Lipid Panel 12/07/2028 12/08/2023, 01/07/2022 Zoster Vaccines (1 of 2) 2031 RSV Patients and Patients Aged 60 years or older (1 - 1-dose 75+ series) 2056 IPV Vaccines Completed 11/14/1985, 07/1981, 1981, Additional history exists HIV Screening Completed 12/29/2022 Hepatitis C Screening Completed 12/29/2022 HIB Vaccines Aged Out No longer eligi ble based on patient's age to complete this topic HPV Vaccines Aged Out No longer eligi ble based on patient's age to complete this topic Hepatitis A Vaccines Aged Out No long er eligible based on patient's age to complete this topic Meningococcal Vaccine Aged Out No kalyn amparo eligible based on patient's age to complete this topic RSV under 20 months Aged Out No longe r eligible based on patient's age to complete this topic Rotavirus Vaccines Aged Out No longer eligible based on patient's age to complete this topic Procedures Procedure Name Priority Date/Time Associated Diagnosis Comments HEMOGLOBIN A1C Routine 12/08/2023 1:41 PM EDT Prediabetes LIPID PANEL WITH REFLEX TO DIRECT LDL Routine 12/08/2023 1:41 PM EDT Morbid obesity with body mass index (BMI) of 50.0 to 59.9 in adult (CMS/HCC) HEPATITIS C AB W/REFL TO HCV RNA, QN, PCR Routine 12/29/2022 2:21 PM EDT HIV 1/2 ANTIGEN/ANTIBODY, FOURTH GENERATION W/RFL Routine 12/29/2022 2:21 PM EDT from Last 3 Months or Most Recently Relevant to Health Maintenance Results * Lipid Panel with Reflex to Direct LDL (12/08/2023 1:41 PM EDT) Triglycerides 105 <150 mg/dL [facility] Comment:Desirable Triglyceri de: less than 150 mg/dLBorderline High Triglyceride 150-199 mg/dLHigh Triglyceride: 200-499 mg/dLVery High Triglyceride: greater than or equal to 5OO mg/dL Cholesterol 160 <200 mg/dL [facility] Comment:Desirable Cholestero l: less than 200 mg/dLBorderline High Cholesterol: 200-239 mg/dLHigh Cholesterol: greater than 239 mg/dL LDL Cholesterol Calculated 95 <100 mg/dL [facility] Comment:Desirable LDL: less than 100 mg/dLNear Optimal/Above Optimal LDL: 110- 129 mg/dLBorderline High LDL: 130-159 mg/dLHigh LDL: 160-189 mg/dLVery High LDL: greater than or equal to 190 mg/dL HDL Cholesterol 44 >40 mg/dL [facility] Comment:Desirable HDL: great er than 40 mg/dL Note: This HDL assay may give artificially low results in patients with liver disease. Blood 12/08/2023 1:41 PM EDT 12/08/2023 4:08 PM EDT us Leigh Self MD LAB BLOOD ORDERABLES Final Resul t [facility] [address] [place] [phone] * Hemoglobin A1c (12/08/2023 1:41 PM EDT) Hemoglobin A1c 5.5 <6.0 % [facility] Comment:Hemoglobin A1C Refer ence Range Adults: 4.8 - 6.0 % Non diabetic: < 6.0 % Goal: < 7.0 %Additional Action Suggested: > 8.0 %Note: Hemoglobin A1c results are invalid for patients with abnormal amounts of HbF. Blood transfusions may impact the HbA1c concentration in the patient sample. Estimated Average Glucose 111 mg/dL [facility] Comment:eAG = Estimated ave rage glucose which is %A1C expressed asaverage glucose, using the formula of the X5A-EwmkyywAjyyvcx Glucose study (ADAG), Diabetes Care, Vol.31,#8,Feb. 2007 Blood Venous blood specimen / Unknown 12/08/2023 1:41 PM EDT 12/08/2023 4:08 PM EDT Leigh Self MD LAB BLOOD ORDERABLES Final Resul t [facility] [address] [place] [phone] * Hepatitis C Antibody with Reflex to HCV, RNA, Quantitative, Real-Time PCR (12/29/2022 2:21 PM EDT) Hepatitis C Antibody NON-REACT MACKENZIE NON-REACT MACKENZIE [facility] Index 0.14 <1.00 [facility] Comment: HCV antibody was non-reactive. There is no laboratory evidence of HCV infection. In most cases, no further action is required. However, if recent HCV exposure is suspected, a test for HCV RNA (test code 92264) is suggested. For additional information please refer to http://education.Telerivet/faq/SMW93s8 (This link is being provided for informational/ educational purposes only.) 12/29/2022 2:21 PM EDT 12/29/2022 2:22 PM EDT Narrative [facility] - 12/30/2022 6:11 PM EDT FASTING:NO FASTING: NO Baldomero Fuentes [facility] LAB BLOOD ORDERABLES Final Res ult Performing Organization Address City/[facility]/ZIP Co de Phone Number [facility] [address], [place] [address] [facility] [address] [place] [address] * HIV-1/2 Antigen and Antibodies, Fourth Generation, with Reflexes (12/29/2022 2:21 PM EDT) HIV Antigen/Antibody, 4th Generation NON-REAC TIVE NON-REAC TIVE [facility] Comment: HIV-1 antigen and HIV-1/HIV-2 antibodies were not detected. There is no laboratory evidence of HIV infection. PLEASE NOTE: This information has been disclosed to you from records whose confidentiality may be protected by state law. ??If your state requires such protection, then the state law prohibits you from making any further disclosure of the information without the specific written consent of the person to whom it pertains, or as otherwise permitted by law. A general authorization for the release of medical or other information is NOT sufficient for this purpose. ?? For additional information please refer to http://education.Telerivet/faq/RXS325 (This link is being provided for informational/ educational purposes only.) The performance of this assay has not been clinically validated in patients less than 2 years old. 12/29/2022 2:21 PM EDT 12/29/2022 2:22 PM EDT Narrative [facility] - 12/30/2022 6:11 PM EDT FASTING:NO FASTING: NO Baldomero Fuentes [facility] LAB BLOOD ORDERABLES Final Res ult [facility] [address], [place] [address] [facility] [address] [place] [phone] from Last 3 Months or Most Recently Relevant to Health Maintenance Insurance [facility] C3 * Guarantor: Lynsey Casas Account Type Relation to Patient Date of Phone Billing Address Personal/Family Self [address] Care Teams Safety Relief Valve Technician Relationship Specialty Start Date End Date Name, MD Acosta [address] [place] [phone] PCP - General Internal Medicine 12/08/23 Baldomero Fuentes FNP Nurse Practitioner Family Medicine 06/20/23
--- OUTSIDE RECORDS SUMMARY | 2024-10-14 17:09 | XMS_ITS | Encounter Summary ---
Author Organization [employer] Address [address] [facility] [address] [place] [address] Care Team Providers Care Animal Control Officer Name Role Phone Leigh Self MD Primary Care Provider [phone] Baldomero Fuentes Unavailable Unavailable Acosta Jerez MD Primary Care Provider [phone] Reason for Visit * Reason Comments Med Refill Encounter Details Date Type Department Care Team ([facility] Contact Info) Description 01/02/2023 Refill [facility] [address] [place], [place] [phone] Baldomero Fuentes FNP Bipolar 2 disorder (CMS/[facility]) Social History Tobacco Use Types Packs/Day Years [...] Upcoming Encounters Date Type Department Care Team ([facility] Contact Info) Description 01/08/2025 11:15 AM EDT Office Visit [facility] [address] [place], [place] [phone] Name, MD Acosta [address] [place] [phone] documented as of this encounter Visit Diagnoses Diagnosis Bipolar 2 disorder (CMS/HCC) Other bipolar disorders documented in this encounter Additional Health Concerns Assessment Noted Time PHQ-9 Depression Total Score: 16 023 11:30 AM EDT documented as of this encounter Care Teams Animal Control Officer Relationship Specialty Start Date End Date Leigh Self MD [address] [place] [address] PCP - General Family Medicine 11/17/22 09/10/23 NameAcosta MD [address] [place] [address] PCP - General Internal Medicine 12/08/23 Baldomero Fuentes FNP [address] [place] [address] Nurse Practitioner Family Medicine 06/20/23 documented as of this encounter
--- OUTSIDE RECORDS SUMMARY | 2024-10-14 17:09 | XMS_ITS | Encounter Summary ---
Author Organization [employer] Address [address] [place] [address] Care Team Providers Care Data Security Consultant Name Role Phone Baldomero Fuentes Unavailable Unavailable Name, Acotsa VALE Primary Care Provider [phone] Reason for Visit * Reason Comments Med Refill Encounter Details Date Type Department Care Team ([facility] st Contact Info) Description 08/28/2024 Refill [facility] [address] [place] [address] Katie Hardy, ERIC [address] [place] [address] Social History Tobacco Use Types Packs/Day Years [...] housing situation today? I have angel luis wtason 12/08/[address] you li [...] Description 01/08/2025 11:15 AM EDT Office Visit [facility] [address] [place] [phone] Name, MD Acosta [address] [place] [phone] documented as of this encounter Visit Diagnoses Not on filedocumented in this encounter Additional Health Concerns Assessment Noted Time PHQ-9 Depression Total Score: 14 024 11:32 AM EST documented as of this encounter Care Teams Data Security Consultant Relationship Specialty Start Date End Date NameAcosta MD [address] [place] [address] PCP - General Internal Medicine 12/08/23 Baldomero Fuentes FNP Nurse Practitioner Family Medicine 06/20/23 documented as of this encounter
--- OUTSIDE RECORDS SUMMARY | 2024-10-14 17:09 | XMS_ITS | Encounter Summary ---
Author Organization [employer] Address 75 [facility] 7t [place] [address] Care Team Providers Care Manager Enterprise Name Role Phone Eboni Cannon Primary Care Provider [phone] Leigh Self MD Primary Care Provider [phone] Baldomero Fuentes Unavailable Unavailable Name, Acosta VALE Primary Care Provider [phone] Reason for Visit * Reason Onset Date Comments Med Refill Percocet Denied 08/23/2022 Notified of Perc ocet not being refilled Encounter Details Date Type Department Care Team (Late st Contact Info) Description 08/23/2022 Refill [facility] [address] [place] [address] Eboni Cannon FNP [address] [place], [place] [phone] Chronic bilateral low back pain, unspecified whether sciatica present; Lumbar spondylosis Social History Tobacco Use Types Packs/Day Years [...] suspected to have Coronavirus/COVID-19? No / Unsure 08/16/2022 1:06 PM EST documented as of this encounter Miscellaneous Notes * Telephone Encounter - Eliana Romo RN - 08/24/2022 9:27 AM EST TC to pt. Pt notified of PCP plan to begin Celebrex. Instructed that she should not use Ibuprofen /Motrin while taking Celebrex medication. Encouraged pt to stay open minded about trying this new medication. Also reminded pt that she has an appt with PCP 09/06/22 and if she feels like Celebrex is not sufficient she can discuss with PCP at that time. Pt was upset but said. 'ok.' Also reminded pt that the original plan was for her to attend pain management clinic apt 08/23/22 and she cancelled thatappt. Encouraged her to attend pain management appt and f/u with PCP 09/06/22 if she stills feels like she's not gotten adequate pain relief. Pt stated 'ok.' * Telephone Encounter - Eliana Romo RN - 08/24/2022 8:19 AM EST TC to pt, pt notified of PCP's response regarding refill of Percocet. Reminded pt that PCP had instructed her that she does not have dx to support roasterman usage of opiate. 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 She is requesting a prescription just until her new pain clinic appt date. Mentioned to pt that she was [facility] for her Tele appt with PCP 08/15/22 @9:15am, pt stated she did not receive a phone call on her phone.Told pt I would send message to PCP to notify PCP of her request. * Telephone Encounter - BHAVESH Villavicencio - 08/23/2022 5:33 PM EST Please see plan from Transfer Patient note 07/29/22: Opioid prescription for short term use only until pt able to establish with pain management (Aug). Counseled on the lack of indication for usp pain, and how this medication will NOT be refilled. Only prescribed until pt able to see Pain Management. Patient was sent in 28 tablets on 07/29/22 with plan to use once nightly. Therefore, she should have3 tablets left. It appears she also missed our follow up appointment on 08/15/22. Please remind patient documented plan. Medication will NOT be refilled. Thank you. * Telephone Encounter - Herbert Velasquez - 08/23/2022 4:50 PM EST TC from pt asked to speak with scallop shucker . Call was transferred to pa . Pt upset/ irate due to medication oxycodone not being signed off on . Provider advised will send out today ./ abstract writer reminded pt about medication protocol . ( Call health center 3 days prior to medication running out/sign off may take up to 72 hours . ) documented in this encounter Plan of Treatment Upcoming Encounters Date Type Department Care Team (Late st Contact Info) Description 01/08/2025 11:15 AM EDT Office Visit [facility] [address] [place] [address] Name, MD Acosta [address] [place] [address] documented as of this encounter Visit Diagnoses Diagnosis Chronic bilateral low back pain, unspecified whether sciatica present Lumbar spondylosis Lumbosacral spondylosis without myelopathy documented in this encounter Additional Health Concerns Assessment Noted Time PHQ-9 Depression Total Score: 21 06/30/ 022 3:41 PM EST documented as of this encounter Care Teams Manager Enterprise Relationship Specialty Start Date End Date Eboni Cannon FNP [address] [place] [address] PCP - General Family Medicine 03/14/22 10/04/22 Leigh Self MD [address] [place] [address] PCP - General Family Medicine 11/17/22 09/10/23 Acosta Jerez MD [address] [place] [address] PCP - General Internal Medicine 12/08/23 Baldomero Fuentes FNP [address] [place] [address] Nurse Practitioner Family Medicine 06/20/23 documented as of this encounter
--- OUTSIDE RECORDS SUMMARY | 2024-10-14 17:09 | XMS_ITS | Encounter Summary ---
Author Organization [employer] Address 75 [facility] 7t [place] [address] Care Team Providers Care Operating Room Surgical Technician Name Role Phone Leigh Self MD Primary Care Provider [phone] Baldomero Fuentes Unavailable Unavailable NameAcosta MD Primary Care Provider [phone] Reason for Visit * Reason Comments Med Refill Encounter Details Date Type Department Care Team (Late Contact Info) Description 12/05/2022 Refill [facility] [address] [place] [address] Jolie Ojeda, ANP [address] [place] [address] Lumbar spondylosis; Chronic bilateral low back pain, [...] suspected to have Coronavirus/COVID-19? No / Unsure 11/17/2022 10:00 AM EDT documented as of this encounter Plan of Treatment Upcoming Encounters Date Type Department Care Team (Late Contact Info) Description 01/08/2025 11:15 AM EDT Office Visit [facility] [address] [place] [address] Name, MD [place] [address] documented as of this encounter Visit Diagnoses Diagnosis Lumbar spondylosis Lumbosacral spondylosis without myelopathy Chronic bilateral low back pain, unspecified whether sciatica present documented in this encounter Additional Health Concerns Assessment Noted Time PHQ-9 Depression Total Score: 16 023 11:30 AM EDT documented as of this encounter Care Teams Operating Room Surgical Technician Relationship Specialty Start Date End Date Leigh Self MD [address] [place] [address] PCP - General Family Medicine 11/17/22 09/10/23 Name, MD Acosta [address] [place] [address] PCP - General Internal Medicine 12/08/23 Baldomero Fuentes FNP [address] [place] [address] Nurse Practitioner Family Medicine 06/20/23 documented as of this encounter
--- OUTSIDE RECORDS SUMMARY | 2024-10-14 17:09 | XMS_ITS | Encounter Summary ---
Author Organization [employer] Address [address] [facility] [address] 7t [place] [address] Care Team Providers Care Commercial Stripper Name Role Phone Baldomero Fuentes Unavailable Unavailable Name, Acosta VALE Primary Care Provider [phone] Reason for Visit * Reason Comments Med Refill Encounter Details Date Type Department Care Team (Late st Contact Info) Description 03/13/2024 Refill [facility] [address] [place] [address] AjErin, OD [address] [place] [address] Social History Tobacco Use Types Packs/Day Years [...] Office Visit [facility] [address] [place] [address] Name, MD Acosta [address] [place] [address] documented as of this encounter Visit Diagnoses Not on filedocumented in this encounter Additional Health Concerns Assessment Noted Time PHQ-9 Depression Total Score: 14 024 11:32 AM EST documented as of this encounter Care Teams Commercial Stripper Relationship Specialty Start Date End Date NameAcosta MD [address] [place] [address] PCP - General Internal Medicine 12/08/23 Baldomero Fuentes FNP Nurse Practitioner Family Medicine 06/20/23 documented as of this encounter
--- OUTSIDE RECORDS SUMMARY | 2024-10-14 17:09 | XMS_ITS | Encounter Summary ---
Author Organization [email or web address] Address [address] [place] [address] 7t [place] [address] Care Team Providers Care Saw Handle Assembler Name Role Phone Leigh Self MD Primary Care Provider [phone] Baldomero Fuentes Unavailable Unavailable Name, Acosta VALE Primary Care Provider [phone] Reason for Visit * Reason Comments Med Refill Encounter Details Date Type Department Care Team (Late Contact Info) Description 03/14/2023 Refill [facility] [address] [place] [address] Leigh Self MD [address] [place], [place] [phone] Social History Tobacco Use Types Packs/Day Years [...] Description 01/08/2025 11:15 AM EDT Office Visit [facility] 230 [place], [place] [phone] Name, MD Acosta [address] [place], [place] [phone] documented as of this encounter Visit Diagnoses Not on filedocumented in this encounter Additional Health Concerns Assessment Noted Time PHQ-9 Depression Total Score: 17 023 11:28 AM EDT documented as of this encounter Care Teams Saw Handle Assembler Relationship Specialty Start Date End Date Leigh Self MD [address] [place] [address] PCP - General Family Medicine 11/17/22 09/10/23 Acosta Jerez MD [address] [place] [address] PCP - General Internal Medicine 12/08/23 Baldomero Fuentes FNP [address] [place] [address] Nurse Practitioner Family Medicine 06/20/23 documented as of this encounter
--- OUTSIDE RECORDS SUMMARY | 2024-10-14 17:09 | XMS_ITS | Encounter Summary ---
Author Organization [employer] Address 75 [facility] 7t [place] [address] Care Team Providers Care Taper/Finisher Name Role Phone Gina Baldomeroclaudio OSPINA Unavailable Unavailable Name, Acosta VALE Primary Care Provider [phone] Reason for Visit * Reason Comments Med Refill Encounter Details Date Type Department Care Team ([facility] st Contact Info) Description 07/02/2024 Refill [facility] 230 [place], [place] [phone] Name, MD Acosta 230 [place] [address] Morbid obesity with BMI of 45.0-49.9, adult [...] Description 01/08/2025 11:15 AM EDT Office Visit [facility] [address] [place] [address] Name, MD Acosta [address] [place] [address] documented as of this encounter Visit Diagnoses Diagnosis Morbid obesity with BMI of 45.0-49.9, adult (CMS/[facility]) documented in this encounter Additional Health Concerns Assessment Noted Time PHQ-9 Depression Total Score: 14 024 11:32 AM EST documented as of this encounter Care Teams Taper/Finisher Relationship Specialty Start Date End Date Name, MD Acosta [address] [place] [address] PCP - General Internal Medicine 12/08/23 Baldomero Fuentes FNP Nurse Practitioner Family Medicine 06/20/23 documented as of this encounter
--- OUTSIDE RECORDS SUMMARY | 2024-10-14 17:09 | XMS_ITS | Encounter Summary ---
Author Organization [employer] Address [address] [facility] [address] 7t [place] [address] Care Team Providers Care Manager Of Financial Planning Name Role Phone Baldomero Fuentes Unavailable Unavailable Name, Acosta VALE Primary Care Provider [phone] Reason for Visit * Reason Comments Med Refill Encounter Details Date Type Department Care Team (Late st Contact Info) Description 03/26/2024 Refill [facility] [address] [place] [address] AjErin, OD [address] [place] [address] Social History Tobacco Use Types Packs/Day Years [...] Description 01/08/2025 11:15 AM EDT Office Visit [facility] [address] [place] [phone] Name, MD Acosta [address] [place] [address] documented as of this encounter Visit Diagnoses Not on filedocumented in this encounter Additional Health Concerns Assessment Noted Time PHQ-9 Depression Total Score: 14 024 11:32 AM EST documented as of this encounter Care Teams Manager Of Financial Planning Relationship Specialty Start Date End Date NameAcosta MD [address] [place] [address] PCP - General Internal Medicine 12/08/23 Baldomero Fuentes FNP Nurse Practitioner Family Medicine 06/20/23 documented as of this encounter
--- OUTSIDE RECORDS SUMMARY | 2024-10-14 17:09 | XMS_ITS | Encounter Summary ---
Author Organization [employer] Address [address] [facility] [address] 7t [place] [address] Care Team Providers Care Mannequin Wig Maker Name Role Phone Leigh Self MD Primary Care Provider [phone] Baldomero Fuentes Unavailable Unavailable Name, Acosta VALE Primary Care Provider [phone] Reason for Visit * Reason Comments Med Refill Encounter Details Date Type Department Care Team ([facility] st Contact Info) Description 08/15/2023 Refill [facility] [address] [place] [address] Eboni Cannon FNP [address] [place], [place] [phone] Mild persistent asthma without complication Social History Tobacco Use Types Packs/Day Years [...] situation today? I have angel luisdavina watson 05/01/[address] [...] Description 01/08/2025 11:15 AM EDT Office Visit [facility] [address] [place] [address] NameAcosta MD [address] [place] [address] documented as of this encounter Visit Diagnoses Diagnosis Mild persistent asthma without complication documented in this encounter Additional Health Concerns Assessment Noted Time PHQ-9 Depression Total Score: 14 024 11:32 AM EST documented as of this encounter Care Teams Mannequin Wig Maker Relationship Specialty Start Date End Date Leigh Self MD [address] [place] [address] PCP - General Family Medicine 11/17/22 09/10/23 Acosta Jerez MD [address] [place] [address] PCP - General Internal Medicine 12/08/23 Baldomero Fuentes FNP [address] [place] [address] Nurse Practitioner Family Medicine 06/20/23 documented as of this encounter
--- OUTSIDE RECORDS SUMMARY | 2024-10-14 17:09 | XMS_ITS | Encounter Summary ---
Author Organization [employer] Address [address] [facility] [address] 7t [place] [address] Care Team Providers Care Skein Spooler Name Role Phone Baldomero Fuentes Unavailable Unavailable Name, Acosta VALE Primary Care Provider [phone] Reason for Visit * Reason Comments Med Refill Encounter Details Date Type Department Care Team (Late st Contact Info) Description 09/27/2023 Refill [facility] [address] [place], [place] [phone] Baldomero Fuentes FNP Social History Tobacco Use Types Packs/Day Years [...] Description 01/08/2025 11:15 AM EDT Office Visit [facility] [address] [place] [address] NameAcosta MD [address] [place] [address] documented as of this encounter Visit Diagnoses Not on filedocumented in this encounter Additional Health Concerns Assessment Noted Time PHQ-9 Depression Total Score: 14 024 11:32 AM EST documented as of this encounter Care Teams Skein Spooler Relationship Specialty Start Date End Date NameAcosta MD [address] [place] [address] PCP - General Internal Medicine 12/08/23 Baldomero Fuentes FNP Nurse Practitioner Family Medicine 06/20/23 documented as of this encounter
--- OUTSIDE RECORDS SUMMARY | 2024-10-14 17:09 | XMS_ITS | Encounter Summary ---
Author Organization [employer] Address 75 [facility] 7t [place] [address] Care Team Providers Care Press Shop Supervisor Name Role Phone Leigh Self MD Primary Care Provider [phone] Baldomero Fuentes Unavailable Unavailable Name, Acosta VALE Primary Care Provider [phone] Reason for Visit * Reason Comments Med Refill Encounter Details Date Type Department Care Team ([facility] st Contact Info) Description 05/19/2023 Refill [facility] [address] [place] [address] Marta Marroquin FNP [address] [facility] [place] [address] Mild intermittent asthma with acute exacerbation Social History Tobacco Use Types Packs/Day Years [...] Description 01/08/2025 11:15 AM EDT Office Visit [facility] [address] [place] [address] NameAcosta MD [address] [place] [address] documented as of this encounter Visit Diagnoses Diagnosis Mild intermittent asthma with acute exacerbation documented in this encounter Additional Health Concerns Assessment Noted Time PHQ-9 Depression Total Score: 19 023 11:00 AM EDT documented as of this encounter Care Teams Press Shop Supervisor Relationship Specialty Start Date End Date Leigh Self MD [address] [place] [address] PCP - General Family Medicine 11/17/22 09/10/23 Acosta Jerez MD [address] [place] [address] PCP - General Internal Medicine 12/08/23 Baldomero Fuentes FNP [address] [place] [address] Nurse Practitioner Family Medicine 06/20/23 documented as of this encounter
--- OUTSIDE RECORDS SUMMARY | 2024-10-14 17:09 | XMS_ITS | Encounter Summary ---
Author Organization [employer] Address [address] [facility] [address] 7t [place] [address] Care Team Providers Care Billing Collections Specialist Name Role Phone Baldomero Fuentes Unavailable Unavailable Name, Acosta VALE Primary Care Provider [phone] Reason for Visit * Reason Comments Med Refill Encounter Details Date Type Department Care Team (Late st Contact Info) Description 09/19/2024 Refill [facility] [address] [place] [address] AjErin, OD [address] [place] [address] Social History Tobacco Use Types Packs/Day Years [...] Description 01/08/2025 11:15 AM EDT Office Visit [facility] [address] [place] [address] Name, MD Acosta [address] [place] [address] documented as of this encounter Visit Diagnoses Not on filedocumented in this encounter Additional Health Concerns Assessment Noted Time PHQ-9 Depression Total Score: 14 024 11:32 AM EST documented as of this encounter Care Teams Billing Collections Specialist Relationship Specialty Start Date End Date NameAcosta MD [address] [place] [address] PCP - General Internal Medicine 12/08/23 Baldomero Fuentes FNP Nurse Practitioner Family Medicine 06/20/23 documented as of this encounter
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
[2024-10-15 12:19] LABS: RPR Rapid Plasma Reagin NON-REACTIVE (NON-REACTIVE)
[2024-10-17 03:23] LABS: TS Negative Control Passed; TS Panel A 0; TS Panel B 0; TS Positive Control Passed; TSpotTB Negative (Negative)
[2024-10-18 16:59] LABS: Treponema pallidum Ab FTA ABS Nonreactive (Nonreactive)
[2024-10-18 19:12] LABS: Angiotensin Converting Enzyme 36.9 U/L (9-67)
== END 2024-10-14 15:08 | disposition home or self-care (01) ==
LOC: HO.HHCL 15:07
PROVIDERS: Visit Provider Ophthalmology
DX: H20.13 Chronic iridocyclitis, bilateral (principal)
CPT/HCPCS: 36415; 82164; 86481; 86592; 86780

== ENCOUNTER 2024-10-21 15:54 | Outpatient (REF) | payer MEDICAID, SELFPAY ==
--- OUTSIDE RECORDS SUMMARY | 2024-10-21 18:34 | XMS_ITS | Encounter Summary ---
Author Organization [employer] Address [address] [facility] 7t [place] [address] Care Team Providers Care Inside Polisher Name Role Phone GinaBaldomero BHAVESH Unavailable Unavailable Name, Acosta VALE Primary Care Provider [phone] Reason for Visit * Reason Onset Date Comments Med Refill 02/13/2024 Encounter Details Date Type Department Care Team ([facility] st Contact Info) Description 02/13/2024 Refill [facility] [address] [place], [place] [phone] Name, MD Acosta [address] [place] [address] Morbid obesity with BMI of 45.0-49.9, adult [...] Visit [facility] [address] [place] [address] Name, MD Acosta [address] [place] [address] documented as of this encounter Visit Diagnoses Diagnosis Morbid obesity with BMI of 45.0-49.9, adult (CMS/HCC) documented in this encounter Additional Health Concerns Assessment Noted Time PHQ-9 Depression Total Score: 14 024 11:32 AM EST documented as of this encounter Care Teams Inside Polisher Relationship Specialty Start Date End Date NameAcosta MD [address] [place] [address] PCP - General Internal Medicine 12/08/23 Baldomero Fuentes FNP Nurse Practitioner Family Medicine 06/20/23 documented as of this encounter
--- OUTSIDE RECORDS SUMMARY | 2024-10-21 18:34 | XMS_ITS | Encounter Summary ---
Author Organization [employer] Address [address] [facility] 7t [place] [address] Care Team Providers Care Business Process Specialist Name Role Phone Leigh eSlf MD Primary Care Provider [phone] Baldomero Fuentes Unavailable Unavailable Name, Acosta VALE Primary Care Provider [phone] Reason for Visit * Reason Comments Med Refill Encounter Details Date Type Department Care Team (Late st Contact Info) Description 06/01/2023 Refill [facility] [address] [place], [place] [phone] Leigh Self MD [address] [place], [place] [phone] Chronic bilateral low back pain, unspecified whether [...] Description 01/08/2025 11:15 AM EDT Office Visit [facility] [address] [place] [address] NameAcosta MD [address] [place] [address] documented as of this encounter Visit Diagnoses Diagnosis Chronic bilateral low back pain, unspecified whether sciatica present documented in this encounter Additional Health Concerns Assessment Noted Time PHQ-9 Depression Total Score: 17 023 11:17 AM EST documented as of this encounter Care Teams Business Process Specialist Relationship Specialty Start Date End Date Leigh Self MD [address] [place] [address] PCP - General Family Medicine 11/17/22 09/10/23 Acosta Jerez MD [address] [place] [address] PCP - General Internal Medicine 12/08/23 Baldomero Fuentes FNP [address] [place] [address], [place] [address] Nurse Practitioner Family Medicine 06/20/23 documented as of this encounter
--- OUTSIDE RECORDS SUMMARY | 2024-10-21 18:34 | XMS_ITS | Encounter Summary ---
Author Organization [employer] Address [address] [facility] 7t [place] [address] Care Team Providers Care Photo Technician Name Role Phone Baldomero Fuentes Unavailable Unavailable Name, Acosta VALE Primary Care Provider [phone] Reason for Visit * Reason Comments Med Refill Encounter Details Date Type Department Care Team (Late st Contact Info) Description 09/27/[address] [facility] MEDICINE [address] [place], [place] [phone] Baldomero Fuentes FNP Social History Tobacco Use [...] 11:15 AM EDT Office Visit [facility] MED[facility]INE [address] [place] [address] NameAcosta MD [address] [place] [address] documented as of this encounter Visit Diagnoses Not on filedocumented in this encounter Additional Health Concerns Assessment Noted Time PHQ-9 Depression Total Score: 14 024 11:32 AM EST documented as of this encounter Care Teams Photo Technician Relationship Specialty Start Date End Date NameAcosta MD [address] [place] [address] PCP - General Internal Medicine 12/08/23 Baldomero Fuentes FNP Nurse Practitioner Family Medicine 06/20/23 documented as of this encounter
--- OUTSIDE RECORDS SUMMARY | 2024-10-21 18:34 | XMS_ITS | Encounter Summary ---
Author Organization [employer] Address [address] [place] [address] 7t [place] [address] Care Team Providers Care Accuracy Expert Name Role Phone Leigh Self MD Primary Care Provider [phone] Baldomero Fuentes AGRICULTURE MANAGER Unavailable Unavailable Name, Acosta VALE Primary Care Provider [phone] Reason for Visit * Reason Comments Med Refill Encounter Details Date Type Department Care Team (Late Contact Info) Description 03/14/2023 Refill [facility] [address] [place] [address] Leigh Self MD [address] [place], [place] [phone] Social History Tobacco Use Types Packs/Day Years [...] Description 01/08/2025 11:15 AM EDT Office Visit [facility] [address] [place], [place] [phone] Name, MD Acosta [address] [place], [place] [phone] documented as of this encounter Visit Diagnoses Not on filedocumented in this encounter Additional Health Concerns Assessment Noted Time PHQ-9 Depression Total Score: 17 023 11:28 AM EDT documented as of this encounter Care Teams Accuracy Expert Relationship Specialty Start Date End Date Leigh Self MD [address] [place] [address] PCP - General Family Medicine 11/17/22 09/10/23 Acosta Jerez MD [address] [place] [address] PCP - General Internal Medicine 12/08/23 Baldomero Fuentes FNP [address] [place] [address] Nurse Practitioner Family Medicine 06/20/23 documented as of this encounter
--- OUTSIDE RECORDS SUMMARY | 2024-10-21 18:34 | XMS_ITS | Encounter Summary ---
Author Organization [employer] Address [address] [facility] [address] [place] [address] Care Team Providers Care Fluid Dynamicist Name Role Phone Baldomero Fuentes Unavailable Unavailable Name, Acosta VALE Primary Care Provider [phone] Reason for Visit * Reason Comments Med Refill Encounter Details Date Type Department Care Team (Late st Contact Info) Description 03/26/2024 Refill [facility] [address] [place] [address] AjErin, OD [address] [place] [address] Social History Tobacco Use Types Packs/Day Years [...] Description 01/08/2025 11:15 AM EDT Office Visit [facility] [address] [place] [phone] Name, MD Acosta [address] [place] [address] documented as of this encounter Visit Diagnoses Not on filedocumented in this encounter Additional Health Concerns Assessment Noted Time PHQ-9 Depression Total Score: 14 024 11:32 AM EST documented as of this encounter Care Teams Fluid Dynamicist Relationship Specialty Start Date End Date NameAcosta MD [address] [place] [address] PCP - General Internal Medicine 12/08/23 Baldomero Fuentes FNP Nurse Practitioner Family Medicine 06/20/23 documented as of this encounter
--- OUTSIDE RECORDS SUMMARY | 2024-10-21 18:34 | XMS_ITS | Encounter Summary ---
Author Organization [employer] Address [address] 7[address] [place] [address] Care Team Providers Care Prevention Rn Name Role Phone Baldomero Fuentes Unavailable Unavailable Name, Acosta VALE Primary Care Provider [phone] Reason for Visit * Reason Comments Med Refill Encounter Details Date Type Department Care Team (Late st Contact Info) Description 03/13/2024 Refill [facility] [address] [place] [address] AjErin osuna, OD [address] [place] [address] Social History Tobacco Use Types Packs/Day Years [...] Description 01/08/2025 11:15 AM EDT Office Visit [facility] [address] [place] [address] Name, MD Acosta [address] [place] [address] documented as of this encounter Visit Diagnoses Not on filedocumented in this encounter Additional Health Concerns Assessment Noted Time PHQ-9 Depression Total Score: 14 024 11:32 AM EST documented as of this encounter Care Teams Prevention Rn Relationship Specialty Start Date End Date NameAcosta MD [address] [place] [address] PCP - General Internal Medicine 12/08/23 Baldomero Fuentes FNP Nurse Practitioner Family Medicine 06/20/23 documented as of this encounter
--- OUTSIDE RECORDS SUMMARY | 2024-10-21 18:34 | XMS_ITS | Encounter Summary ---
Author Organization [employer] Address 75 [facility] 7t [place] [address] Care Team Providers Care General Farmworker Name Role Phone Leigh Self MD Primary Care Provider [phone] Baldomero Fuentes Unavailable Unavailable Name, Acosta VALE Primary Care Provider [phone] Reason for Visit * Reason Comments Med Refill Encounter Details Date Type Department Care Team ([facility] st Contact Info) Description 08/15/2023 Refill [facility] MED[facility] [address] [place] [address] Eboni Cannon FNP [address] [place], [place] [phone] Mild persistent asthma without complication Social History [...] 11:15 AM EDT Office Visit [facility] [address] [place] [address] NameAcosta MD [address] [place] [address] documented as of this encounter Visit Diagnoses Diagnosis Mild persistent asthma without complication documented in this encounter Additional Health Concerns Assessment Noted Time PHQ-9 Depression Total Score: 14 024 11:32 AM EST documented as of this encounter Care Teams General Farmworker Relationship Specialty Start Date End Date Leigh Self MD [address] [place] [address] PCP - General Family Medicine 11/17/22 09/10/23 Acosta Jerez MD [address] [place] [address] PCP - General Internal Medicine 12/08/23 Baldomero Fuentes FNP [address] [place] [address] Nurse Practitioner Family Medicine 06/20/23 documented as of this encounter
--- OUTSIDE RECORDS SUMMARY | 2024-10-21 18:34 | XMS_ITS | Clinical Summary ---
Author Organization [employer] Address 75 [facility] 7t [place] [address] Care Team Providers Care Legal Process Specialist Name Role Phone Baldomero Fuentes Unavailable Unavailable Name, Acosta VALE Primary Care Provider [phone] Allergies No known active allergies Medications * This document contains information received from the source organization and may not represent a complete record from that organization. cholecalciferol (Vitamin D-3) 50 MCG (1999 UT) capsule Take 1 capsule by mouth at bed time. 022 Active sodium chloride (Weber Nasal Williamson) 0.65 % nasal sprayIndication s:Viral syndrome 1-2 [...] NEEDED FOR MUSCLE SPASMS 90 tablet Active Tirzepatide-Alonso ght Management (Zepbound) 7.5 MG/0.5ML solution [...] uveitis? , keratitis? -I called today her [facility] [place] and was told by staff that pt [...] -advised in length to f w her sectionizer as soon as possible-already apt scheduled for 05/18/2023 -alarm signs and symptoms discussed Abrasion, corneal 05/03/2023 05/03/2023 Glaucoma 05/03/2023 05/03/2023 Assessment & Plan (05/24/2023 11:38 AM EST): - Following with Eye and Las[facility]. - Continue treatment plan per sectionizer Breast abscess 05/03/2023 05/03/2023 History of smoking [...] and most recently T#3 until appt for [facility]. --Pt states these medications [...] provider - unable to keep appt with [facility]. 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 F/U with me in 3 weeks. She agrees with the plan. Asthma 06/18/2022 Assessment & Plan (07/13/2023 9:13 AM EST): - previously tried Flovent, Advair, and Symbicort - will try Breo - refer to shellfish farming supervisor Assessment & Plan (12/18/2022 6:17 AM EDT): [...] multidisciplinary approach -Unable to keep appt with [facility] due to transportation issue -Referred to pain management and physical therapy in [place]; pt states she has an upcoming appointment -Pt requests T#3 script and verbalized understanding that this will be her last script and there is no further script. Pt was urged to keep appointment with painter aircraft. Assessment & Plan (05/24/2023 11:37 AM EST): [...] multidisciplinary approach -Unable to keep appt with [facility] due to transportation issue -Refer to pain management and physical therapy in [place] Assessment & Plan (04/10/2023 10:53 AM EDT): [...] -Continue offering multidisciplinary approach -Upcoming appt with sports medicine specialist -Agreed to provide short course of [...] management, physiatry, or chiropractic in the future. [facility] acupuncture clinic Hidradenitis suppurativa 01/07/2013 Assessment & Plan (12/18/2022 6:24 AM EDT): -she was referred to Derm clinic and general surgeon by previous PCP; will review the notes and address at next visit Assessment & Plan (08/01/2022 2:53 PM EST): -Referral to [facility] Derm Clinic -Referral to Gen Surgeon [...] function, call Crisis or seek care at [facility] as needed. Since this provider will be retiring, patient will be tranferred to new [facility] psychiatric provider. She is aware that appointments will be via televisit, and that the provider will not be employed by [facility]. Therefore she gives verbal consent to share protected health information. Any issues or concerns, call [facility]. All her questions were answered and [...] function, call Crisis or seek care at [facility] as needed, do NOT attempt to call [...] function, call Crisis or seek care at [facility] as needed, do NOT attempt to call [...] function, call Crisis or seek care at [facility] as needed, do NOT attempt to call [...] function, call Crisis or seek care at [facility] as needed, do NOT attempt to call [...] function, call Crisis or seek care at [facility] as needed, do NOT attempt to call [...] function, call Crisis or seek care at [facility] as needed, do NOT attempt to call [...] function, call Crisis or seek care at [facility] as needed, do NOT attempt to call [...] function, call Crisis or seek care at [facility] as needed, do NOT attempt to call [...] Department Care Team Description 10/04/2024 Orders Only [facility] OPTOMETRY [address] [place] [address] Aj, Erin, OD Acute angle-closure glaucoma of right eye (Primary Dx); Chronic angle-closure glaucoma of both eyes, severe stage 09/27/2024 Population Health Risk Score [facility] (C[facility]) Department [address] [place] [address] Provider, Population Health Generic 09/25/2024 Refill [facility] OPTOMETRY [address] [place] [address] Erin Rocha, OD 09/25/2024 Refill [facility] MEDICINE [address] [place] [address] Acosta Jerez MD 09/19/2024 Refill [facility] [address] [place] [address] Acosta Jerez MD Bipolar 2 disorder ([facility]) 09/19/2024 Refill [facility] OPTOMETRY [address] [place] [address] Erin Rocha, OD 09/17/2024 Refill [facility] [address] [place] [address] Acosta Jerez MD Pain in right knee; Spondylosis without myelopathy or radiculopathy, lumbar region 09/13/2024 Refill [facility] [address] [place] [address] Katie Hardy NP 09/13/2024 Refill [facility] [address] [place] [address] Marti Rasheed MD Chronic bilateral low back pain, unspecified whether sciatica present 08/28/2024 Refill [facility] [address] [place] [address] Katie Hardy NP 08/26/2024 1:45 PM EST Office Visit [facility] [address] [place] [address] Acosta Jerez MD Morbid obesity with body mass index (BMI) of 50.0 to 59.9 in adult ([facility]) (Primary Dx); Chronic bilateral back pain, unspecified back location 08/26/2024 Telephone [facility] [address] [place] [address] Acosta Jerez MD Prior Authorization (Zepbound) 08/26/2024 Travel 08/15/2024 Refill [facility] [address] [place] [address] Acosta Jerez MD from Last 3 Months Immunizations Name Administration [...] Description 01/08/2025 11:15 AM EDT Office Visit [facility] [address] [place] [address] Name, MD Acosta [address] [place] [address] Health Maintenance Due Date Last Done Comments [...] Monitoring (PHQ-9) 02/06/2024 08/08/2023, 08/08/2023 COVID-19 Vaccine (3 - season) 2024 10/29/2021, 10/29/2021 Influenza Vaccine (#1) 2024 05/23/2011 Depression Screening 08/08/2024 08/08/2023, 08/08/19 Diabetes: Hemoglobin A1C 12/07/2024 024, 12/29/2022, 07/29/2022, [...] 1:41 PM EDT) Triglycerides 105 <150 mg/dL [facility] Comment:Desirable Triglyceri de: less than 150 mg/dLBorderline High Triglyceride 150-199 mg/dLHigh Triglyceride: 200-499 mg/dLVery High Triglyceride: greater than or equal to 5OO mg/dL Cholesterol 160 <200 mg/dL [facility] Comment:Desirable Cholestero l: less than 200 mg/dLBorderline High Cholesterol: 200-239 mg/dLHigh Cholesterol: greater than 239 mg/dL LDL Cholesterol Calculated 95 <100 mg/dL [facility] Comment:Desirable LDL: less than 100 mg/dLNear Optimal/Above Optimal LDL: 110- 129 mg/dLBorderline High LDL: 130-159 mg/dLHigh LDL: 160-189 mg/dLVery High LDL: greater than or equal to 190 mg/dL HDL Cholesterol 44 >40 mg/dL [facility] Comment:Desirable HDL: great er than 40 mg/dL Note: This HDL assay may give artificially low results in patients with liver disease. Blood 12/08/2023 1:41 PM EDT 12/08/2023 4:08 PM EDT us Leigh Self MD LAB BLOOD ORDERABLES Final Resul t [facility] [address] [place] [address] [phone] * Hemoglobin A1c (12/08/2023 1:41 PM EDT) Hemoglobin A1c 5.5 <6.0 % [facility] Comment:Hemoglobin A1C Refer ence Range Adults: 4.8 - 6.0 % Non diabetic: < 6.0 % Goal: < 7.0 %Additional Action Suggested: > 8.0 %Note: Hemoglobin A1c results are invalid for patients with abnormal amounts of HbF. Blood transfusions may impact the HbA1c concentration in the patient sample. Estimated Average Glucose 111 mg/dL [facility] Comment:eAG = Estimated ave rage glucose which is %A1C expressed asaverage glucose, using the formula of the T9C-VixyvbpBrecsdz Glucose study (ADAG), Diabetes Care, Vol.31,#8,2007 Blood Venous blood specimen / Unknown 12/08/2023 1:41 PM EDT 12/08/2023 4:08 PM EDT Leigh Self MD LAB BLOOD ORDERABLES Final Resul t [facility] [address] [place] [phone] * Hepatitis C Antibody with Reflex to HCV, RNA, Quantitative, Real-Time PCR (12/29/2022 2:21 PM EDT) Hepatitis C Antibody NON-REACT MACKENZIE NON-REACT MACKENZIE [facility] Index 0.14 <1.00 [facility] Comment: HCV antibody was non-reactive. There is no laboratory evidence of HCV infection. In most cases, no further action is required. However, if recent HCV exposure is suspected, a test for HCV RNA (test code 50535) is suggested. For additional information please refer to http://education.BG Medicine/faq/HMV79z3 (This link is being provided for informational/ educational purposes only.) 12/29/2022 2:21 PM EDT 12/29/2022 2:22 PM EDT Narrative [facility] - 12/30/2022 6:11 PM EDT FASTING:NO FASTING: NO Baldomero Fuentes [facility] LAB BLOOD ORDERABLES Final Res ult [facility] [address], [place] [address] [facility] [address] [place] [address] * HIV-1/2 Antigen and Antibodies, Fourth Generation, with Reflexes (12/29/2022 2:21 PM EDT) Pathologist [facility] HIV Antigen/Antibody, 4th Generation NON-REAC TIVE NON-REAC TIVE [facility] Comment: HIV-1 antigen and HIV-1/HIV-2 antibodies were [...] ?? For additional information please refer to http://education.BG Medicine/faq/GFI162 (This link is being provided for informational/ educational purposes only.) The performance of this assay has not been clinically validated in patients less than 2 years old. 12/29/2022 2:21 PM EDT 12/29/2022 2:22 PM EDT Narrative [facility] - 12/30/2022 6:11 PM EDT FASTING:NO FASTING: NO Baldomero Fuentes [facility] LAB BLOOD ORDERABLES Final Res ult [facility] [address], [place] [address] [facility] [address] [place] [address] from Last 3 Months or Most Recently Relevant to Health Maintenance Insurance * Guarantor: Lynsey Casas Account Type Relation to Patient Date of Phone Billing Address Personal/Family Self [address] Care Teams Legal Process Specialist Relationship Specialty Start Date End Date Name, MD Acosta [address] [place] [address] PCP - General Internal Medicine 12/08/23 Baldomero Fuentes FNP Nurse Practitioner Family Medicine 06/20/23
--- OUTSIDE RECORDS SUMMARY | 2024-10-21 18:34 | XMS_ITS | Encounter Summary ---
Author Organization [employer] Address 75 [facility] 7t [place] [address] Care Team Providers Care Post Commander Name Role Phone Eboni Cannon Primary Care Provider [phone] Leigh Self MD Primary Care Provider [phone] Baldomero Fuentes Unavailable Unavailable Name, Acosta VALE Primary Care Provider [phone] Reason for Visit * Reason Onset Date Comments Med Refill Percocet Denied 08/23/2022 Notified of Perc ocet not being refilled Encounter Details Date Type Department Care Team (Late st Contact Info) Description 08/23/2022 Refill [facility] MED[facility] [address] [place] [address] Eboni Cannon FNP [address] [place], [place] [phone] Chronic bilateral low back pain, unspecified whether [...] she does not have dx to 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 Pt stated she had to cancel her pain management clinic appt 08/23/22 d/t child was ill and she did not have a illusionist. Pt states she is rescheduled for [facility] Pain clinic 09/20/22 and that she has a illusionist lined up. 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 [place] . Pt upset/ irate due to medication oxycodone not being signed off on . Provider advised will send out today ./ narrative writer reminded pt about medication protocol . ( Call health center 3 days prior to medication running out/sign off may take up to 72 hours . ) documented in this encounter Plan of Treatment Upcoming Encounters Date Type Department Care Team (Late st Contact Info) Description 01/08/2025 11:15 AM EDT Office Visit [facility] [address] [place] [address] Name, MD Acosta [address] [place] [address] documented as of this encounter Visit Diagnoses Diagnosis Chronic bilateral low back pain, unspecified whether sciatica present Lumbar spondylosis Lumbosacral spondylosis without myelopathy documented in this encounter Additional Health Concerns Assessment Noted Time PHQ-9 Depression Total Score: 21 06/30/ 022 3:41 PM EST documented as of this encounter Care Teams Post Commander Relationship Specialty Start Date End Date Eboni Cannon FNP [address] [place] [address] PCP - General Family Medicine 03/14/22 10/04/22 Leigh Self MD [address] [place] [address] PCP - General Family Medicine 11/17/22 09/10/23 Acosta Jerez MD [address] [place] [address] PCP - General Internal Medicine 12/08/23 Baldomero Fuentes FNP [address] [place] [address] Nurse Practitioner Family Medicine 06/20/23 documented as of this encounter
--- OUTSIDE RECORDS SUMMARY | 2024-10-21 18:34 | XMS_ITS | Encounter Summary ---
Author Organization [employer] Address 75 [facility] 7t [place] [address] Care Team Providers Care Smeller Name Role Phone Leigh Self MD Primary Care Provider Baldomero Fuentes Unavailable Unavailable Name, Acosta VALE Primary Care Provider [phone] Reason for Visit * Reason Onset Date Comments FYI 08/11/2023 Encounter Details Date Type Department Care Team ([facility] st Contact Info) Description 08/11/2023 Telephone [facility] [address] [place], [place] [phone] Leigh Self MD [address] [place], [place] [phone] FY Social History Tobacco Use Types Packs/Day [...] 9:33 AM EST TC from Monica with [facility] leather products supervisor calling to inform they will be screening pt out . All of pt evacuation will be faxed over to provided fax # [phone]. Any question contact phone # [phone] documented in this encounter Plan of Treatment Upcoming Encounters Date Type Department Care Team (Late st Contact Info) Description 01/08/2025 11:15 AM EDT Office Visit [facility] [address] [place] [address] Name, MD Acosta [address] [place] [address] documented as of this encounter Visit Diagnoses Not on filedocumented in this encounter Additional Health Concerns Assessment Noted Time PHQ-9 Depression Total Score: 14 024 11:32 AM EST documented as of this encounter Care Teams Smeller Relationship Specialty Start Date End Date Leigh Self MD [address] [place] [address] PCP - General Family Medicine 11/17/22 09/10/23 Name, MD Acosta [address] [place] [address] PCP - General Internal Medicine 12/08/23 Baldomero Fuentes FNP [address] [place] [address] Nurse Practitioner Family Medicine 06/20/23 documented as of this encounter
--- OUTSIDE RECORDS SUMMARY | 2024-10-21 18:34 | XMS_ITS | Encounter Summary ---
Author Organization [employer] Address 75 [facility] 7t [place] [address] Care Team Providers Care Wood Calker Name Role Phone Leigh Self MD Primary Care Provider [phone] Baldomero Fuentes Unavailable Unavailable Name, Acosta VALE Primary Care Provider [phone] Reason for Visit * Reason Comments Med Refill Encounter Details Date Type Department Care Team (Late st Contact Info) Description 06/12/2023 Refill [facility] [address] [place] [address] Leigh Self MD [address] [place], [place] [phone] Lumbar spondylosis; Chronic bilateral low back pain, [...] Description 01/08/2025 11:15 AM EDT Office Visit [facility] MEDICINE [address] [place] [address] NameAcosta MD [address] [place] [address] documented as of this encounter Visit Diagnoses Diagnosis Lumbar spondylosis Lumbosacral spondylosis without myelopathy Chronic bilateral low back pain, unspecified whether sciatica present documented in this encounter Additional Health Concerns Assessment Noted Time PHQ-9 Depression Total Score: 17 023 11:17 AM EST documented as of this encounter Care Teams Wood Calker Relationship Specialty Start Date End Date Leigh Self MD [address] [place] [address] PCP - General Family Medicine 11/17/22 09/10/23 Acosta Jerez MD [address] [place] [address] PCP - General Internal Medicine 12/08/23 Baldomero Fuentes FNP [address] [place] [address] Nurse Practitioner Family Medicine 06/20/23 documented as of this encounter
--- OUTSIDE RECORDS SUMMARY | 2024-10-21 18:34 | XMS_ITS | Encounter Summary ---
Author Organization [employer] Address 75 [facility] 7t [place] [address] Care Team Providers Care Maintenance Of Way Superintendent Name Role Phone Leigh Self MD Primary Care Provider [phone] Baldomero Fuentes Unavailable Unavailable Name, Acosta VALE Primary Care Provider [phone] Reason for Visit * Reason Comments Med Refill Encounter Details Date Type Department Care Team ([facility] st Contact Info) Description 05/19/2023 Refill [facility] [address] [place] [address] Marta Marroquin FNP 75 [facility] Dept of [place] [address] Mild intermittent asthma with acute exacerbation Social [...] Description 01/08/2025 11:15 AM EDT Office Visit [facility] MEDICINE [address] [place] [address] NameAcosta MD [address] [place] [address] documented as of this encounter Visit Diagnoses Diagnosis Mild intermittent asthma with acute exacerbation documented in this encounter Additional Health Concerns Assessment Noted Time PHQ-9 Depression Total Score: 19 023 11:00 AM EDT documented as of this encounter Care Teams Maintenance Of Way Superintendent Relationship Specialty Start Date End Date Leigh Self MD [address] [place] [address] PCP - General Family Medicine 11/17/22 09/10/23 Acosta Jerez MD [address] [place] [address] PCP - General Internal Medicine 12/08/23 Baldomero Fuentes FNP [address] [place] [address] Nurse Practitioner Family Medicine 06/20/23 documented as of this encounter
--- OUTSIDE RECORDS SUMMARY | 2024-10-21 18:34 | XMS_ITS | Encounter Summary ---
Author Organization [employer] Address 75 [facility] 7t [place] [address] Care Team Providers Care Cook Station Name Role Phone Gina Baldomeroclaudio OSPINA Unavailable Unavailable Name, Acosta VALE Primary Care Provider [phone] Reason for Visit * Reason Comments Med Refill Encounter Details Date Type Department Care Team ([facility] st Contact Info) Description 07/02/2024 Refill [facility] MEDICINE [address] [place], [place] [phone] Name, MD Acosta [address] [place] [address] Morbid obesity with BMI of 45.0-49.9, adult [...] 11:15 AM EDT Office Visit [facility] MED[facility]INE [address] [place] [address] Name, MD Acosta [address] [place] [address] documented as of this encounter Visit Diagnoses Diagnosis Morbid obesity with BMI of 45.0-49.9, adult ([facility]) documented in this encounter Additional Health Concerns Assessment Noted Time PHQ-9 Depression Total Score: 14 024 11:32 AM EST documented as of this encounter Care Teams Cook Station Relationship Specialty Start Date End Date Name, MD Acosta [address] [place] [address] PCP - General Internal Medicine 12/08/23 Baldomero Fuentes FNP Nurse Practitioner Family Medicine 06/20/23 documented as of this encounter
--- OUTSIDE RECORDS SUMMARY | 2024-10-21 18:34 | XMS_ITS | Encounter Summary ---
Author Organization [employer] Address [address] [facility] 7t [place] [address] Care Team Providers Care Bindery Cutter Operator Name Role Phone Eboni Cannon Primary Care Provider [phone] Leigh Self MD Primary Care Provider [phone] Baldomero Fuentes Unavailable Unavailable Name, Acosta VALE Primary Care Provider Reason for Visit * Reason Comments Med Refill Encounter Details Date Type Department Care Team (Late st Contact Info) Description 09/08/2022 Refill [facility] [address] [place] [address] Eboni Cannon FNP [address] [place], [place] [phone] Pain Social History Tobacco Use Types Packs/Day [...] 11:15 AM EDT Office Visit [facility] [address] [place] [address] [place] [address] documented as of this encounter Visit Diagnoses Diagnosis Pain Generalized pain documented in this encounter Additional Health Concerns Assessment Noted Time PHQ-9 Depression Total Score: 21 022 3:41 PM EST documented as of this encounter Care Teams Bindery Cutter Operator Relationship Specialty Start Date End Date [place]bon[place] [address] PCP - General Family Medicine 03/14/22 10/04/22 Leigh Self MD [address] [place] [address] PCP - General Family Medicine 11/17/22 09/10/23 Name, MD Acosta [address] [place] [address] PCP - General Internal Medicine 12/08/23 Baldomero Fuentes FNP [address] [place] [address] Nurse Practitioner Family Medicine 06/20/23 documented as of this encounter
--- OUTSIDE RECORDS SUMMARY | 2024-10-21 18:35 | XMS_ITS | Encounter Summary ---
Author Organization [employer] Address [address] [facility] [address] [address] 7t [place] [address] Care Team Providers Care Busgirl Name Role Phone Baldomero Fuentes Unavailable Unavailable Name, Acosta VALE Primary Care Provider [phone] Reason for Visit * Reason Comments Med Refill Encounter Details Date Type Department Care Team (Late st Contact Info) Description 09/25/2024 Refill [facility] OPTOMETRY [address] [place] [address] AjErin, OD [address] [place] [address] Social History Tobacco Use Types Packs/Day Years [...] Description 01/08/2025 11:15 AM EDT Office Visit [facility] MEDICINE [address] [place] [address] Name, MD Acosta [address] [place] [address] documented as of this encounter Visit Diagnoses Not on filedocumented in this encounter Additional Health Concerns Assessment Noted Time PHQ-9 Depression Total Score: 14 024 11:32 AM EST documented as of this encounter Care Teams Busgirl Relationship Specialty Start Date End Date NameAcosta MD [address] [place] [address] PCP - General Internal Medicine 12/08/23 Baldmoero Fuentes FNP Nurse Practitioner Family Medicine 06/20/23 documented as of this encounter
--- OUTSIDE RECORDS SUMMARY | 2024-10-21 18:35 | XMS_ITS | Encounter Summary ---
Author Organization [employer] Address 75 [facility] 7t [place] [address] Care Team Providers Care Jack Spinner Name Role Phone Leigh Self MD Primary Care Provider Baldomero Fuentes Unavailable Unavailable NameAcosta MD Primary Care Provider [phone] Reason for Visit * Reason Comments Med Refill Encounter Details Date Type Department Care Team (Late Contact Info) Description 01/03/2023 Refill [facility] [address] [place] [address] Jolie Ojeda, ANP 230 [place] [address] Lumbar spondylosis; Chronic bilateral low back pain, [...] Description 01/08/2025 11:15 AM EDT Office Visit [facility] [address] [place] [address] Name, MD Acosta 230 [place] [address] documented as of this encounter Visit Diagnoses Diagnosis Lumbar spondylosis Lumbosacral spondylosis without myelopathy Chronic bilateral low back pain, unspecified whether sciatica present documented in this encounter Additional Health Concerns Assessment Noted Time PHQ-9 Depression Total Score: 16 023 11:30 AM EDT documented as of this encounter Care Teams Jack Spinner Relationship Specialty Start Date End Date Leigh Self MD [address] [place] [address] PCP - General Family Medicine 11/17/22 09/10/23 Name, MD Acosta [address] [place] [address] PCP - General Internal Medicine 12/08/23 Baldomero Fuentes FNP [address] [place] [address] Nurse Practitioner Family Medicine 06/20/23 documented as of this encounter
--- OUTSIDE RECORDS SUMMARY | 2024-10-21 18:35 | XMS_ITS | Encounter Summary ---
Author Organization [employer] Address 75 [facility] 7t [place] [address] Care Team Providers Care Air Antisubmarine Officer Name Role Phone Leigh Self MD Primary Care Provider [phone] Baldomero Fuentes Unavailable Unavailable Acosta Jerez MD Primary Care Provider [phone] Reason for Visit * Reason Comments Med Refill Encounter Details Date Type Department Care Team ([facility] Contact [facility]) Description 01/02/2023 Refill [facility] MEDICINE [address] [place], [place] [phone] Baldomero Fuentes FNP Bipolar 2 disorder ([facility]) Social History Tobacco Use Types Packs/Day Years [...] Upcoming Encounters Date Type Department Care Team ([facility] Contact Info) Description 01/08/2025 11:15 AM EDT Office Visit [facility] MED[facility] [address] [place], [place] [phone] Name, MD Acosta [address] [place] [address] documented as of this encounter Visit Diagnoses Diagnosis Bipolar 2 disorder (CMS/HCC) Other bipolar disorders documented in this encounter Additional Health Concerns Assessment Noted Time PHQ-9 Depression Total Score: 16 023 11:30 AM EDT documented as of this encounter Care Teams Air Antisubmarine Officer Relationship Specialty Start Date End Date Leigh Self MD [address] [place] [address] PCP - General Family Medicine 11/17/22 09/10/23 NameAcosta MD [address] [place] [address] PCP - General Internal Medicine 12/08/23 Baldomero Fuentes FNP [address] [place] [address] Nurse Practitioner Family Medicine 06/20/23 documented as of this encounter
--- OUTSIDE RECORDS SUMMARY | 2024-10-21 18:35 | XMS_ITS | Encounter Summary ---
Author Organization [employer] Address [address] [facility] [address] 7t [place] [address] Care Team Providers Care Cinder Pit Crane Operator Name Role Phone Baldomero Fuentes Unavailable Unavailable Name, Acosta VALE Primary Care Provider [phone] Reason for Visit * Reason Comments Med Refill Encounter Details Date Type Department Care Team ([facility] st Contact Info) Description 08/28/2024 Refill [facility] [address] [place] [address] Katie Hardy, ERIC [address] [place] [address] Social History Tobacco Use Types Packs/Day Years [...] Description 01/08/2025 11:15 AM EDT Office Visit [facility] MEDICINE [address] [place] [address] Name, MD Acosta [address] [place] [address] documented as of this encounter Visit Diagnoses Not on filedocumented in this encounter Additional Health Concerns Assessment Noted Time PHQ-9 Depression Total Score: 14 024 11:32 AM EST documented as of this encounter Care Teams Cinder Pit Crane Operator Relationship Specialty Start Date End Date NameAcosta MD [address] [place] [address] PCP - General Internal Medicine 12/08/23 Baldomero Fuentes FNP Nurse Practitioner Family Medicine 06/20/23 documented as of this encounter
--- OUTSIDE RECORDS SUMMARY | 2024-10-21 18:35 | XMS_ITS | Encounter Summary ---
Author Organization [employer] Address 75 [facility] 7t [place] [address] Care Team Providers Care Embossing Clerk Name Role Phone Leigh Self MD Primary Care Provider [phone] Baldomero Fuentes Unavailable Unavailable Name, Acosta VALE Primary Care Provider [phone] Encounter Details Date Type Department Care Team (Late st Contact Info) Description 04/19/2023 Orders Only [facility] MEDICINE [address] [place] [address] Leigh Self MD [address] [place] [address] [phone] Glaucoma, unspecified glaucoma type, unspecified laterality (Primary [...] EDT Office Visit [facility] MEDICINE [address] [place] [address] Name, MD Acosta 230 [place] [address] documented as of this encounter Visit Diagnoses Diagnosis Glaucoma, unspecified glaucoma type, unspecified laterality- Primary Pain in eye, unspecified laterality documented in this encounter Additional Health Concerns Assessment Noted Time PHQ-9 Depression Total Score: 19 023 11:00 AM EDT documented as of this encounter Care Teams Embossing Clerk Relationship Specialty Start Date End Date Leigh Self MD [address] [place] [address] PCP - General Family Medicine 11/17/22 09/10/23 NameAcosta MD [address] [place] [address] PCP - General Internal Medicine 12/08/23 Baldomero Fuentes FNP [address] [place] [address] Nurse Practitioner Family Medicine 06/20/23 documented as of this encounter
--- OUTSIDE RECORDS SUMMARY | 2024-10-21 18:35 | XMS_ITS | Clinical Summary ---
Demographics Address [address] [facility] [address] [place] [address] Home Phone Mobile Phone Email Address Preferred Language Colombian; Castilian Marital Status Unknown Rastafari Affiliation Unknown Race White Ethnic Group or Author Organization [facility] Address [address] [place] [address] Care Team Providers Care Outdoor Illuminating Engineer Name Role Phone Unavailable Primary Care Provider [...] function, call Crisis or seek care at [facility] as needed. Since this provider will be retiring, patient will be tranferred to new [facility] psychiatric provider. She is aware that appointments will be via televisit, and that the provider will not be employed by [facility]. Therefore she gives verbal consent to share protected health information. Any issues or concerns, call [facility]. All her questions were answered and I [...] overwhelmed, needs to get connected with a piano case maker CHRISTOPHER, referrals will be recent. Assessment & [...] overwhelmed, needs to get connected with a piano case maker CHRISTOPHER. Assessment & Plan (03/25/2024 1:09 PM [...] uveitis? , keratitis? -I called today her [facility] [place] and was told by staff that pt [...] -advised in length to f w her molder inflated ball as soon as possible-already apt scheduled for 05/18/2023 -alarm signs and symptoms discussed Breast abscess 05/03/2023 History of smoking 05/03/2023 Overview (03/07/2024): Last Assessment & Plan: - Quit in 2021 Morbid obesity with body mas s index (BMI) of 50.0 to 59.9 in adult ([facility]) 05/03/2023 Overview (03/07/2024): Last Assessment & Plan: - work on lifestyle modifications - her dyspnea is partly due to physical deconditioning and excess weight Right knee pain 05/03/2023 Glaucoma 05/03/2023 Overview (03/07/2024): Last Assessment & Plan: - Following with [facility]. - Continue treatment plan per molder inflated ball Dizziness 05/03/2023 Abrasion, corneal 05/03/2023 History of kidney stones 04/10/2023 Lumbar spondylosis 07/29/2022 Overview (03/07/2024): Last Assessment & Plan: -Inadequate pain control. Denies red flag symptoms -Previously tried medications: APAP, NSAIDs, TRIPP-2 inhibitor, Percocet, Cyclobenzaprine, tramadol, topical agents, and most recently T#3 until appt for [facility]. --Pt states these medications [...] provider - unable to keep appt with [facility]. - pt requests to be referred to [facility] [place] [place] pain management and [facility] [place] [place] physical therapy Bipolar 2 disorder ([facility]) 07/11/2022 Overview (05/23/2024): Patient is angry [...] and adjust the medication as needed. Asthma ([facility] 06/18/2022 Overview (03/07/2024): Last Assessment & Plan: - previously tried Flovent, Advair, and Symbicort - will try Breo - refer to telecommunications officer Prediabetes 06/18/2022 Overview (03/07/2024): Last Assessment & [...] multidisciplinary approach -Unable to keep appt with [facility] due to transportation issue -Referred to pain management and physical therapy in [place]; pt states she has an upcoming appointment -Pt requests T#3 script and verbalized understanding that this will be her last script and there is no further script. Pt was urged to keep appointment with supervisor painting department. Hidradenitis suppurativa 01/07/2013 Overview (03/07/2024): Last Assessment [...] - Rx loperamide as requested by pt Immunizations Immunization Administration Dates Next Due DTAP [...] Date Smoking Tobacco: Former Cigarettes Q uit: 2007 Smokeless Tobacco: Never Tobacco Cessation:Counseling Given: Not [...] history exists Breast Cancer Screening (Mammogram) 2021 [id number] (2 - season) 2024 022 Imm-Influenza (#1) 2024 05/23/2011 Alcohol and Drug Screen 07/17/2024 Depression Annual Screen 07/17/2024 Diabetes Screening 12/07/2024 12/08/2023, 0 12/08/2023, 12/08/2023, Additional history exists Tobacco Screening 03/07/2025 03/07/2024 HIV Screening Completed 12/29/2022, 12/29/2022 Hepatitis C Screening Completed 12/29/2022 Cervical Ablation/Cold-Knife Conization Discontinued Cervical Cryotherapy Discontinued Colposcopy Discontinued Endometrial Biopsy Discontinued Excision/Leep Discontinued HPV Genotyping Discontinued Vaginal Pap Discontinued Vulvoscopy Discontinued [place] [employer]
--- OUTSIDE RECORDS SUMMARY | 2024-10-21 18:35 | XMS_ITS | Encounter Summary ---
Author Organization [employer] Address [address] 7t [place] [address] Care Team Providers Care Purification Director Name Role Phone Baldomero Fuentes Unavailable Unavailable Name, Acosta VALE Primary Care Provider Reason for Visit * Reason Comments Med Refill Encounter Details Date Type Department Care Team (Late st Contact Info) Description 09/19/2024 Refill C OPTOMETRY [address] [place] [address] AjErin, OD [address] [place] [address] Social History Tobacco Use Types Packs/Day Years [...] Office Visit [facility] MEDICINE [address] [place] [address] Name, MD Acosta [address] [place] [address] documented as of this encounter Visit Diagnoses Not on filedocumented in this encounter Additional Health Concerns Assessment Noted Time PHQ-9 Depression Total Score: 14 024 11:32 AM EST documented as of this encounter Care Teams Purification Director Relationship Specialty Start Date End Date NameAcosta MD [address] [place] [address] PCP - General Internal Medicine 12/08/23 Baldomero Fuentes FNP Nurse Practitioner Family Medicine 06/20/23 documented as of this encounter
--- OUTSIDE RECORDS SUMMARY | 2024-10-21 18:35 | XMS_ITS | Encounter Summary ---
Author Organization [employer] Address 75 [facility] 7t [place] [address] Care Team Providers Care Medical Service Technician Name Role Phone Leigh Sefl MD Primary Care Provider [phone] Baldomero Fuentes Unavailable Unavailable NameAcosta MD Primary Care Provider [phone] Reason for Visit * Reason Comments Med Refill Encounter Details Date Type Department Care Team (Late Contact Info) Description 12/05/2022 Refill [facility] MEDICINE 230 [place] [address] Jolie Ojeda, ANP 230 [place] [address] Lumbar spondylosis; Chronic bilateral low back pain, [...] Description 01/08/2025 11:15 AM EDT Office Visit [facility] MED[facility] 230 [place] [address] Name, [place] [address] documented as of this encounter Visit Diagnoses Diagnosis Lumbar spondylosis Lumbosacral spondylosis without myelopathy Chronic bilateral low back pain, unspecified whether sciatica present documented in this encounter Additional Health Concerns Assessment Noted Time PHQ-9 Depression Total Score: 16 023 11:30 AM EDT documented as of this encounter Care Teams Medical Service Technician Relationship Specialty Start Date End Date Leigh Self MD [address] [place] [address] PCP - General Family Medicine 11/17/22 09/10/23 Name, MD Acosta [address] [place] [address] PCP - General Internal Medicine 12/08/23 Baldomero Fuentes FNP [address] [place] [address] Nurse Practitioner Family Medicine 06/20/23 documented as of this encounter
--- OUTSIDE RECORDS SUMMARY | 2024-10-21 18:35 | XMS_ITS | Encounter Summary ---
Author Organization [employer] Address 75 [facility] 7t [place] [address] Care Team Providers Care Credit Clerk Name Role Phone Leigh Self MD Primary Care Provider [phone] Baldomero Fuentes Unavailable Unavailable Name, Acosta VALE Primary Care Provider [phone] Reason for Visit * Reason Onset Date Comments Results 01/09/2023 Encounter Details Date Type Department Care Team ([facility] st Contact Info) Description 01/09/2023 Telephone [facility] 230 [place], [place] [phone] Leigh Self MD 230 [place], [place] [phone] Results Social History Tobacco Use Types Packs/Day [...] done last week. Please contact pt at [phone] documented in this encounter Plan of Treatment Upcoming Encounters Date Type Department Care Team (Late st Contact Info) Description 01/08/2025 11:15 AM EDT Office Visit [facility] MED[facility]INE [address] [place] [address] NameAcosta MD [address] [place] [address] documented as of this encounter Visit Diagnoses Not on filedocumented in this encounter Additional Health Concerns Assessment Noted Time PHQ-9 Depression Total Score: 16 023 11:30 AM EDT documented as of this encounter Care Teams Credit Clerk Relationship Specialty Start Date End Date Leigh Self MD [address] [place] [address] PCP - General Family Medicine 11/17/22 09/10/23 NameAcosta MD [address] [place] [address] PCP - General Internal Medicine 12/08/23 Baldomero Fuentes FNP [address] [place] [address] Nurse Practitioner Family Medicine 06/20/23 documented as of this encounter
[2024-10-22 18:03] LABS: Lyme Abs Screen <0.90 index
[2024-10-24 06:22] LABS: HLA B27 Negative (Negative)
== END 2024-10-21 15:55 | disposition home or self-care (01) ==
LOC: HO.LAB 15:54
PROVIDERS: PCP Internal Medicine Geriatric Medicine; Visit Provider Ophthalmology
DX: Z13.89 Encounter for screening for other disorder (principal)
CPT/HCPCS: 36415; 85549; 86617; 86618; 86812

== ENCOUNTER 2024-12-08 14:13 | Emergency (ER) | payer MEDICAID, SELFPAY ==
[2024-12-08 14:17] VITALS: BP 110/65; PULSE 92; RESP 18; TEMP 36.4; O2SAT 98; BMI 53.5
--- NOTE | 2024-12-08 14:51 | ED.GENADULT ---
HPI - General Adult General Chief complaint: Eye Problems Stated complaint: pink eye Related Data Home Medications ?Medication ?Instructions ?Recorded ?Confirmed albuterol sulfate 90 mcg/actuation 2 inh inhalation Q4-6H PRN 09/09/20 breath activated powder inhaler fluticasone propionate 50 1 - 2 spray intranasal DAILY PRN 09/19/22 mcg/actuation nasal spray,suspension naloxone 4 mg/actuation nasal spray intranasal 09/19/22 nicotine (polacrilex) 2 mg buccal 2 mg PO Q2H PRN 09/19/22 lozenge nicotine (polacrilex) 4 mg buccal 4 mg PO Q2H PRN 09/19/22 lozenge Previous Rx's ?Medication ?Instructions ?Recorded cephalexin 500 mg capsule 500 mg PO Q6H 10 days #40 caps 02/14/21 doxycycline hyclate 100 mg tablet 100 mg PO BID #20 tabs 05/07/21 acetaminophen 500 mg capsule 1,000 mg (2 x 500 mg) PO Q8H PRN 09/17/22 pain #30 caps diazepam 5 mg tablet (Valium) 5 mg PO BID PRN muscle spasm #10 09/17/22 tabs ibuprofen 600 mg tablet 600 mg PO Q6H PRN pain #20 tabs 09/17/22 oxycodone 5 mg tablet 5 mg PO Q6H PRN pain #14 tabs 09/17/22 prednisone 20 mg tablet 60 mg (3 x 20 mg) PO DAILY 3 days 09/17/22 #9 tabs cane #1 ea 09/19/22 lidocaine 5 % topical patch 2 patch topical DAILY pain 30 days 09/19/22 #30 ea walker #1 ea 09/19/22 cefuroxime axetil 500 mg tablet 500 mg PO BID #14 tabs 10/07/22 ondansetron 4 mg disintegrating 4 mg PO Q8H PRN nausea and 02/26/23 tablet vomiting #10 tabs neomycin 3.5 mg/g-polymyxin B 1 appl ophthalmic-Right QID #3.5 03/20/23 10,000 unit/g-dexameth 0.1 % eye grams oint (Maxitrol) timolol 0.25 % eye drops 1 drp ophthalmic (eye) BID #5 mL 03/20/23 Allergies Allergy/AdvReac Type Severity Reaction Status Date / Time No Known Allergies Allergy Verified 12/08/24 14:19 [facility] Past Medical History Medical History Asthma Bipolar disorder Bronchitis Chronic low back pain Cigarette smoker Gestational diabetes Hidradenitis suppurativa Morbid obesity with body mass index (BMI) of 50.0 to 59.9 in adult Tuberculosis Surgical History History of 2 sections Family History Family History Mother Diabetes mellitus Father Diabetes mellitus Sister Diabetes mellitus Social History Social History Alcohol intake: never Cigarettes Per Day: 4 Advance Directives: No Advance Directives Information Provided: Yes Physical Exam ED Vital Signs: Vital Signs - 24 hr 12/08/24 14:17 Temperature 97.6 F Pulse Rate 92 Respiratory Rate 18 Blood Pressure 110/65 Pulse Oximetry 98 Oxygen Delivery Method Room Air BMI result Body Mass Index 53.5 Course Course Course Narrative: This is an RME performed by Eleazar Caceres CNP: Additional HPI, ROS, PE not included below will be deferred to primary provider. Patient is a 44-year-old female who presents emergency department for evaluation of right eye pruritus, discharge since this morning, on examination is concerning for conjunctivitis without evidence of periorbital cellulitis, EOMi. in addition complaining of to acute on chronic low back pain over the past 3 days unrelieved by medications at home, worse with position change. denies sx, no saddle paresthedia, LE paresthesias. no fevers or chills. No midline lumbar spine tenderness, step-offs, deformities requesting analgesia for back pain aside from acetaminophen/ibuprofen. Reevaluation(s) Reevaluation #1: Patient left without completing treatment Discharge Plan Discharge Clinical Impression: Conjunctivitis, Low back pain Patient Disposition: Left W/O Completing Treatment Prescriptions: No Action cephalexin 500 mg capsule 500 mg PO Q6H 10 Days Qty: 40 0RF doxycycline hyclate 100 mg tablet 100 mg PO BID Qty: 20 0RF oxycodone 5 mg tablet 5 mg PO Q6H PRN (Reason: pain) Qty: 14 0RF Rx Instructions: Partial Fill upon patient request. diazepam [Valium] 5 mg tablet 5 mg PO BID PRN (Reason: muscle spasm) Qty: 10 0RF prednisone 20 mg tablet 60 mg PO DAILY 3 Days Qty: 9 0RF ibuprofen 600 mg tablet 600 mg PO Q6H PRN (Reason: pain) Qty: 20 0RF acetaminophen 500 mg capsule 1,000 mg PO Q8H PRN (Reason: pain) Qty: 30 0RF ondansetron 4 mg tablet,disintegrating 4 mg PO Q8H PRN (Reason: nausea and vomiting) Qty: 10 0RF neomycin-polymyxin B-dexameth [Maxitrol] 3.5 mg/g-10,000 unit/g-0.1 % ointment 1 appl ophthalmic-Right QID Qty: 3.5 0RF Rx Instructions: space evenly during waking hours timolol 0.25 % drops 1 drp ophthalmic (eye) BID Qty: 5 0RF cefuroxime axetil 500 mg tablet 500 mg PO BID Qty: 14 0RF albuterol sulfate 90 mcg/actuation aerosol powdr breath activated 2 inh inhalation Q4-6H PRN naloxone 4 mg/actuation spray,non-aerosol intranasal nicotine (polacrilex) 2 mg lozenge 2 mg PO Q2H PRN nicotine (polacrilex) 4 mg lozenge 4 mg PO Q2H PRN fluticasone propionate 50 mcg/actuation spray,suspension 1 - 2 spray intranasal DAILY PRN lidocaine 5 % adhesive patch,medicated 2 patch topical DAILY 30 Days Qty: 30 1RF (DME) cane Device See Rx Instructions .Route Qty: 1 0RF Rx Instructions: As directed (ANDRESSA) emily [facility] See Rx Instructions .Route Qty: 1 0RF Rx Instructions: As directed Discharge Date/Time: 12/08/24 17:34
== END 2024-12-08 17:34 | disposition left against medical advice (07) ==
PROVIDERS: Emergency Provider Emergency Medicine; PCP Internal Medicine Geriatric Medicine
DX: H10.021 Other mucopurulent conjunctivitis, right eye (principal); M54.50 Low back pain, unspecified; L29.89 Other pruritus
CPT/HCPCS: 99281

== ENCOUNTER 2024-12-18 15:10 | Emergency (ER) | payer MEDICAID, SELFPAY ==
--- NOTE | ~2024-12-18 | XR_ITS ---
EXAMINATION: XR LUMBAR SPINE 2-3 VIEWS HISTORY: atraumatic R low back pain COMPARISON: Comparison is made with the prior examination dated the 3422. FINDINGS: AP, lateral, and coned down views of the lumbar spine are submitted. Osseous mineralization is normal. Five nonrib-bearing lumbar vertebral bodies are identified, maintaining normal height and alignment without evidence of fracture or spondylolisthesis. The intervertebral disc spaces are preserved. Again seen is minimal anterior spurring at multiple levels. The posterior elements are intact. The visualized paraspinal soft tissues are unremarkable. XR/XR lumbar spine 2-3V IMPRESSION: Minimal degenerative changes. Electronically signed by: Darrin Agarwal MD 12/18/2024 03:56 PM EDT
[2024-12-18 15:15] VITALS: BP 100/58; PULSE 102; RESP 20; TEMP 36.2; O2SAT 97; BMI 350.3
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
--- OUTSIDE RECORDS SUMMARY | 2024-12-18 15:36 | XMS_ITS | Encounter Summary ---
Author Organization [employer] Address [address] [place] [address] [address] [place] [address] Care Team Providers Care [employer] Name Role Phone BouchraagustinaBaldomero STRATEGIC SOLUTIONS CONSULTANT Unavailable Unavailable Name, Acosta VALE Primary Care Provider [phone] Reason for Visit * Reason Onset Date Comments Med Refill 02/13/2024 Encounter Details Date Type Department Care Team (Late st Contact Info) Description 02/13/2024 Refill [facility] [address] [place] [address] Name, MD Acosta [address] [place] [address] Morbid obesity with BMI of 45.0-49.9, adult (CMS/[facility]) Social History Tobacco Use Types Packs/Day Years [...] housing situation today? I have angel luis walter 12/08/[address] you li [...] Description 01/08/2025 11:15 AM EDT Office Visit [facility] [address] [place] [id number] Name, MD Acosta [address] [place] [id number] documented as of this encounter Visit Diagnoses Diagnosis Morbid obesity with BMI of 45.0-49.9, adult (CMS/HCC) documented in this encounter Additional Health Concerns Assessment Noted Time PHQ-9 Depression Total Score: 14 024 11:32 AM EST documented as of this encounter Care Teams [employer] Relationship Specialty Start Date End Date Name, MD Acosta [address] [place] [id number] PCP - General Internal Medicine 12/08/23 Baldomero Fuentes FNP Nurse Practitioner Family Medicine 06/20/23 documented as of this encounter
[2024-12-18 16:22] VITALS: BP 118/93; PULSE 91; RESP 16; TEMP 36.8; O2SAT 98
[2024-12-18 16:41] VITALS: BP 118/93; PULSE 91; RESP 16; TEMP 36.8; O2SAT 98
== END 2024-12-18 16:41 | disposition home or self-care (01) ==
PROVIDERS: Emergency Provider Emergency Medicine; PCP Internal Medicine Geriatric Medicine
DX: M62.830 Muscle spasm of back (principal); M54.16 Radiculopathy, lumbar region; M54.50 Low back pain, unspecified
CPT/HCPCS: 72100; 99283

== ENCOUNTER → 2024-12-18 15:16 | Outpatient (BNV) | payer MEDICAID, SELFPAY | PROVIDERS: PCP Internal Medicine Geriatric Medicine; Visit Provider Radiology Diagnostic Radiology | DX: M54.50 Low back pain, unspecified (principal) | CPT/HCPCS: 72100 ==

== ENCOUNTER 2025-01-23 13:06 | Outpatient (REF) | payer MEDICAID, SELFPAY ==
--- OUTSIDE RECORDS SUMMARY | 2025-01-23 13:10 | XMS_ITS | Clinical Summary ---
Demographics Address [address] [place] [address] Home Phone Mobile Phone Email Address Preferred Language Egyptian; Castilian Marital Status Unknown Gnosticism Affiliation Unknown Race White Ethnic Group or Author Organization [facility] Address [address] [place] [address] Care Team Providers Care Agricultural Produce Sorter Name Role Phone Unavailable Primary Care Provider [...] into both eyes twice a day 4 Active BREO ELLIPTA 100-25 mcg/dose dsdv Take 1 Puff by mouth every morning before breakfast Active ibuprofen 800 mg tablet Take 800 mg by mouth 3 (three) times daily as needed for moderate pain Active methocarbamoL (ROBAXIN) 750 mg tablet Take [...] NEEDED FOR PAIN AND SWELLING 4 Active topiramate (TOPAMAX) 200 mg tabletIndicatio ns:Bipolar 2 disorder ([facility]) Take 2 Tablets by mouth 2 (two) times daily for 30 days 120 Tablet 2 5 Active OLANZapine (ZYPREXA) 20 mg tabletIndicatio ns:Bipolar 2 disorder ([facility]),PTSD (post-traumatic stress disorder) Take 1 Tablet by mouth nightly at bedtime for 30 days 30 Tablet 2 5 Active zolpidem (AMBIEN CR) 6.25 mg CR tablet TAKE 1 TABLET BY MOUTH AT BEDTIME NEEDED FOR SLEEP 30 Tablet 2 5 Active Active Problems [...] function, call Crisis or seek care at [facility] as needed. Since this provider will be retiring, patient will be tranferred to new [facility] psychiatric provider. She is aware that appointments will be via televisit, and that the provider will not be employed by [facility]. Therefore she gives verbal consent to share protected health information. Any issues or concerns, call [facility]. All her questions were answered [...] overwhelmed, needs to get connected with a case reviewer [facility], referrals will be recent. Assessment & Plan [...] overwhelmed, needs to get connected with a case reviewer CHRISTOPHER. Assessment & Plan (03/25/2024 1:09 PM [...] uveitis? , keratitis? -I called today her truck operator [facility] at [place] and was told by staff that pt [...] -advised in length to f w her truck operator as soon as possible-already apt scheduled for 05/18/2023 -alarm signs and symptoms discussed Breast abscess 05/03/2023 History of smoking 05/03/2023 Overview (03/07/2024): Last Assessment & Plan: - Quit in 2021 Morbid obesity with body mas s index (BMI) of 50.0 to 59.9 in adult (CMS & [facility]) 05/03/2023 Overview (03/07/2024): Last Assessment & Plan: - work on lifestyle modifications - her dyspnea is partly due to physical deconditioning and excess weight Right knee pain 05/03/2023 Glaucoma 05/03/2023 Overview (03/07/2024): Last Assessment & Plan: - Following with [facility]. - Continue treatment plan per truck operator Dizziness 05/03/2023 Abrasion, corneal 05/03/2023 History of kidney stones 04/10/2023 Lumbar spondylosis 07/29/2022 Overview (03/07/2024): Last Assessment & Plan: -Inadequate pain control. Denies red flag symptoms -Previously tried medications: APAP, NSAIDs, TRIPP-2 inhibitor, Percocet, Cyclobenzaprine, tramadol, topical agents, and most recently T#3 until appt for [facility]. --Pt states these medications [...] provider - unable to keep appt with [facility]. - pt requests to be referred to [facility] pain management and [facility] physical therapy Bipolar 2 disorder ([facility]) 07/11/2022 Overview (05/23/2024): Patient is angry about [...] and adjust the medication as needed. Asthma ([facility]) 06/18/2022 Overview (03/07/2024): Last Assessment & Plan: - previously tried Flovent, Advair, and Symbicort - will try Breo - refer to shipyard painting supervisor Prediabetes 06/18/2022 Overview (03/07/2024): Last Assessment & [...] multidisciplinary approach -Unable to keep appt with [facility] due to transportation issue -Referred to pain management and physical therapy in [place]; pt states she has an upcoming appointment -Pt requests T#3 script and verbalized understanding that this will be her last script and there is no further script. Pt was urged to keep appointment with shipyard painter. Hidradenitis suppurativa 01/07/2013 Overview (03/07/2024): Last Assessment [...] Immunizations Immunization Administration Dates Next Due DTAP (Infanrix) 11/14/1985 DTP 1981,1981,1981 HEP B, PED/ADOL (GKLMIPQ-R-RUUA/RECOMBIVAX-PEDS) 05/23/2011,10/23/1996 Hep B, Adult/Adol (ZKMOLXL-E-JBLDX/RECOMBIVAX-ADULT) 09/19/1996 INFLUENZA, SEASONAL, INJECTABLE 05/23/2011 IPV (IPOL) 11/14/1985, 2,1981,05/18 MMR (MMR II/Priorix) 06/18/1993,06/23/1987 PNEUMOCOCCAL POLYSACCHARIDE PPV23 (Pneumovax 23) 11/15/2010 PNEUMOCOCCAL, UNSPECIFIED FORMULATION 11/15/2010 TDAP 11/15/2010 Td (adult),2 Lf tetanus toxo id (TDVAX), preservative free 09/14/1988,08/17/1987,06/16/1987 Family History Medical History Relation [...] history exists Breast Cancer Screening (Mammogram) 2021 [id number] (2 - season) 03/17/202410/29/ 022 Alcohol and Drug Screen 07/17/2024 Depression Annual Screen 07/17/2024 Tobacco Screening 03/07/2025 03/07/2024 Imm-Influenza (Season Ended) 2025 05/23/2011 Diabetes Screening 01/08/2026 01/08/2025, 0 12/08/2023, 12/08/2023, Additional history exists HIV Screening Completed 12/29/2022, 12/29/2022 Hepatitis C Screening Completed 12/29/2022 Cervical Ablation/Cold-Knife Conization Discontinued Cervical Cryotherapy Discontinued Colposcopy Discontinued Endometrial Biopsy Discontinued Excision/Leep Discontinued HPV Genotyping Discontinued Vaginal Pap Discontinued Vulvoscopy Discontinued Insurance [place] MEDICAID [facility]
--- OUTSIDE RECORDS SUMMARY | 2025-01-23 13:10 | XMS_ITS | Encounter Summary ---
Author Organization [employer] Address [address] [place] [address] [address] [place] [address] Care Team Providers Care Medical Case Worker Name Role Phone BouchraagustinaBaldomero TIN CAN LABORER Unavailable Unavailable Name, Acosta VALE Primary Care Provider [phone] Reason for Visit * Reason Onset Date Comments Med Refill 02/13/2024 Encounter Details Date Type Department Care Team (Late st Contact Info) Description 02/13/2024 Refill [facility] [address] [place] [address] Name, MD Acosta [address] [place] [address] Morbid obesity with BMI of 45.0-49.9, adult (CMS/[facility]) Social History Tobacco Use Types Packs/Day Years [...] as of this encounter Plan of Treatment Not on file documented as of this encounter Visit Diagnoses Diagnosis Morbid obesity with BMI of 45.0-49.9, adult (CMS/HCC) documented in this encounter Additional Health Concerns Assessment Noted Time PHQ-9 Depression Total Score: 14 024 11:32 AM EST documented as of this encounter Care Teams Medical Case Worker Relationship Specialty Start Date End Date Name, MD Acosta [address] [place] [address] PCP - General Internal Medicine 12/08/23 Baldomero Fuentes FNP Nurse Practitioner Family Medicine 06/20/23 documented as of this encounter
[2025-01-23 13:27] LABS: Hematocrit 39.0 % (37.0-47.0); Hemoglobin 12.9 g/dl (12.0-16.0); Mean Corpuscular HGB Conc 33.1 g/dl (31.0-35.0); Mean Corpuscular Hemoglobin 28.2 pg (27.0-33.0); Mean Corpuscular Volume 85.2 fL (80.0-98.0); NRBC Abs Auto 0.000 X10*3/uL (0.0-0.012); NRBC Pct Auto 0.0 /100WBC (0.0-0.2); Platelet Count 324 X10*3/uL (160-400); Red Blood Count 4.58 X10*6/uL (4.20-5.50); White Blood Count 7.0 X10*3/uL (4.8-10.8)
[2025-01-23 14:00] LABS: Alanine Aminotransferase 21 U/L (0-31); Albumin Level 4.1 g/dL (3.5-5.0); Alkaline Phosphatase 77 U/L (39-117); Anion Gap 11 (12-20); Aspartate Amino Transferase 23 U/L (5-31); Blood Urea Nitrogen 7 mg/dL (9-16); Calcium 8.7 mg/dL (8.4-10.2); Carbon Dioxide 24 mmol/L (22-29); Chloride 105 mmol/L (96-108); Estimated Glomerular Filt Rate > 60; Potassium 4.5 mmol/L (3.3-5.1); Sodium 135 mmol/L (135-145); Total Protein 7.6 g/dL (6.5-8.0)
[2025-01-23 14:17] LABS: Syphilis Screen Nonreactive (Nonreactive)
[2025-01-24 10:58] LABS: Lyme Abs Screen <0.90 index
[2025-01-28 06:58] LABS: Quantiferon TB Gold Plus 1 NEGATIVE (NEGATIVE); TB Test (QFT) Mitogen -Nil >10.00 IU/mL; TB Test (QFT) Nil 0.02 IU/mL; TB Test (QFT) Plus TB1 -Nil 0.00 IU/mL; TB Test (QFT) Plus TB2 -Nil 0.00 IU/mL
== END 2025-01-23 13:07 | disposition home or self-care (01) ==
LOC: HO.LAB 13:06
PROVIDERS: Visit Provider Student in an Organized Health Care Education/Training Program
DX: H20.13 Chronic iridocyclitis, bilateral (principal); H16.303 Unspecified interstitial keratitis, bilateral
CPT/HCPCS: 36415; 80053; 85027; 85652; 86140; 86431; 86480; 86617; 86618; 86780

== ENCOUNTER 2025-06-06 11:26 | Outpatient (REF) | payer MEDICAID, SELFPAY ==
--- OUTSIDE RECORDS SUMMARY | 2025-06-04 16:00 | XMS_ITS | Encounter Summary ---
Author Organization [employer] Address [address] [place] [address] 7 [place] [address] Care Team Providers Care Hvac/R Instructor Name Role Phone GinaBaldomero PROPELLER MECHANIC Unavailable Unavailable Name, Acosta VALE Primary Care Provider [phone] Reason for Visit * Reason Comments Follow-up Encounter Details Date Type Department Care Team ([facility] Contact Info) Description 06/04/2025 4:00 PM EST Office Visit [facility] MEDICINE [address] [place], [place] [id number] Name, MD Acosta [address] [place] [address] Morbid obesity with body mass index (BMI) of 50.0 to 59.9 in adult (HCC) (Primary Dx); Chronic pain syndrome; Pain of both eyes; Vision impairment; Screen for STD (sexually transmitted disease); Vaccine refused by patient Social History Tobacco Use Types Packs/Day Years Used Date Smoking Tobacco: Former Cigarettes Passive Smoke Exposure: Past Smokeless Tobacco: Never Alcohol Use Standard Drinks/Week Comments Never 0 (1 standard drink = 0.6 oz pur e alcohol) Depression Answer Date Recorded Patient Health Questionnaire-9 Score 20 01/08/2025 Patient Health Questionnaire-9 Score 20 01/08/2025 Last PHQ-9: Questionnaire Data Not on file 0 01/08/2025 Housing Stability Answer Date Recorded What is your housing situation today? I have angel luis watson 01/08/[address] you li ve. Do you have problems with any of the following? None of the above 01/08/2025 Food Insecurity Answer Date Recorded Within the past 12 months, y ou worried that your food would run out before you got money to buy more: Never True 01/08/2025 Within the past 12 months,th e food you bought just didn't last and you didn't have enough money to get more: Never True Transportation Answer Date Recorded In the past 12 months, has l ack of transportation kept you from medical appts, meetings, work or from getting things needed for daily living? No 01/08/2025 Utilities Answer Date Recorded In the past 12 months, has t he electric, gas, oil or water company threatened to shut off services in your home? No 01/08/2025 Depression Answer Date Recorded Patient Health Questionnaire-2 Score 5 01/08/2025 Internet Access Answer Date Recorded Internet Access Q1 Yes 01/08/2025 Internet Access Q2 Not on file 01/08/2025 Comments Unknown Sex and Gender Information Value Date Recorded Sex Assigned at Female 05/16/2022 10:15 AM EDT Legal Sex Female 10:15 AM EDT Gender Identity Female 05/16/2022 10:15 AM EDT Sexual Orientation Choose not to disclose 2021 10:15 AM EDT documented as of this encounter Last Filed Vital Signs Vital Sign Reading Time Taken Comments Blood Pressure 110/82 06/04/2025 4:35 PM EST Pulse 98 06/04/2025 4:35 PM EST Temperature 36.8 C (98.3 F) 06/04/2025 4:35 PM EST Respiratory Rate 24 06/04/2025 4:35 PM EST Oxygen Saturation 98% 06/04/2025 4:35 PM EST Inhaled Oxygen Concentration - - Weight 132 kg (290 lb) 06/04/2025 4:35 PM EST Height 157.5 cm (5' 2 ) 06/04/2025 4:35 PM EST Body Mass Index 53.04 06/04/2025 4:35 PM EST documented in this encounter Progress Notes * Acosta Jerez MD - 06/04/2025 4:00 PM EST Subjective Patient ID: Lynsey Casas is a 45 y.o. female who presents for Follow-up. Patient comes for follow-up visit. Since the last time I saw her she started on Mounjaro to help her with weight loss given her morbid obesity with significant comorbidities. She has been using the starting dose of Mounjaro for the past 2 weeks. So far no side effects. She agrees to go for fasting blood work and today she also requested STI testing. She has not been sexually active in several years. She continues to complain of severe pain. She has low back pain that is daily and severe and is not relieved by high-dose of NSAIDs and Lyrica. 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 She follows with ophthalmology regularly. She has been evaluated with plans to do enucleation of the right eye to try to control the pain. Review of Systems Constitutional: Negative for chills and fever. HENT: See HPI Respiratory: Negative for cough, shortness of breath and wheezing. Cardiovascular: Negative for chest pain, palpitations and leg swelling. Gastrointestinal: Negative for abdominal pain. Objective Vitals: 06/04/25 1635 BP: 110/82 BP Location: Left arm Patient Position: Sitting BP Cuff Size: Large adult Pulse: 98 Resp: 24 Temp: 98.3 ??F (36.8 ??C) TempSrc: Oral SpO2: 98% Weight: 290 lb (132 kg) Height: 5' 2 (1.575 m) Physical Exam Constitutional: Appearance: She is obese. Cardiovascular: Rate and Rhythm: Normal rate and regular rhythm. Pulmonary: Effort: Pulmonary effort is normal. No respiratory distress. Neurological: General: No focal deficit present. Comments: Antalgic gait Assessment/Plan Diagnoses and all orders for this visit: Morbid obesity with body mass index (BMI) of 50.0 to 59.9 in adult (HCC) Comments: I recommended to continue current dose of Mounjaro. I will increase the dose when she is due for refill. I recommended evaluation with fasting blood work listed below Orders: - CBC auto differential; Future - Comprehensive Metabolic Panel; Future - Lipid Panel, Standard; Future - TSH W/Reflex to FT4; Future Chronic pain syndrome Comments: I recommended to try to use NSAIDs sparingly, continue current dose of Lyrica. I will add Namenda to her medication regimen to try to control the pain She continues to follow with ophthalmology regularly for severe eye pain and there are plans to do right eye enucleation in the next couple of months. Orders: - memantine (Namenda) 5 MG tablet; Take 1 tablet (5 mg) by mouth 2 times daily. Pain of both eyes - memantine (Namenda) 5 MG tablet; Take 1 tablet (5 mg) by mouth 2 times daily. Vision impairment Screen for STD (sexually transmitted disease) Comments: I ordered STI testing at her request. Orders: - HIV-1/2 Antigen and Antibodies, Fourth Generation, with Reflexes; Future - Hepatitis C Antibody with Reflex to HCV, RNA, Quantitative, Real-Time PCR; Future - Hepatitis B surface antigen, EIA; Future - Hepatitis B Surface Antibody, Qualitative; Future - Chlamydia/N. Gonorrhoeae RNA, TMA, Vaginal - RPR (Monitor) with Reflex to Titer; Future Vaccine refused by patient Comments: She refused any vaccination today. documented in this encounter Plan of Treatment Scheduled Orders Name Type Priority Associated Diagnoses Orde r Schedule CBC auto differential Lab Routine Morbid obesity with body mass index (BMI) of 50.0 to 59.9 in adult (HCC) Expected: 06/04/2025 (Approximate), Expires: 06/04/2026 Comprehensive Metabolic Panel Lab Routine Morbid obesity with body mass index (BMI) of 50.0 to 59.9 in adult (HCC) Expected: 06/04/2025 (Approximate), Expires: 06/04/2026 Lipid Panel, Standard Lab Routine Morbid obesity with body mass index (BMI) of 50.0 to 59.9 in adult ([facility]) Expected: 06/04/2025 (Approximate), Expires: 06/04/2026 HIV-1/2 Antigen and Antibodies, Fourth Generation, with Reflexes Lab Routine Screen for STD (sexually transmitted disease) Expected: 06/04/2025 (Approximate), Expires: 06/04/2026 Hepatitis C Antibody with Reflex to HCV, RNA, Quantitative, Real-Time PCR Lab Routine Screen for STD (sexually transmitted disease) Expected: 06/04/2025, Expires: 06/04/2026 Hepatitis B surface antigen, EIA Lab Routine Screen for STD (sexually transmitted disease) Expected: 06/04/2025 (Approximate), Expires: 06/04/2026 Hepatitis B Surface Antibody, Qualitative Lab Routine Screen for STD (sexually transmitted disease) Expected: 06/04/2025 (Approximate), Expires: 06/04/2026 Chlamydia/N. Gonorrhoeae RNA, TMA, Vaginal Microbiology Routine Screen for STD (sexually transmitted disease) Ordered: 06/04/2025 RPR (Monitor) with Reflex to Titer Lab Routine Screen for STD (sexually transmitted disease) Expected: 06/04/2025, Expires: 06/04/2026 TSH W/Reflex to FT4 Lab Routine Morbid obesity with body mass index (BMI) of 50.0 to 59.9 in adult (HCC) Expected: 06/04/2025 (Approximate), Expires: 06/04/2026 documented as of this encounter Visit Diagnoses Diagnosis Morbid obesity with body mass index (BMI) of 50.0 to 59.9 in adult ([facility])- Primary Chronic pain syndrome Pain of both eyes Vision impairment Unspecified visual loss Screen for STD (sexually transmitted disease) Screening examination for venereal disease Vaccine refused by patient documented in this encounter Additional Health Concerns Assessment Noted Time PHQ-9 Depression Total Score: 20 01/08/ 025 11:22 AM EDT documented as of this encounter Care Teams Hvac/R Instructor Relationship Specialty Start Date End Date Name, MD Acosta [address] [place] [address] PCP - General Internal Medicine 12/08/23 Baldomero Fuentes FNP Nurse Practitioner Family Medicine 06/20/23 documented as of this encounter
--- OUTSIDE RECORDS SUMMARY | 2025-06-06 12:17 | XMS_ITS | Encounter Summary ---
Author Organization [employer] Address [address] [facility] 7t [place] [address] Care Team Providers Care Teacher Vocal Name Role Phone Gina Baldomeroclaudio OSPINA Unavailable Unavailable Name, Acosta VALE Primary Care Provider [phone] Reason for Visit * Reason Comments Med Refill Encounter Details Date Type Department Care Team ([facility] Contact Info) Description 03/26/2024 Refill C OPTOM[facility] [address] [place] [address] Aj, Erin, OD [address] [place] [address] Social History Tobacco Use Types Packs/Day Years [...] documented as of this encounter Care Teams Teacher Vocal Relationship Specialty Start Date End Date Name, MD Acosta [address] [place] [address] PCP - General Internal Medicine 12/08/23 Baldomero Fuentes FNP Nurse Practitioner Family Medicine 06/20/23 documented as of this encounter
--- OUTSIDE RECORDS SUMMARY | 2025-06-06 12:17 | XMS_ITS | Encounter Summary ---
Author Organization [employer] Address [address] [place] [address] 7t [place] [address] Care Team Providers Care Cook Barbecue Name Role Phone BouchraagustinaBaldomero EARTH SCIENCE FACULTY MEMBER Unavailable Unavailable Name, Acosta VALE Primary Care Provider [phone] Reason for Visit * Reason Comments Med Refill Encounter Details Date Type Department Care Team ([facility] Contact Info) Description 07/02/2024 Refill [facility] MEDICINE [address] [place], [place] [phone] Name, MD Acosta [address] [place] [address] Morbid obesity with BMI of 45.0-49.9, adult [...] obesity with BMI of 45.0-49.9, adult (CMS/HCC) ([facility]) documented in this encounter Additional Health Concerns Assessment Noted Time PHQ-9 Depression Total Score: 14 024 11:32 AM EST documented as of this encounter Care Teams Cook Barbecue Relationship Specialty Start Date End Date Name, MD Acosta [address] [place] [address] PCP - General Internal Medicine 12/08/23 Baldomero Fuentes FNP Nurse Practitioner Family Medicine 06/20/23 documented as of this encounter
--- OUTSIDE RECORDS SUMMARY | 2025-06-06 12:17 | XMS_ITS | Encounter Summary ---
Author Organization [employer] Address [address] [place] [address] 7t [place] [address] Care Team Providers Care Contact Lens Blocker Name Role Phone Leigh Self MD Primary Care Provider [phone] Baldomero Fuentes Unavailable Unavailable Name, Acosta VALE Primary Care Provider [phone] Reason for Visit * Reason Comments Med Refill Encounter Details Date Type Department Care Team ([facility] st Contact Info) Description 03/14/2023 Refill [facility] MED & PEDS [address] [place] [address] Leigh Slef MD [address] [place] [address] Social History Tobacco Use Types Packs/Day Years [...] Noted Time PHQ-9 Depression Total Score: 17 08/2 023 11:28 AM EDT documented as of this encounter Care Teams Contact Lens Blocker Relationship Specialty Start Date End Date Leigh Self MD [address] [place] [address] PCP - General Family Medicine 11/17/22 09/10/23 Acosta Jerez MD [address] [place] [address] PCP - General Internal Medicine 12/08/23 Baldomero Fuentes FNP [address] [place] [address] Nurse Practitioner Family Medicine 06/20/23 documented as of this encounter
--- OUTSIDE RECORDS SUMMARY | 2025-06-06 12:17 | XMS_ITS | Encounter Summary ---
Author Organization [employer] Address [address] [place] [address] 7t [place] [address] Care Team Providers Care Cemetery Keeper Name Role Phone Leigh Self MD Primary Care Provider [phone] Baldomero Fuentes Unavailable Unavailable Name, Acosta VALE Primary Care Provider [phone] Reason for Visit * Reason Comments Med Refill Encounter Details Date Type Department Care Team ([facility] st Contact Info) Description 01/02/2023 Refill [facility] MEDICINE [address] [place], [place] [phone] Baldomero Fuentes FNP Bipolar 2 disorder (CMS/HCC) Social History Tobacco Use Types Packs/Day [...] Visit Diagnoses Diagnosis Bipolar 2 disorder (CMS/HCC) (HCC) Other bipolar disorders documented in this encounter Additional Health Concerns Assessment Noted Time PHQ-9 Depression Total Score: 16 023 11:30 AM EDT documented as of this encounter Care Teams Cemetery Keeper Relationship Specialty Start Date End Date Leigh Self MD [address] [place] [address] PCP - General Family Medicine 11/17/22 09/10/23 Acosta Jerez MD [address] [place] [address] PCP - General Internal Medicine 12/08/23 Baldomero Fuentes FNP [address] [place] [address] Nurse Practitioner Family Medicine 06/20/23 documented as of this encounter
--- OUTSIDE RECORDS SUMMARY | 2025-06-06 12:17 | XMS_ITS | Encounter Summary ---
Author Organization [employer] Address [address] [facility] 7t [place] [address] Care Team Providers Care Sand Plant Attendant Name Role Phone Gina Baldomeroclaudio OSPINA Unavailable Unavailable Name, Acosta VALE Primary Care Provider [phone] Reason for Visit * Reason Comments Med Refill Encounter Details Date Type Department Care Team ([facility] Contact Info) Description 03/13/2024 Refill C OPTOMETRY [address] [place] [address] Aj, Erin, OD [address] [place] [address] Social History Tobacco Use Types Packs/Day Years [...] documented as of this encounter Care Teams Sand Plant Attendant Relationship Specialty Start Date End Date Name, MD Acosta [address] [place] [address] PCP - General Internal Medicine 12/08/23 Baldomero Fuentes FNP Nurse Practitioner Family Medicine 06/20/23 documented as of this encounter
--- OUTSIDE RECORDS SUMMARY | 2025-06-06 12:17 | XMS_ITS | Encounter Summary ---
Author Organization [employer] Address [address] [facility] 7t [place] [address] Care Team Providers Care Wafer Slicer Name Role Phone BouchraagustinaBaldomero ASSET ACCOUNTANT Unavailable Unavailable Name, Acosta VALE Primary Care Provider [phone] Reason for Visit * Reason Comments Med Refill Encounter Details Date Type Department Care Team ([facility] Contact Info) Description 02/26/2025 Refill [facility] MEDICINE [address] [place], [place] [phone] Name, MD Acosta [address] [place] [address] Social History Tobacco Use Types Packs/Day Years [...] Noted Time PHQ-9 Depression Total Score: 20 025 11:22 AM EDT documented as of this encounter Care Teams Wafer Slicer Relationship Specialty Start Date End Date Name, MD Acosta [address] [place] [address] PCP - General Internal Medicine 12/08/23 Baldomero Fuentes FNP Nurse Practitioner Family Medicine 06/20/23 documented as of this encounter
--- OUTSIDE RECORDS SUMMARY | 2025-06-06 12:17 | XMS_ITS | Encounter Summary ---
Author Organization [employer] Address [address] [facility] 7t [place] [address] Care Team Providers Care Community Associate Name Role Phone BouchraagustinaBaldomero HOTEL FRONT DESK CLERK Unavailable Unavailable Name, Acosta VALE Primary Care Provider [phone] Reason for Visit * Reason Comments Med Refill Encounter Details Date Type Department Care Team ([facility] Contact Info) Description 02/25/2025 Refill [facility] MEDICINE [address] [place], [place] [phone] Name, MD Acosta [address] [place] [address] Social History Tobacco Use Types Packs/Day Years [...] documented as of this encounter Care Teams Community Associate Relationship Specialty Start Date End Date Name, MD Acosta [address] [place] [address] PCP - General Internal Medicine 12/08/23 Baldomero Fuentes FNP Nurse Practitioner Family Medicine 06/20/23 documented as of this encounter
--- OUTSIDE RECORDS SUMMARY | 2025-06-06 12:17 | XMS_ITS | Encounter Summary ---
Author Organization [employer] Address [address] [place] [address] 7t [place] [address] Care Team Providers Care Family Law Mediator Name Role Phone Eboni Cannon Primary Care Provider [phone] Leigh Self MD Primary Care Provider [phone] Baldomero Fuentes Unavailable Unavailable Name, Acosta VALE Primary Care Provider [phone] Reason for Visit * Reason Onset Date Comments Med Refill Percocet Denied 08/23/2022 Notified of Perc ocet not being refilled Encounter Details Date Type Department Care Team (Late st Contact Info) Description 08/23/2022 Refill [facility] MEDICINE [address] [place] [address] Eboni Cannon FNP [address] [place], [place] [phone] Chronic bilateral low back pain, unspecified whether [...] she does not have dx to support custodial usage of opiate. Pt stated she had to cancel her pain management clinic appt 08/23/22 d/t child was ill and she did not have a staking technician. Pt states she is rescheduled for [facility] [place] and that she has a staking technician lined up. 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 Call was transferred to vt . Pt upset/ irate due to medication oxycodone not being signed off on . Provider advised will send out today ./ screen writer reminded pt about medication protocol . ( Call health center 3 days prior to medication running out/sign off may take up to 72 hours . ) documented in this encounter Plan of Treatment Not on file documented as of this encounter Visit Diagnoses Diagnosis Chronic bilateral low back pain, unspecified whether sciatica present Lumbar spondylosis Lumbosacral spondylosis without myelopathy documented in this encounter Additional Health Concerns Assessment Noted Time PHQ-9 Depression Total Score: 21 06/30/ 022 3:41 PM EST documented as of this encounter Care Teams Family Law Mediator Relationship Specialty Start Date End Date Eboni Cannon FNP [address] [place] [address] PCP - General Family Medicine 03/14/22 10/04/22 Leigh Self MD [address] [place] [address] PCP - General Family Medicine 11/17/22 09/10/23 Name, MD Acosta [address] [place] [address] PCP - General Internal Medicine 12/08/23 Baldomero uFentes FNP [address] [facility] [place] [address] Nurse Practitioner Family Medicine 06/20/23 documented as of this encounter
--- OUTSIDE RECORDS SUMMARY | 2025-06-06 12:17 | XMS_ITS | Encounter Summary ---
Author Organization [employer] Address [address] [facility] [address] 7[address] [place] [address] Care Team Providers Care Area Operations Director Name Role Phone Leigh Self MD Primary Care Provider [phone] Baldomero Fuentes Unavailable Unavailable Name, Acosta VALE Primary Care Provider [phone] Reason for Visit * Reason Comments Med Refill Encounter Details Date Type Department Care Team (Late st Contact Info) Description 05/19/2023 Refill [facility] [address] [place] [address] Marta Marroquin FNP Mild intermittent asthma with acute exacerbation Social [...] AM EDT documented as of this encounter Functional Status * Over the past 2 weeks, how often have you been bothered by any of the following problems? Question Answer Date of Assessment Author Patient Health Questionnaire -2 Score 4 05/22/2023 11:17 AM Suri Delcid [place] * How difficult have these problems made it for you to do your work, take care of things at home, or get along with other people? Answer Date of Assessment Author Very difficult 05/22/2023 11:17 AM Kassidy Delcid [place] * Over the past 2 weeks, how often have you been bothered by any of the following problems? Question Answer Date of Assessment Author Little interest or pleasure in doing things More than half the days 05/22/2023 11:17 AM Kassidy Delcid [place] Feeling down, depressed, or hopeless More than half the days 05/22/2023 11:17 AM Kassidy Delcid [place] Trouble falling or staying asleep, or sleeping too much Nearly every day 05/22/2023 11:17 AM Kassidy Delcid [place] Feeling tired or having little energy Several days 05/22/2023 11:17 AM Kassidy Delcid [place] Poor appetite or overeating Several days 05/22/2023 11:17 AM Kassidy Delcid [place] Feeling bad about yourself - or that you are a failure or have let yourself or your family down Nearly every day 05/22/2023 11:17 AM Kassidy Delcid [place] Trouble concentrating on things, such as reading the newspaper or watching television Nearly every day 05/22/2023 11:17 AM Kassidy Delcid MA Moving or speaking so slowly that other people could have noticed? Or the opposite - being so fidgety or restless that you have been moving around a lot more than usual. More than half the days 05/22/2023 11:17 AM Kassidy Delcid MA Thoughts that you would be better off or hurting yourself in some way Not at all 05/22/2023 11:17 AM Kassidy Delcid MA Patient Health Questionnaire-9 Score 17 05/22/2023 11:17 AM Kassidy Delcid [place] documented as of this encounter Plan of Treatment Not on file documented as of this encounter Visit Diagnoses Diagnosis Mild intermittent asthma with acute exacerbation documented in this encounter Additional Health Concerns Assessment Noted Time PHQ-9 Depression Total Score: 19 023 11:00 AM EDT documented as of this encounter Care Teams Area Operations Director Relationship Specialty Start Date End [place] [address] PCP - General Family Medicine 11/17/22 09/10/23 [place] [address] PCP - General Internal Medicine 12/08/23 Baldomero Fuentes FNP [address] [place] [address] Nurse Practitioner Family Medicine 06/20/23 documented as of this encounter
--- OUTSIDE RECORDS SUMMARY | 2025-06-06 12:17 | XMS_ITS | Encounter Summary ---
Author Organization [employer] Address [address] [place] [address] 7t [place] [address] Care Team Providers Care Route Aide Name Role Phone Leigh Self MD Primary Care Provider Baldomero Fuentes Unavailable Unavailable Name, Acosta VALE Primary Care Provider [phone] Reason for Visit * Reason Comments Med Refill Encounter Details Date Type Department Care Team (Late st Contact Info) Description 12/05/2022 Refill [facility] MEDICINE [address] [place] [address] Jolie Ojeda, ANP [address] [place], [place] [phone] Lumbar spondylosis; Chronic bilateral low back pain, [...] documented as of this encounter Care Teams Route Aide Relationship Specialty Start Date End Date Leigh Self MD [address] [place] [address] PCP - General Family Medicine 11/17/22 09/10/23 Acosta Jerez MD [address] [place] [address] PCP - General Internal Medicine 12/08/23 Baldomero Fuentes FNP [address] [place] [address] Nurse Practitioner Family Medicine 06/20/23 documented as of this encounter
--- OUTSIDE RECORDS SUMMARY | 2025-06-06 12:17 | XMS_ITS | Encounter Summary ---
Author Organization [employer] Address [address] [place] [address] 7 [place] [address] Care Team Providers Care Mechanism Inspector Name Role Phone BouchraagustinaBaldomero BASTING PULLER Unavailable Unavailable Name, Acosta VALE Primary Care Provider [phone] Reason for Visit * Reason Onset Date Comments Medication Question 05/02/2025 Encounter Details Date Type Department Care Team ([facility] Contact Info) Description 05/02/2025 Telephone [facility] MEDICINE 230 [place], [place] [phone] Name, MD Acosta 230 [place] [address] Medication Question Social History Tobacco Use Types Packs/Day Years [...] encounter Miscellaneous Notes * Telephone Encounter - Michael Garcia - 05/02/2025 12:00 PM EDT Tc from pt requesting a call back to discuss weight loss medication and pain medication Contact pt mom at [phone] documented in this encounter Plan of Treatment Not on file documented as of this encounter Visit Diagnoses Not on filedocumented in this encounter Additional Health Concerns Assessment Noted Time PHQ-9 Depression Total Score: 20 025 11:22 AM EDT documented as of this encounter Care Teams Mechanism Inspector Relationship Specialty Start Date End Date Name, MD Acosta [address] [place] [address] PCP - General Internal Medicine 12/08/23 Baldomero Fuentes FNP Nurse Practitioner Family Medicine 06/20/23 documented as of this encounter
--- OUTSIDE RECORDS SUMMARY | 2025-06-06 12:17 | XMS_ITS | Encounter Summary ---
Author Organization [employer] Address [address] [place] [address] 7t [place] [address] Care Team Providers Care Cyber Defense Incident Responder Name Role Phone Leigh Self MD Primary Care Provider [phone] Baldomero Fuentes Unavailable Unavailable Name, Acosta VALE Primary Care Provider [phone] Reason for Visit * Reason Comments Med Refill Encounter Details Date Type Department Care Team (Late st Contact Info) Description 01/03/2023 Refill [facility] MEDICINE 230 [place] [address] Jolie Ojeda, ANP [address] [place], [place] [phone] Lumbar spondylosis; Chronic bilateral low back pain, [...] documented as of this encounter Care Teams Cyber Defense Incident Responder Relationship Specialty Start Date End Date Leigh Self MD [address] [place] [address] PCP - General Family Medicine 11/17/22 09/10/23 Acosta Jerez MD [address] [place] [address] PCP - General Internal Medicine 12/08/23 Baldomero Fuentes FNP [address] [place] [address] Nurse Practitioner Family Medicine 06/20/23 documented as of this encounter
--- OUTSIDE RECORDS SUMMARY | 2025-06-06 12:17 | XMS_ITS | Encounter Summary ---
Author Organization [employer] Address [address] [place] [address] 7t [place] [address] Care Team Providers Care Car Rental Agency Manager Name Role Phone Leigh Self MD Primary Care Provider Baldomero Fuentes Unavailable Unavailable Name, Acosta VALE Primary Care Provider [phone] Reason for Visit * Reason Comments Med Refill Encounter Details Date Type Department Care Team (Late st Contact Info) Description 06/12/2023 Refill [facility] MEDICINE 230 [place] [address] Leigh Self MD [address] [place], [place] [phone] Lumbar spondylosis; Chronic bilateral low back pain, [...] documented as of this encounter Care Teams Car Rental Agency Manager Relationship Specialty Start Date End Date Leigh Self MD [address] [place] [address] PCP - General Family Medicine 11/17/22 09/10/23 [place] [address] PCP - General Internal Medicine 12/08/23 Baldomero Fuentes FNP [address] [place] [address] Nurse Practitioner Family Medicine 06/20/23 documented as of this encounter
--- OUTSIDE RECORDS SUMMARY | 2025-06-06 12:17 | XMS_ITS | Encounter Summary ---
Author Organization [employer] Address [address] [place] [address] 7 [place] [address] Care Team Providers Care Ship Fastener Name Role Phone GinaBaldomero [employer] Unavailable Unavailable Name, Acosta VALE Primary Care Provider [phone] Reason for Visit * Reason Onset Date Comments Med Refill 02/11/2025 Encounter Details Date Type Department Care Team ([facility] st Contact Info) Description 02/11/2025 Telephone [facility] MEDICINE 230 [place], [place] [phone] Name, MD Acosta 230 [place] [address] Med Refill Social History Tobacco Use Types Packs/Day Years [...] encounter Miscellaneous Notes * Telephone Encounter - Zayda Darnell RN - 02/13/2025 5:04 PM EDT Call returned to pt to clarify request for inactive medications. Pt states that she saw her counselor who rx her zoloft and another med she cannot remember the name of. States meds were sent to [facility] pharmacy and she called to advise pcp. T/C to [facility] pharmacy. Ed confirms that Amanda Maya rx sertraline 50 mg po daily, lurasidone 40 mg podaily (on order), pregabalin 50 mg tid and zolpidem ED 6.25- take one po at hs. Med modules updated.Note sent to pcp as FYI. * Telephone Encounter - Herbert Velasquez - 02/11/2025 1:12 PM EDT TC from pt requesting medication refill. Medications needing refill : Olanzapine 10 mg Topiramate 100mg To be sent to: [facility] documented in this encounter Plan of Treatment Not on file documented as of this encounter Visit Diagnoses Not on filedocumented in this encounter Additional Health Concerns Assessment Noted Time PHQ-9 Depression Total Score: 20 01/08/ 025 11:22 AM EDT documented as of this encounter Care Teams Ship Fastener Relationship Specialty Start Date End Date Name, MD Acosta 230 [place] [address] PCP - General Internal Medicine 12/08/23 Baldomero Fuentes FNP Nurse Practitioner Family Medicine 06/20/23 documented as of this encounter
--- OUTSIDE RECORDS SUMMARY | 2025-06-06 12:17 | XMS_ITS | Encounter Summary ---
Author Organization [employer] Address [address] [place] [address] 7t [place] [address] Care Team Providers Care Driver/Merchandiser Name Role Phone Eboni Cannon Primary Care Provider [phone] Leigh Self MD Primary Care Provider [phone] Baldomero Fuentes Unavailable Unavailable Name, Acosta VALE Primary Care Provider [phone] Reason for Visit * Reason Comments Med Refill Encounter Details Date Type Department Care Team (Late st Contact Info) Description 09/08/2022 Refill [facility] MEDICINE 230 [place] [address] Eboni Cannon FNP [address] [place], [place] [phone] Pain Social History Tobacco Use Types Packs/Day [...] documented as of this encounter Care Teams Driver/Merchandiser Relationship Specialty Start Date End Date Eboni Cannon FNP [address] [place] [address] PCP - General Family Medicine 03/14/22 10/04/22 Leigh Self MD [address] [place] [address] PCP - General Family Medicine 11/17/22 09/10/23 Acosta Jerez MD [address] [place] [address] PCP - General Internal Medicine 12/08/23 Baldomero Fuentes FNP [address] [place] [address] Nurse Practitioner Family Medicine 06/20/23 documented as of this encounter
--- OUTSIDE RECORDS SUMMARY | 2025-06-06 12:17 | XMS_ITS | Encounter Summary ---
Author Organization [employer] Address [address] [facility] 7t [place] [address] Care Team Providers Care It Generalist Name Role Phone Leigh Self MD Primary Care Provider [phone] Baldomero Fuentes Unavailable Unavailable Name, Acosta VALE Primary Care Provider [phone] Reason for Visit * Reason Comments Med Refill Encounter Details Date Type Department Care Team ([facility] st Contact Info) Description 08/15/2023 Refill [facility] MEDICINE [address] [place] [address] Eboni Cannon FNP [address] [place], [place] [phone] Mild persistent asthma without complication Social History [...] documented as of this encounter Care Teams It Generalist Relationship Specialty Start Date End Date Leigh Self MD 230 [place] [address] PCP - General Family Medicine 11/17/22 09/10/23 [place] [address] PCP - General Internal Medicine 12/08/23 Baldomero Fuentes FNP 230 [place] [address] Nurse Practitioner Family Medicine 06/20/23 documented as of this encounter
--- OUTSIDE RECORDS SUMMARY | 2025-06-06 12:17 | XMS_ITS | Encounter Summary ---
Author Organization [employer] Address [address] [place] [address] 7t [place] [address] Care Team Providers Care Commercial Credit Analyst Name Role Phone Baldomero Fuentes Unavailable Unavailable Name, Acosta VALE Primary Care Provider [phone] Reason for Visit * Reason Onset Date Comments chart prep 06/03/2025 Encounter Details Date Type Department Care Team ([facility] st Contact Info) Description 06/03/2025 Telephone [facility] MEDICINE 230 [place], [place] [phone] Shreya Hummel MA chart prep Social History Tobacco Use Types Packs/Day Years [...] encounter Miscellaneous Notes * Telephone Encounter - Shreya Hummel MA - 06/03/2025 12:35 PM EST Chart Prep Labs: done Images: not done Referrals: 03/19/25 3:30 PM [facility] Appt cancelled by patient Vaccines due: Covid, Flu, PCV20, and Hep B Screenings: mammogram and pap smear Overdue care gaps: Tobacco,LMP documented in this encounter Plan of Treatment Not on file documented as of this encounter Visit Diagnoses Not on filedocumented in this encounter Additional Health Concerns Assessment Noted Time PHQ-9 Depression Total Score: 20 025 11:22 AM EDT documented as of this encounter Care Teams Commercial Credit Analyst Relationship Specialty Start Date End Date Name, MD Acosta 230 [place] [address] PCP - General Internal Medicine 12/08/23 Baldomero Fuentes FNP Nurse Practitioner Family Medicine 06/20/23 documented as of this encounter
--- OUTSIDE RECORDS SUMMARY | 2025-06-06 12:17 | XMS_ITS | Encounter Summary ---
Author Organization [employer] Address [address] [place] [address] 7t [place] [address] Care Team Providers Care Chassis Inspector Name Role Phone BouchraagustinaBaldomero [employer] ARCHITECT Unavailable Unavailable Name, Acosta VALE Primary Care Provider [phone] Reason for Visit * Reason Onset Date Comments Med Refill 02/13/2024 Encounter Details Date Type Department Care Team (Late st Contact Info) Description 02/13/2024 Refill [facility] MEDICINE 230 [place] [address] Name, MD Acosta 230 [place] [address] Morbid obesity with BMI of 45.0-49.9, adult (CMS/[facility]) Social History Tobacco Use [...] obesity with BMI of 45.0-49.9, adult (CMS/HCC) ([facility]) documented in this encounter Additional Health Concerns Assessment Noted Time PHQ-9 Depression Total Score: 14 024 11:32 AM EST documented as of this encounter Care Teams Chassis Inspector Relationship Specialty Start Date End Date Name, MD Acosta 230 [place] [address] PCP - General Internal Medicine 12/08/23 Baldomero Fuentes FNP Nurse Practitioner Family Medicine 06/20/23 documented as of this encounter
--- OUTSIDE RECORDS SUMMARY | 2025-06-06 12:17 | XMS_ITS | Encounter Summary ---
Author Organization [employer] Address [address] [facility] 7t [place] [address] Care Team Providers Care Inventory Clerk Name Role Phone Baldomero Fuentes Unavailable Unavailable Name, Acosta VALE Primary Care Provider [phone] Reason for Visit * Reason Comments Med Refill Encounter Details Date Type Department Care Team ([facility] st Contact Info) Description 09/27/2023 Refill [facility] MEDICINE 230 [place], [place] [phone] Baldomero Fuentes FNP Social History Tobacco Use [...] documented as of this encounter Care Teams Inventory Clerk Relationship Specialty Start Date End Date Name, MD Acosta [address] [place] [address] PCP - General Internal Medicine 12/08/23 Baldomero Fuentes FNP Nurse Practitioner Family Medicine 06/20/23 documented as of this encounter
--- OUTSIDE RECORDS SUMMARY | 2025-06-06 12:17 | XMS_ITS | Encounter Summary ---
Author Organization [employer] Address [address] [facility] 7t [place] [address] Care Team Providers Care Bookkeeper Receptionist Name Role Phone GinaBaldomero STEM MAKER Unavailable Unavailable Name, Acosta VALE Primary Care Provider [phone] Reason for Visit * Reason Comments Med Refill Encounter Details Date Type Department Care Team ([facility] Contact Info) Description 08/28/2024 Refill [facility] MED & PEDS [address] [place] [address] Katie Hardy, ERIC [address] [place] [address] Social History Tobacco Use Types Packs/Day Years [...] documented as of this encounter Care Teams Bookkeeper Receptionist Relationship Specialty Start Date End Date Name, MD Acosta 230 [place] [address] PCP - General Internal Medicine 12/08/23 Baldomero Fuentes FNP Nurse Practitioner Family Medicine 06/20/23 documented as of this encounter
--- OUTSIDE RECORDS SUMMARY | 2025-06-06 12:17 | XMS_ITS | Encounter Summary ---
Author Organization [employer] Address [address] [facility] 7t [place] [address] Care Team Providers Care Diving Coach Name Role Phone GinaBaldomero BHAVESH Unavailable Unavailable Name, Acosta VALE Primary Care Provider [phone] Encounter Details Date Type Department Care Team (Latest Contact Info) Description 06/04/2025 Travel Social History Tobacco Use Types Packs/Day Years [...] documented as of this encounter Care Teams Diving Coach Relationship Specialty Start Date End Date Name, MD Acosta 230 [place] [address] PCP - General Internal Medicine 12/08/23 Baldomero Fuentes FNP Nurse Practitioner Family Medicine 06/20/23 documented as of this encounter
--- OUTSIDE RECORDS SUMMARY | 2025-06-06 12:17 | XMS_ITS | Encounter Summary ---
Author Organization [employer] Address [address] [place] [address] 7t [place] [address] Care Team Providers Care Medicare Specialist Name Role Phone Leigh Self MD Primary Care Provider [phone] Baldomero Fuentes Unavailable Unavailable Name, Acosta VALE Primary Care Provider [phone] Reason for Visit * Reason Comments Med Refill Encounter Details Date Type Department Care Team ([facility] st Contact Info) Description 06/01/2023 Refill [facility] MEDICINE 230 [place], [place] [phone] Leigh Self MD 230 [place], [place] [phone] Chronic bilateral low back pain, unspecified whether [...] documented as of this encounter Care Teams Medicare Specialist Relationship Specialty Start Date End Date Leigh Self MD 230 [place] [address] PCP - General Family Medicine 11/17/22 09/10/23 [place] [address] PCP - General Internal Medicine 12/08/23 Baldomero Fuentes FNP [address] [place] [address] Nurse Practitioner Family Medicine 06/20/23 documented as of this encounter
--- OUTSIDE RECORDS SUMMARY | 2025-06-06 12:17 | XMS_ITS | Encounter Summary ---
Author Organization [employer] Address [address] [place] [address] 7t [place] [address] Care Team Providers Care Traffic Observer Name Role Phone Leigh Self MD Primary Care Provider [phone] Baldomero Fuentes Unavailable Unavailable Name, Acosta VALE Primary Care Provider Reason for Visit * Reason Onset Date Comments FYI 08/11/2023 Encounter Details Date Type Department Care Team (Late st Contact Info) Description 08/11/2023 Telephone [facility] MEDICINE 230 [place], [place] [phone] Leigh Self MD 230 [place], [place] [phone] FY Social History Tobacco Use Types Packs/Day [...] 9:33 AM EST TC from Monica with [facility] dimension quarry supervisor calling to inform they will be screening pt out . All of pt evacuation will be faxed over to provided fax # [phone]. Any question contact phone # [phone] documented in this encounter Plan of Treatment Not on file documented as of this encounter Visit Diagnoses Not on filedocumented in this encounter Additional Health Concerns Assessment Noted Time PHQ-9 Depression Total Score: 14 024 11:32 AM EST documented as of this encounter Care Teams Traffic Observer Relationship Specialty Start Date End Date Leigh Self MD 230 [place] [address] PCP - General Family Medicine 11/17/22 09/10/23 Acosta Jerez MD [address] [place] [address] PCP - General Internal Medicine 12/08/23 Baldomero Fuentes FNP 230 [place] [address] Nurse Practitioner Family Medicine 06/20/23 documented as of this encounter
--- OUTSIDE RECORDS SUMMARY | 2025-06-06 12:17 | XMS_ITS | Encounter Summary ---
Author Organization [employer] Address [address] [place] [address] 7t [place] [address] Care Team Providers Care Tip Stitcher Name Role Phone BouchraagustinaBaldomero MANAGER OF EXHIBITIONS AND COLLECTIONS Unavailable Unavailable Name, Acosta VALE Primary Care Provider [phone] Reason for Visit * Reason Onset Date Comments Call Back Request 06/04/2025 Lab Orders 06/04/2025 Referral 06/04/2025 Called pt to yosvany bell media services director appointment pt not interested Encounter Details Date Type Department Care Team ([facility] st Contact Info) Description 06/04/2025 Telephone [facility] MEDICINE 230 [place], [place] [phone] Name, MD Acosta [address] [place] [address] Call Back Request; Lab Orders; Referral (Called pt to book media services director appointment pt not interested ) Social History Tobacco Use Types Packs/Day Years [...] encounter Miscellaneous Notes * Telephone Encounter - Mayelin Spear RN - 06/04/2025 4:30 PM EST Pt seen by PCP today and being evaluated. Pt is to follow up with PCP as needed. * Telephone Encounter - Shaina Lin - 06/04/2025 11:27 AM EST Called pt to book media services director appointment pt not interested * Telephone Encounter - Michael Garcia - 06/04/2025 11:19 AM EST Tc from pt requesting lab orders to be sent to lab including STD check . Also would like an order for a Xray for pt back Contact pt at [phone] documented in this encounter Plan of Treatment Not on file documented as of this encounter Visit Diagnoses Not on filedocumented in this encounter Additional Health Concerns Assessment Noted Time PHQ-9 Depression Total Score: 20 01/08/ 025 11:22 AM EDT documented as of this encounter Care Teams Tip Stitcher Relationship Specialty Start Date End Date Name, MD Acosta 230 [place] [address] PCP - General Internal Medicine 12/08/23 Baldomero Fuentes FNP Nurse Practitioner Family Medicine 06/20/23 documented as of this encounter
--- OUTSIDE RECORDS SUMMARY | 2025-06-06 12:17 | XMS_ITS | Encounter Summary ---
Author Organization [employer] Address [address] [place] [address] 7t [place] [address] Care Team Providers Care Client Onboarding Analyst Name Role Phone Leigh Self MD Primary Care Provider [phone] Baldomero Fuentes Unavailable Unavailable Name, Acosta VALE Primary Care Provider [phone] Encounter Details Date Type Department Care Team (Late st Contact Info) Description 04/19/2023 Orders Only [facility] MEDICINE 230 [place], [place] [phone] Leigh Self MD 230 [place], [place] [phone] Glaucoma, unspecified glaucoma type, unspecified laterality (Primary [...] documented as of this encounter Care Teams Client Onboarding Analyst Relationship Specialty Start Date End Date Leigh Self MD 230 [place] [address] PCP - General Family Medicine 11/17/22 09/10/23 Acosta Jerez MD [address] [place] [address] PCP - General Internal Medicine 12/08/23 Baldomero Fuentes FNP [address] [place] [address] Nurse Practitioner Family Medicine 06/20/23 documented as of this encounter
--- OUTSIDE RECORDS SUMMARY | 2025-06-06 12:17 | XMS_ITS | Clinical Summary ---
Author Organization [employer] Address [address] [place] [address] 7[address] [place] [address] Care Team Providers Care Juvenile Justice Officer Name Role Phone Baldomero Fuentes Unavailable Unavailable Name, Acosta VALE Primary Care Provider [phone] Allergies No known active allergies Medications * This document contains information received from the source organization and may not represent a complete record from that organization. cholecalciferol (Vitamin D-3) 50 MCG (1999 UT) capsule Take 1 capsule by mouth at bed time. 01/12/20 22 Active sodium chloride ([place] Nasal [place]) 0.65 % nasal sprayIndication s:Viral syndrome 1-2 sprays on each nostril every 2-3 hours as needed for nasal congestion 30 mL 1 10/19/19 23 Active albuterol 108 (90 Base) MCG/ACT inhalerIndicati ons:Mild intermittent asthma with acute exacerbation Inhale 2 puffs every 6 (six) hours if needed for wheezing. 18 g 1 02/29/20 23 Active Spacer/Aero-Hol ding Chambers deviceIndicatio ns:Mild intermittent asthma with acute exacerbation 1 each Every 4-6 hours as needed (SOB). 1 each 1 02/29/20 23 Active acetaminophen (Tylenol) 500 MG tabletIndicatio ns:Pain Take 1 tablet (500 mg) by mouth every 6 (six) hours if needed for moderate pain. 30 tablet 07/12/20 23 Active albuterol (2.5 MG/3ML) 0.083% nebulizer solutionIndicat ions:Mild intermittent asthma with acute exacerbation INHALE 1 AMPULE USING A NEBULIZER EVERY 4 TO 6 HOURS NEEDED FOR WHEEZING OR SHORTNESS OF BREATH 90 mL 1 09/26/19 24 Active lidocaine (Lidoderm) 5 % patchIndication s:Pain in right knee,Spondylosi s without myelopathy or radiculopathy, lumbar region APPLY 2 PATCHES TOPICALLY TO SKIN, LEAVE ON FOR 12 HOURS AND OFF FOR 12 HOURS DIRECTED 30 patch 2 09/18/19 25 Active Diclofenac Sodium 1 % gel APPLY 2 GRAMS TOPICALLY TO THE AFFECTED AREA(S) ONE OR TWO TIMES DAILY NEEDED 100 g 6 5 4:03 PM EST 11/16/19 25 Active Breo Ellipta 100-25 MCG/ACT aerosol powder INHALE 1 PUFF BY MOUTH EVERY DAY IN THE MORNING 60 each 5 5 4:03 PM EST 11/22/19 25 Active sertraline (Zoloft) 50 MG tablet Take 50 mg by mouth Once per day. Active zolpidem CR (Ambien CR) 6.25 MG ER tablet Take 6.25 mg by mouth if needed at bedtime for sleep. Do not crush, chew, or split. Active loperamide (Imodium) 2 MG capsule TAKE 1 TO 2 CAPSULES BY MOUTH FOUR TIMES DAILY NEEDED FOR DIARRHEA 120 capsule 1 04/14/20 25 Active pregabalin (Lyrica) 50 MG capsule TAKE 1 CAPSULE BY MOUTH THREE TIMES DAILY 90 capsule 04/29/20 25 Active methocarbamol (Robaxin) 500 MG tablet Take 1 tablet (500 mg) by mouth if needed at bedtime for muscle spasms for up to 20 days. 20 tablet 05/05/20 25 Active miconazole (Micotin) 2 % powderIndicatio ns:Tinea corporis Apply twice a day to the affected area 85 g 2 05/05/20 25 Active ibuprofen 800 MG tabletIndicatio ns:Chronic bilateral low back pain, unspecified whether sciatica present TAKE 1 TABLET BY MOUTH EVERY 8 HOURS NEEDED FOR PAIN OR FEVER 90 tablet 1 05/22/20 25 Active atropine 1 % ophthalmic solution INSTILL 1 DROP IN THE LEFT EYE THE NIGHT BEFORE APPOINTMENT THEN INSTILL 1 DROP IN THE LEFT EYE THE MORNING OF APPOINTMENT DIRECTED 03/05/20 25 Active doxepin (SINEquan) 10 MG capsule Take 10 mg by mouth at bedtime. 05/06/20 25 Active Zirgan 0.15 % ophthalmic gel solution APPLY SMALL AMOUNT IN THE RIGHT EYE THREE TIMES DAILY 05/09/20 25 Active LORazepam (Ativan) 0.5 MG tablet TAKE 1 TABLET BY MOUTH NIGHTLY AT BEDTIME NEEDED FOR ANXIETY FOR FOURTEEN DAYS DO NOT EXCEED 1 TABLET IN 24 HOURS 05/06/20 Active timolol (Timoptic) 0.5 % ophthalmic solution PLACE 1 DROP IN THE RIGHT EYE TWICE DAILY 04/29/20 Active valACYclovir (Valtrex) 1 g tablet Take 1 tablet by mouth every 6 (six) hours during the day. 04/29/20 Active lurasidone (Latuda) 120 MG tablet Take 1 tablet by mouth Once per day. 05/06/20 Active Tirzepatide (Mounjaro) 2.5 MG/0.5ML solution auto-injector Inject 2.5 mg under the skin 1 (one) time per week. Start 2.5 mg weekly x 4 weeks, then increase to 5 mg weekly x 4 weeks, then 7.5 mg weekly 2 mL 05/29/20 25 2024 Active memantine (Namenda) 5 MG tabletIndicatio ns:Pain of both eyes,Chronic pain syndrome Take 1 tablet (5 mg) by mouth 2 times daily. 60 tablet 06/04/20 25 2025 Active lurasidone (Latuda) 40 MG tablet Take 40 mg by mouth with evening meal. 2024 Discontinued(T herapy completed) ibuprofen 800 MG tabletIndicatio ns:Chronic bilateral low back pain, unspecified whether sciatica present TAKE 1 TABLET BY MOUTH EVERY 8 HOURS NEEDED FOR PAIN OR FEVER 90 tablet 1 03/28/20 25 2024 Discontinued Tirzepatide-Alonso ght Management (Zepbound) 2.5 MG/0.5ML solution auto-injector Inject 0.5 mL (2.5 mg) under the skin 1 (one) time per week. 2 mL 05/05/20 25 2024 Discontinued(D uplicate order (will not trigger notification to Pharmacy)) Tirzepatide (Mounjaro) 2.5 MG/0.5ML solution auto-injectorIn dications:Morbi d obesity with body mass index (BMI) of 50.0 to 59.9 in adult (HCC),Prediabet es,Lumbar spondylosis Inject 2.5 mg under the skin 1 (one) time per week. Start 2.5 mg weekly x 4 weeks, then increase to 5 mg weekly x 4 weeks, then 7.5 mg weekly 2 mL 05/23/20 25 2024 Discontinued(D uplicate order (will not trigger notification to Pharmacy)) Active Problems Patient Care Coordination No te Formatting of this note migh t be different from the original. C3/CM Tiffany Ayers RN Problem Noted Date Diagnosed Date Chronic pain syndrome 06/04/2025 Legal blindness 07/13/2023 Assessment & Plan (07/13/2023 [...] uveitis? , keratitis? -I called today her oil derrick operator [facility] at [facility] and was told by staff that pt [...] and ATB- maxitrol -advised in length to boby mantilla her oil derrick operator as soon as possible-already apt scheduled for 05/18/2023 -alarm signs and symptoms discussed Abrasion, corneal 05/03/2023 05/03/2023 Glaucoma 05/03/2023 05/03/2023 Assessment & Plan (05/24/2023 11:38 AM EST): - Following with Eye [facility]. - Continue treatment plan per oil derrick operator History of smoking 05/03/2023 05/03/2023 Assessment & Plan (07/13/2023 8:51 AM EST): - Quit in 2021 Right knee pain 05/03/2023 05/03/2023 Morbid obesity with body mas s index (BMI) of 50.0 to 59.9 in adult 05/03/2023 05/03/2023 Assessment & Plan (07/13/2023 9:12 AM EST): - work on lifestyle modifications - her dyspnea is partly due to physical deconditioning and excess weight History of kidney stones 04/10/2023 Lumbar spondylosis 07/29/2022 Assessment & Plan (05/24/2023 9:42 AM EST): -Inadequate pain control. Denies red flag symptoms -Previously tried medications: APAP, NSAIDs, TRIPP-2 inhibitor, Percocet, Cyclobenzaprine, tramadol, topical agents, and most recently T#3 until appt for [facility]. --Pt states these medications [...] provider - unable to keep appt with [facility]. - pt requests to be referred to [facility] pain management and [facility] physical therapy Assessment & Plan (04/10/2023 10:55 [...] in the past, will initiate following plan: Percocet 5-325 nightly PRN for severe pain. Reviewed med safety and SE. Narcan sent to pharmacy Ibuprofen 800mg 1-2x/day as needed for pain. Reviewed med risks and SE Opioid prescription for short term use until pt able to establish with pain management. Counseled on the lack of indication for alf pain, and how this medication will NOT be refilled. Only prescribed until pt able to see Pain Management. 1-2 week follow up via telephone call to re-eval pain management. Follow up in 4 weeks for pain re-eval and asthma, sooner as needed. Bipolar 2 disorder ([facility]) 07/11/2022 Assessment & Plan (07/13/2023 8:51 AM [...] function, call Crisis or seek care at [facility] as needed, do NOT attempt to call this provider for emergency support. F/U with me in 3 weeks. She agrees with the plan. Asthma 06/18/2022 Assessment & Plan (07/13/2023 9:13 AM EST): - previously tried Flovent, Advair, and Symbicort - will try Breo - refer to de icer element winder Assessment & Plan (12/18/2022 6:17 AM EDT): [...] multidisciplinary approach -Unable to keep appt with [facility] due to transportation issue -Referred to pain management and physical therapy in [place]; pt states she has an upcoming appointment -Pt requests T#3 script and verbalized understanding that this will be her last script and there is no further script. Pt was urged to keep appointment with brush painter. Assessment & Plan (05/24/2023 11:37 AM [...] multidisciplinary approach -Unable to keep appt with [facility] due to transportation issue -Refer to pain management and physical therapy in [place] Assessment & Plan (04/10/2023 10:53 AM EDT): [...] -Continue offering multidisciplinary approach -Upcoming appt with payment specialist -Agreed to provide short course of [...] management, physiatry, or chiropractic in the future. [facility] acupuncture clinic Hidradenitis suppurativa 01/07/2013 Assessment & Plan (12/18/2022 6:24 AM EDT): -she was referred to Derm clinic and general surgeon by previous PCP; will review the notes and address at next visit Assessment & Plan (08/01/2022 2:53 PM EST): -Referral to [facility] Derm Clinic -Referral to Gen Surgeon [...] function, call Crisis or seek care at [facility] as needed. Since this provider will be retiring, patient will be tranferred to new [facility] psychiatric provider. She is aware that appointments will be via televisit, and that the provider will not be employed by [facility]. Therefore she gives verbal consent to share protected health information. Any issues or concerns, call [facility]. All her questions were answered and [...] function, call Crisis or seek care at [facility] as needed, do NOT attempt to call [...] function, call Crisis or seek care at [facility] as needed, do NOT attempt to call [...] function, call Crisis or seek care at [facility] as needed, do NOT attempt to call [...] function, call Crisis or seek care at [facility] as needed, do NOT attempt to call [...] function, call Crisis or seek care at [facility] as needed, do NOT attempt to call [...] function, call Crisis or seek care at [facility] as needed, do NOT attempt to call [...] function, call Crisis or seek care at [facility] as needed, do NOT attempt to call this provider for emergency support. Will also refer for BE by integrated clinician. F/U with me in 3 weeks. She agrees with the plan. Resolved Problems Problem Noted Date Diagnosed Date Resolved Date Breast abscess 05/03/2023 05/03/2023 02/05/2025 Decreased movement 05/03/2023 05/03/2023 Dizziness 05/03/2023 05/03/2023 02/05/2025 Left against medical advice 05/03/2023 05/03/2023 05/24/2023 Diarrhea 12/18/2022 02/05/2025 Assessment & Plan (12/18/2022 6:30 AM EDT): - most likely postcholecystectomy diarrhea - Possible IBS - pt declined trying cholestyramine - Rx loperamide as requested by pt Bipolar affective disorder in remission 07/11/2022 07/11/2022 Gallstone 08/21/2015 12/18/2022 Obesity 02/09/2012 12/09/2023 Encounters Date Type Department Care Team Description 06/04/2025 4:00 PM EST Office Visit [facility] [address] [place] [phone] Acosta Jerez MD Morbid obesity with body mass index (BMI) of 50.0 to 59.9 in adult (HCC) (Primary Dx); Chronic pain syndrome; Pain of both eyes; Vision impairment; Screen for STD (sexually transmitted disease); Vaccine refused by patient 06/04/2025 Travel 06/04/2025 Telephone [facility] [address] [place] [phone] Acosta Jerez MD Call Back Request; Lab Orders; Referral (Called pt to book tax advisor appointment pt not interested ) 06/03/[address] [address] Shreya Hummel MA chart prep 05/29/2025 Orders Only [address] [address] Acosta Jerez MD Morbid obesity with body mass index (BMI) of 50.0 to 59.9 in adult ([facility]) (Primary Dx); Prediabetes 05/22/2025 Refill [facility] [address] [place] [phone] Acosta Jerez MD Chronic bilateral low back pain, unspecified whether sciatica present 05/12/2025 Telephone [facility] [address] [place] [address] Acosta Jerez MD Prior Authorization 05/09/2025 3:30 PM EDT Office Visit [facility] OPTOMETRY [address] [place] [phone] Aj, Erin, OD Myopia of both eyes (Primary Dx); Regular astigmatism of both eyes 05/09/2025 Travel 05/09/2025 Outside Procedure [facility] OPTOMETRY [address] [place] [id number] Aj, Erin, OD Myopia of both eyes (Primary Dx); Regular astigmatism of both eyes 05/05/2025 3:15 PM EDT Office Visit [facility]INE [address] [place] [phone] Acosta Jerez MD Morbid obesity with body mass index (BMI) of 50.0 to 59.9 in adult ([facility]) (Primary Dx); Snoring; Hypersomnia; Morning headache; Prediabetes; Lumbar back pain with radiculopathy affecting right lower extremity; Tinea corporis 05/05/2025 Travel 05/02/2025 Telephone [facility] [address] [place] [phone] Acosta Jerez MD Nurse Triage 05/02/[address] [address] Acosta Jerez MD Medication Question 05/01/2025 Telephone [facility] [address] [place] [phone] Acosta Jerez MD Call Back Request 04/29/2025 Refill [facility] [address] [place] [phone] Acosta Jerez MD 04/12/2025 Refill [facility] [address] [place] [address] Acosta Jerez MD 04/04/2025 Refill [facility] [address] [place], [place] [phone] Katie Hardy NP 03/28/2025 Refill [facility] [address] [place] [address] Acosta Jerez MD Chronic bilateral low back pain, unspecified whether sciatica present 03/07/2025 Telephone [facility] [address] [place] [address] Shreya Hummel [place] oct recalls from Last 3 Months Immunizations Immunization Administration Dates Next Due DTP 1981,1981,1981 DTaP 11/14/1985 Hep B, Adolescent or Pediatric 05/23/2011,1996 Hep B, adult 09/19/1996 IPV 11/14/1985, 2,1981,05/18 Influenza, IIV3, injectable 05/23/2011 MMR 06/18/1993,06/23/1987 Pfizer Covid-19 Vaccine 12+ 10/29/2021 Pfizer Covid-19 Vaccine 12+ jonelle-sucrose (Bolanos Cap) 10/29/2021 Pneumococcal Polysaccharide PPSV23 11/15/2010 Pneumococcal, Unspecified 11/15/2010 TD (adult), 2 Lf tetanus tox oid, preservative free, adsorbed 09/14/1988,08/17/1987,06/16/1987 Tdap 02/05/2025,11/15/2010 Family History Medical History Relation Name Comments Diabetes Mother Obesity Mother Diabetes Sister Relation Name Status Comments Mother Sister Social History Tobacco Use Types Packs/Day Years Used Date Smoking Tobacco: Former Cigarettes Passive Smoke Exposure: Past Smokeless Tobacco: Never Tobacco Cessation:Counseling Given: Not [...] Mass Index 53.04 06/04/2025 4:35 PM EST Plan of Treatment Health Maintenance Due Date Last Done Comments Family Planning (PISQ) 1996 HPV Vaccines (1 - 3-dose series) 1996 Pap Smear 2002 Cervical Cancer Screening 2011 HPV/Cotest 2011 Hepatitis B Vaccines (3 of 3 - 3-dose series) 07/18/2011 05/23/2011, 10/23/1996, 09/19/1996 Pneumococcal Vaccine: Pediatrics (0 to 5 Years) and At-Risk Patients (6 to 49) Years (2 of 2 - PCV) 11/16/2011 11/15/2010, 11/15/2010 Mammogram 2021 COVID-19 Vaccine (3 - season) 2025 10/29/2021, 10/29/2021 Influenza Vaccine (#1) 2025 05/23/2011 Depression Monitoring 07/10/2025 01/08/2025, 025 Alcohol/Substance Use Screening 01/08/2026 01/08/2025 Diabetes: Hemoglobin A1C 01/08/2026 025, 12/08/2023, 12/29/2022, Additional history exists Disability Screening 01/08/2026 01/08/2025 SDOH Screening 01/08/2026 01/08/2025 Tobacco Screening 05/26/2026 05/26/2025 Lipid Panel 12/07/2028 12/08/2023, 01/07/2022 Zoster Vaccines (1 of 2) 2031 DTaP/Tdap/Td Vaccines (7 - Td or Tdap) 02/05/2035 02/05/2025, 11/15/2010, 09/14/1988, Additional history exists RSV Patients and Patients Aged 60 years or older (1 - 1-dose 75+ series) 2056 IPV Vaccines Completed 11/14/1985, 0607/1981, 1981, Additional history exists HIV Screening Completed 12/29/2022 Hepatitis C Screening Completed 12/29/2022 HIB Vaccines Aged Out No longer eligi ble based on patient's age to complete this topic Hepatitis A Vaccines Aged Out No long er eligible based on patient's age to complete this topic Meningococcal B Vaccine Aged Out No l onger eligible based on patient's age to complete [...] Procedure Name Priority Date/Time Associated Diagnosis Comments POCT GLYCATED HEMOGLOBIN, TOTAL Routine 01/08/2025 11:24 AM EDT Prediabetes LIPID PANEL WITH REFLEX TO [...] Recently Relevant to Health Maintenance Results * POCT HGB A1C (01/08/2025 11:24 AM EDT) Hemoglobin A1C 5.4 4.0 - 6.0 % QC Media Lot # [id number] Lot# Expiration Date Blood 01/08/2025 11:2 4 AM EDT us Acosta Name POINT OF CARE TEST ENTER/EDIT OR DERABLES Final Result * Lipid Panel with Reflex to Direct LDL (12/08/2023 1:41 PM EDT) Triglycerides 105 <150 mg/dL [facility] Comment:Desirable Triglyceri de: less than 150 mg/dLBorderline High Triglyceride 150-199 mg/dLHigh Triglyceride: 200-499 mg/dLVery High Triglyceride: greater than or equal to 5OO mg/dL Cholesterol 160 <200 mg/dL [facility] Comment:Desirable Cholestero l: less than 200 mg/dLBorderline High Cholesterol: 200-239 mg/dLHigh Cholesterol: greater than 239 mg/dL LDL Cholesterol Calculated 95 <100 mg/dL [facility] Comment:Desirable LDL: less than 100 mg/dLNear Optimal/Above Optimal LDL: 110- 129 mg/dLBorderline High LDL: 130-159 mg/dLHigh LDL: 160-189 mg/dLVery High LDL: greater than or equal to 190 mg/dL HDL Cholesterol 44 >40 mg/dL [facility] Comment:Desirable HDL: great er than 40 mg/dL Note: This HDL assay may give artificially low results in patients with liver disease. Blood 12/08/2023 1:41 PM EDT 12/08/2023 4:08 PM EDT us Leigh Self MD LAB BLOOD ORDERABLES Final Resul t [facility] [address] [place] [phone] * Hepatitis C Antibody with Reflex to HCV, RNA, Quantitative, Real-Time PCR (12/29/2022 2:21 PM EDT) Hepatitis C Antibody NON-REACT MACKENZIE NON-REACT MACKENZIE [facility] Index 0.14 <1.00 [facility] Comment: HCV antibody was non-reactive. There is no laboratory evidence of HCV infection. In most cases, no further action is required. However, if recent HCV exposure is suspected, a test for HCV RNA (test code 68256) is suggested. For additional information please refer to http://education.LOANZ/faq/IMX82d2 (This link is being provided for informational/ educational purposes only.) 12/29/2022 2:21 PM EDT 12/29/2022 2:22 PM EDT Narrative [facility] - 12/30/2022 6:11 PM EDT FASTING:NO FASTING: NO us Baldomero ADAMP LAB BLOOD ORDERABLES Final Res ult [facility] [address], [place] [address] [facility] [address] [place] [address] * HIV-1/2 Antigen and Antibodies, Fourth Generation, with Reflexes (12/29/2022 2:21 PM EDT) HIV Antigen/Antibody, 4th Generation NON-REAC TIVE NON-REAC TIVE [facility] Comment: HIV-1 antigen and HIV-1/HIV-2 antibodies were not detected. There is no laboratory evidence of HIV infection. PLEASE NOTE: This information has been disclosed to you from records whose confidentiality may be protected by state law. If your state requires such protection, then the state law prohibits you from making any further disclosure of the information without the specific written consent of the person to whom it pertains, or as otherwise permitted by law. A general authorization for the release of medical or other information is NOT sufficient for this purpose. For additional information please refer to http://education.LOANZ/faq/TEC195 (This link is being provided for informational/ educational purposes only.) The performance of this assay has not been clinically validated in patients less than 2 years old. 12/29/2022 2:21 PM EDT 12/29/2022 2:22 PM EDT Narrative [facility] - 12/30/2022 6:11 PM EDT FASTING:NO FASTING: NO Baldomero Fuentes [facility] LAB BLOOD ORDERABLES Final Res ult [facility] [address], [place] [address] [facility] [address] [place] [address] from Last 3 Months or Most Recently Relevant to Health Maintenance Insurance [facility] C3 Care Teams Juvenile Justice Officer Relationship Specialty Start Date End Date Name, MD Acosta [address] [place] [address] PCP - General Internal Medicine 12/08/23 Baldomero Fuentes FNP Nurse Practitioner Family Medicine 06/20/23
--- OUTSIDE RECORDS SUMMARY | 2025-06-06 12:18 | XMS_ITS | Encounter Summary ---
Author Organization [employer] Address [address] [place] [address] [address] [place] [address] Care Team Providers Care Chain Testing Machine Operator Name Role Phone Leigh Self MD Primary Care Provider [phone] Baldomero Fuentes Unavailable Unavailable Name, Acosta VALE Primary Care Provider [phone] Reason for Visit * Reason Onset Date Comments Results 01/09/2023 Encounter Details Date Type Department Care Team ([facility] st Contact Info) Description 01/09/2023 Telephone [facility] MEDICINE [address], [place] [phone] Leigh Self MD [address] [place], [place] [phone] Results Social History Tobacco Use Types Packs/Day [...] done last week. Please contact pt at [phone] documented in this encounter Plan of Treatment Not on file documented as of this encounter Visit Diagnoses Not on filedocumented in this encounter Additional Health Concerns Assessment Noted Time PHQ-9 Depression Total Score: 16 023 11:30 AM EDT documented as of this encounter Care Teams Chain Testing Machine Operator Relationship Specialty Start Date End Date Leigh Self MD [address] [place] [address] PCP - General Family Medicine 11/17/22 09/10/23 Name, MD Acosta [address] [place] [address] PCP - General Internal Medicine 12/08/23 Baldomero Fuentes FNP [address] [place] [phone] Nurse Practitioner Family Medicine 06/20/23 documented as of this encounter
--- OUTSIDE RECORDS SUMMARY | 2025-06-06 12:18 | XMS_ITS | Encounter Summary ---
Author Organization [employer] Address [address] [facility] [address]t [place] [address] Care Team Providers Care Profiler Operator Name Role Phone Gina Baldomeroclaudio OSPINA Unavailable Unavailable Name, Acosta VALE Primary Care Provider [phone] Reason for Visit * Reason Comments Med Refill Encounter Details Date Type Department Care Team ([facility] Contact Info) Description 09/25/2024 Refill [facility] OPTOMETRY [address] [place] [address] Aj, Erin, OD [address] [place] [address] Social History Tobacco Use Types Packs/Day Years [...] documented as of this encounter Care Teams Profiler Operator Relationship Specialty Start Date End Date Name, MD Acosta [address] [place] [address] PCP - General Internal Medicine 12/08/23 Baldomero Fuentes FNP Nurse Practitioner Family Medicine 06/20/23 documented as of this encounter
--- OUTSIDE RECORDS SUMMARY | 2025-06-06 12:18 | XMS_ITS | Encounter Summary ---
Author Organization [employer] Address [address] [facility] [address] [place] [address] Care Team Providers Care Pipe Recovery Specialist Name Role Phone Gina Baldomeroclaudio OSPINA Unavailable Unavailable Name, Acosta VALE Primary Care Provider [phone] Reason for Visit * Reason Comments Med Refill Encounter Details Date Type Department Care Team ([facility] Contact Info) Description 09/19/2024 Refill C OPTOMET[facility] [address] [place] [address] Aj, Erin, OD [address] [place] [address] Social History Tobacco Use Types Packs/Day Years [...] documented as of this encounter Care Teams Pipe Recovery Specialist Relationship Specialty Start Date End Date Name, MD Ac[address] [place] [address] PCP - General Internal Medicine 12/08/23 Baldomero Fuentes FNP Nurse Practitioner Family Medicine 06/20/23 documented as of this encounter
[2025-06-06 13:01] LABS: MANUAL DIFF FLAG NO
[2025-06-06 13:03] LABS: Hematocrit 43.0 % (37.0-47.0); Hemoglobin 13.7 g/dl (12.0-16.0); Imm Gran Abs Auto 0.03 X10*3/uL (0.00-0.03); Imm Gran Pct Auto 0.4 % (0.0-0.4); Lymphocytes Absolute Auto 1.5 X10*3/uL (1.2-4.9); Mean Corpuscular HGB Conc 31.9 g/dl (31.0-35.0); Mean Corpuscular Hemoglobin 27.5 pg (27.0-33.0); Mean Corpuscular Volume 86.3 fL (80.0-98.0); NRBC Abs Auto 0.000 X10*3/uL (0.0-0.012); NRBC Pct Auto 0.0 /100WBC (0.0-0.2); Platelet Count 378 X10*3/uL (160-400); Red Blood Count 4.98 X10*6/uL (4.20-5.50); White Blood Count 7.0 X10*3/uL (4.8-10.8)
[2025-06-06 13:30] LABS: Alanine Aminotransferase 18 U/L (0-31); Albumin Level 4.2 g/dL (3.5-5.0); Alkaline Phosphatase 83 U/L (39-117); Anion Gap 11 (12-20); Aspartate Amino Transferase 21 U/L (5-31); Blood Urea Nitrogen 10 mg/dL (9-16); Calcium 9.1 mg/dL (8.4-10.2); Carbon Dioxide 21 mmol/L (22-29); Chloride 110 mmol/L (96-108); Cholesterol 190 mg/dL (<200); Estimated Glomerular Filt Rate > 60; HDL Cholesterol 53 mg/dL (>40); Potassium 3.9 mmol/L (3.3-5.1); Sodium 138 mmol/L (135-145); Total Protein 8.1 g/dL (6.5-8.0); Triglycerides 140 mg/dL (<150)
[2025-06-07 08:57] LABS: HBS Num1 1.89 mIU/mL (0-7.99); HBsAGNum1 0.36 S/CO (0.00-0.99); HIV Num 1 0.08 S/CO (0.00-0.99); Hepatitis B Surface Antigen Negative (Negative); ~HepC Num1 0.36 S/CO (0.00-0.79); ~Hepatitis B Surface Antibody NONREACTIVE (Nonreactive); ~Hepatitis C Antibody Nonreactive (Nonreactive)
== END 2025-06-06 11:27 | disposition home or self-care (01) ==
LOC: HO.HHCL 11:26
PROVIDERS: PCP Internal Medicine Geriatric Medicine; Visit Provider Internal Medicine Geriatric Medicine
DX: Z11.4 Encounter for screening for human immunodeficiency virus [HIV] (principal); Z11.59 Encounter for screening for other viral diseases; Z20.2 Contact with and (suspected) exposure to infections with a predominantly sexual mode of transmission; E66.01 Morbid (severe) obesity due to excess calories; Z68.43 Body mass index [BMI] 50.0-59.9, adult
CPT/HCPCS: 36415; 80053; 80061; 84443; 85025; 86592; 86706; 86803; 87340; 87389